=== PATIENT | female | born 1955 | race Caucasian/White ===

== ENCOUNTER 2020-01-22 07:16 | Inpatient (IN) | payer MEDICARE, OTHER ==
--- NOTE | 2020-01-22 08:08 | ED ---
General Adult HPI - General Chief complaint: Fever Stated complaint: cough, fever Time Seen by Provider: 01/22/20 07:21 Source: EMS, RN notes reviewed, old records reviewed Mode of arrival: EMS Limitations: physical limitation - History of Present Illness Initial comments: 64-year-old female presenting from [facility] with cough, fever, and concern for coronavirus.. There has been a series of known positives at this facility. Patient had developed a cough and fever over the past 24 hours. She is unable to contribute to history secondary to baseline mental status. She is bedbound, receives PEG tube feed and has an indwelling Pantoja catheter. - Related Data Allergies Allergy/AdvReac Type Severity Reaction Status Date / Time No Known Allergies Allergy Verified 01/22/20 07:57 Review of Systems ROS Statement: Those systems with pertinent positive or pertinent negative responses have been documented in the HPI. ROS Other: All systems not noted in ROS Statement are negative. Past Medical History Past Medical History: GERD/Reflux, Musculoskeletal Disorder, Renal Disease, Seizure Disorder, Thyroid Disorder History of Any Multi-Drug Resistant Organisms: None Reported Past Surgical History: Unable to Obtain Past Psychological History: Depression Smoking Status: Never smoker Past Alcohol Use History: None Reported Past Drug Use History: None Reported General Exam Limitations: no limitations General appearance: alert Head exam: Present: atraumatic, normocephalic Eye exam: Present: normal appearance, PERRL Neck exam: Present: normal inspection. Absent: tenderness, meningismus Respiratory exam: Present: rales, rhonchi. Absent: respiratory distress Cardiovascular Exam: Present: regular rate, normal rhythm GI/Abdominal exam: Present: soft. Absent: distended, tenderness, guarding Extremities exam: Present: normal inspection, normal capillary refill. Absent: pedal edema Neurological exam: Present: alert. Absent: oriented X3 Skin exam: Present: warm, dry, intact. Absent: cyanosis, diaphoretic Course Vital Signs 01/22/20 01/22/20 01/22/20 07:19 08:30 09:00 Temperature 99.8 F H Pulse Rate 84 80 81 Respiratory 18 20 21 Rate Blood Pressure 145/68 141/73 140/77 O2 Sat by Pulse 96 95 96 Oximetry EKG Findings - EKG Comments: EKG Findings:: EKG: Normal sinus rhythm, rate of 85, SC interval 184, QRS duration 82, QTC 423, no ST segment elevation Medical Decision Making - Medical Decision Making 64-year-old female from long-term care facility with cough, fever, and testing positive for coronavirus. x-ray, negative for focal pneumonia. Normal CBC, a specific wong virus test results including acute phase reactants are pending. the nursing facility where this patient resides does not have the capacity to isolate the patient's with coronavirus. She will be admitted. case discussed with Dr. Lopez, patient will be admitted with pulmonology on consult. - Lab Data Result diagrams: 01/22/20 07:31 01/22/20 07:31 Lab Results 01/22/20 01/22/20 01/22/20 Range/Units 07:31 07:31 07:31 WBC 4.3 (3.8-10.6) k/uL RBC 4.64 (3.80-5.40) m/uL Hgb 13.2 (11.4-16.0) gm/dL Hct 39.8 (34.0-46.0) % MCV 85.8 (80.0-100.0) fL MCH 28.5 (25.0-35.0) pg MCHC 33.2 (31.0-37.0) g/dL RDW 15.5 (11.5-15.5) % Plt Count 177 (150-450) k/uL PT 10.1 (9.0-12.0) sec INR 1.0 (<1.2) APTT 23.8 (22.0-30.0) sec D-Dimer 0.45 (<0.60) mg/L FEU Sodium 141 (137-145) mmol/L Potassium 4.8 (3.5-5.1) mmol/L Chloride 109 H (98-107) mmol/L Carbon Dioxide 25 (22-30) mmol/L Anion Gap 7 mmol/L BUN 33 H (7-17) mg/dL Creatinine 1.22 H (0.52-1.04) mg/dL Est GFR (CKD-EPI)AfAm 54 (>60 ml/min/1.73 sqM) Est GFR (CKD-EPI)NonAf 47 (>60 ml/min/1.73 sqM) Glucose 103 H (74-99) mg/dL Plasma Lactic Acid Rom (0.7-2.0) mmol/L Calcium 8.7 (8.4-10.2) mg/dL Magnesium 2.2 (1.6-2.3) mg/dL Total Bilirubin 0.5 (0.2-1.3) mg/dL AST 30 (14-36) U/L ALT 20 (4-34) U/L Alkaline Phosphatase 114 (38-126) U/L Lactate Dehydrogenase 576 (313-618) U/L Total Protein 7.0 (6.3-8.2) g/dL Albumin 3.9 (3.5-5.0) g/dL Urine Color Urine Appearance (Clear) Urine pH (5.0-8.0) Ur Specific [place] (1.001-1.035) Urine Protein (Negative) Urine Glucose (UA) (Negative) Urine Ketones (Negative) Urine Blood (Negative) Urine Nitrite (Negative) Urine Bilirubin (Negative) Urine Urobilinogen (<2.0) mg/dL Ur Leukocyte Esterase (Negative) Urine RBC (0-5) /hpf Urine WBC (0-5) /hpf Urine WBC Clumps (None) /hpf Ur Squamous Epith Cells (0-4) /hpf Amorphous Sediment (None) /hpf Urine Bacteria (None) /hpf Urine Mucus (None) /hpf 01/22/20 01/22/20 Range/Units 07:31 08:09 WBC (3.8-10.6) k/uL RBC (3.80-5.40) m/uL Hgb (11.4-16.0) gm/dL Hct (34.0-46.0) % MCV (80.0-100.0) fL MCH (25.0-35.0) pg MCHC (31.0-37.0) g/dL RDW (11.5-15.5) % Plt Count (150-450) k/uL PT (9.0-12.0) sec INR (<1.2) APTT (22.0-30.0) sec D-Dimer (<0.60) mg/L FEU Sodium (137-145) mmol/L Potassium (3.5-5.1) mmol/L Chloride (98-107) mmol/L Carbon Dioxide (22-30) mmol/L Anion Gap mmol/L BUN (7-17) mg/dL Creatinine (0.52-1.04) mg/dL Est GFR (CKD-EPI)AfAm (>60 ml/min/1.73 sqM) Est GFR (CKD-EPI)NonAf (>60 ml/min/1.73 sqM) Glucose (74-99) mg/dL Plasma Lactic Acid Rom 1.2 (0.7-2.0) mmol/L Calcium (8.4-10.2) mg/dL Magnesium (1.6-2.3) mg/dL Total Bilirubin (0.2-1.3) mg/dL AST (14-36) U/L ALT (4-34) U/L Alkaline Phosphatase (38-126) U/L Lactate Dehydrogenase (313-618) U/L Total Protein (6.3-8.2) g/dL Albumin (3.5-5.0) g/dL Urine Color Yellow Urine Appearance Cloudy H (Clear) Urine pH 7.5 (5.0-8.0) Ur Specific [place] 1.016 (1.001-1.035) Urine Protein 1+ H (Negative) Urine Glucose (UA) Negative (Negative) Urine Ketones Negative (Negative) Urine Blood Small H (Negative) Urine Nitrite Negative (Negative) Urine Bilirubin Negative (Negative) Urine Urobilinogen <2.0 (<2.0) mg/dL Ur Leukocyte Esterase Large H (Negative) Urine RBC 13 H (0-5) /hpf Urine WBC 57 H (0-5) /hpf Urine WBC Clumps Many H (None) /hpf Ur Squamous Epith Cells 5 H (0-4) /hpf Amorphous Sediment Rare H (None) /hpf Urine Bacteria Few H (None) /hpf Urine Mucus Few H (None) /hpf Disposition Clinical Impression: COVID-19 Disposition[facility] Condition: Stable Is patient prescribed a controlled substance at d/c from ED?: No Referrals: Andi Ivy MD [Primary Care Provider] - 1-2 days Decision to Admit Reason: Admit from EC Decision Date: 01/22/20 Decision Time: 09:09
[2020-01-22 08:27] LABS: Amorphous Sediment,Urine Rare /hpf; Appearance,Urine Cloudy (Clear); Bacteria,Urine Few /hpf; Bilirubin,Urine Negative (Negative); Blood,Urine Small (Negative); Color,Urine Yellow; Glucose,Urine (UA) Negative (Negative); Ketones,Urine Negative (Negative); Leukocyte Esterase,Urine Large (Negative); Mucus,Urine Few /hpf; Nitrite,Urine Negative (Negative); PH, Urine 7.5 (5.0-8.0); Protein,Urine 1+ (Negative); RBC,Urine 13 /hpf (0-5); Specific Gravity,Urine 1.016 (1.001-1.035); Squamous Epithelial Cell,Urine 5 /hpf (0-4); Urobilinogen,Urine <2.0 mg/dL (<2.0); WBC,Urine 57 /hpf (0-5)
[2020-01-22 08:27] LABS: D-Dimer 0.45 mg/L FEU (<0.60); Partial Thromboplastin Time 23.8 sec (22.0-30.0); Prothrombin Time 10.1 sec (9.0-12.0)
--- NOTE | 2020-01-22 08:29 | XR ---
EXAMINATION TYPE: XR chest 1V portable DATE OF EXAM: 01/22/2020 COMPARISON: NONE HISTORY: Cough and fever. Suspected COVID-19 pneumonia. TECHNIQUE: Single AP portable frontal upright view of the chest is obtained. FINDINGS: There is mild chronic parenchymal changes bilaterally suspected with reticular interstitia l prominence without suspicious focal air space opacity, pleural effusion, or pneumothorax seen. The cardiac silhouette size is mildly enlarged. The osseous structures are intact. IMPRESSION: Chronic changes and mild cardiomegaly without acute pulmonary process.
[2020-01-22 08:31] LABS: Albumin 3.9 g/dL (3.5-5.0); Calcium 8.7 mg/dL (8.4-10.2); Magnesium 2.2 mg/dL (1.6-2.3); Potassium 4.8 mmol/L (3.5-5.1); Total Bilirubin 0.5 mg/dL (0.2-1.3)
[2020-01-22] MEDS ORDERED: cefTRIAXone IN SWFI 1,000 MG/10 ML SYRINGE IVP STA (08:34)
[2020-01-22 08:36] LABS: HCT 39.8 % (34.0-46.0); HGB 13.2 gm/dL (11.4-16.0); MCH 28.5 pg (25.0-35.0); MCHC 33.2 g/dL (31.0-37.0); MCV 85.8 fL (80.0-100.0); Mean Platelet Volume 8.2; Platelet Count 177 k/uL (150-450); RBC 4.64 m/uL (3.80-5.40); RDW 15.5 % (11.5-15.5); WBC 4.3 k/uL (3.8-10.6)
[2020-01-22] MEDS ORDERED: NALOXONE 0.4 MG/ML 1 ML VIAL IV PRN (09:05)
[2020-01-22 09:07] LABS: Band Neutrophils % 2 %; Lymphocytes # (M) 0.86 k/uL (1.0-4.8); Monocytes # (M) 0.39 k/uL (0-1.0); Neutrophils % (M) 69 %; Nucleated Red Blood Cells 0 /100 WBC (0-0); Total Cells Counted 100
[2020-01-22 09:08] LABS: Anisocytosis (M) Present; Poikilocytosis (M) Present
[2020-01-22] MEDS: SODIUM CHLORIDE 0.9% 1,000 ML IV SCH (09:16)
[2020-01-22] MEDS: ACETAMINOPHEN TAB 325 MG TAB PO PRN (09:41)
[2020-01-22 09:57] LABS: C Reactive Protein 37.6 mg/L (<10.0)
[2020-01-22] MEDS ORDERED: ACETAMINOPHEN ORAL SUSP 160 MG/5 ML CUP PEG/G-TUBE PRN (12:50)
[2020-01-22] MEDS ORDERED: bisacodyL 10 MG SUPP RECTAL PRN (12:50)
[2020-01-22] MEDS ORDERED: MAGNESIUM HYDROXIDE 2,400 MG/10 ML CUP PEG/G-TUBE PRN (12:50)
[2020-01-22] MEDS: levETIRAcetam ORAL SOLN 500 MG/5 ML CUP PEG/G-TUBE SCH (16:59)
[2020-01-22] MEDS: ENOXAPARIN 40 MG/0.4 ML SYRINGE SQ SCH (17:00)
[2020-01-22] MEDS: carBAMazepine 200 MG TAB PEG/G-TUBE SCH (17:00)
[2020-01-22 17:06] LABS: Ferritin 66.6 ng/mL (10.0-291.0)
--- NOTE | 2020-01-22 18:52 | XR ---
EXAMINATION TYPE: XR abdomen 1V DATE OF EXAM: 01/22/2020 COMPARISON: NONE HISTORY: PEG tube check. TECHNIQUE: 3 views FINDINGS: Small amount of contrast was injected into the gastrostomy tube that appears to be in the b kishore of the stomach. There is no definite contrast extravasation. IMPRESSION: Gastrostomy tube appears to be in good position in the stomach. Limited exam.
--- NOTE | 2020-01-22 21:50 | P.CNPUL ---
History of Present Illness Consult date: 01/22/20 Chief complaint: fever and cough and COVID positive History of present illness: 64-year-old female patient, nonverbal due to chronic neurologic impairment , resides at [facility] and the patient was experiencing some increased cough and fever. Based on several other residents being covid positive, the patient was checked and the rapid testing came back positive and the patient was transferred to our facility for further care. The patient obviously is bedbound. She received enteral feeding for incision support. She has a chronic indwelling Pantoja catheter. She cannot volunteer any history. Time of my evaluation, the patient was on room air oxygen with a pulse is 95%. Chest x-ray was showing no acute pulmonary infiltrate. [place] presents for point. The patient has a slight lymphopenia with and lymphocyte count of 0.86. D-dimer is 0.45. LFTs were normal. The CRP was at 37.6. Lactic acid is at 1.2. The pro-calcitonin level is at 0.1. 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 History of Any Multi-Drug Resistant Organisms: None Reported Past Surgical History: Unable to Obtain Additional Past Surgical History / Comment(s): PEG Past Anesthesia/Blood Transfusion Reactions: Unable to Obtain Smoking Status: Never smoker - Past Family History Father History Unknown: Yes Mother History Unknown: Yes Medications and Allergies Home Medications Medication Instructions Recorded Confirmed Type Acetaminophen Oral Susp [Tylenol] 640 mg PEG/G-TUBE Q6H PRN 01/22/20 01/22/20 History Aspirin EC [Ecotrin Low Dose] 81 mg PEG/G-TUBE DAILY@0700 01/22/20 01/22/20 History Banatrol Plus 1 pack PEG/G-TUBE Q12H PRN 01/22/20 01/22/20 History Clobazam [Onfi] 10 mg PO DAILY@1700 01/22/20 01/22/20 History Esomeprazole Magnesium [NexIUM] 40 mg PEG/G-TUBE DAILY@0500 01/22/20 01/22/20 History Fluticasone Nasal [place] [Flonase 1 spr EA NOSTRIL DAILY@1200 01/22/20 01/22/20 History Nasal [place]] Levothyroxine Sodium [Synthroid] 150 mcg PEG/G-TUBE DAILY@0300 01/22/20 01/22/20 History Liquacel Liquid 30 ml PEG/G-TUBE DAILY@0700 01/22/20 01/22/20 History Magnesium Hydroxide [Milk of 2,400 mg PEG/G-TUBE Q48H PRN 01/22/20 01/22/20 History Magnesia] Na Phos,M-B/Na Phos,Di-Ba [Fleet 133 ml PEG/G-TUBE Q96H PRN 01/22/20 01/22/20 History Adult] bisacodyL [Dulcolax] 10 mg RECTAL DAILY PRN 01/22/20 01/22/20 History carBAMazepine [carBAMazepine Oral 300 mg PEG/G-TUBE BID@0700,1700 01/22/20 01/22/20 History Susp] levETIRAcetam [Keppra Oral 500 mg PEG/G-TUBE BID@0700,1700 01/22/20 01/22/20 History Solution] Allergies Allergy/AdvReac Type Severity Reaction Status Date / Time No Known Allergies Allergy Verified 01/22/20 09:52 Physical Exam Vitals: Vital Signs Temp Pulse Pulse Resp BP BP Pulse Ox 01/22/20 14:14 98.2 F 71 17 103/71 93 L 01/22/20 12:30 73 21 150/73 94 L 01/22/20 12:00 77 23 151/75 94 L 01/22/20 11:30 77 24 149/67 94 L 01/22/20 11:18 98.7 F 01/22/20 11:00 77 24 155/70 95 01/22/20 10:41 99.1 F 01/22/20 10:30 79 23 147/79 94 L 01/22/20 10:00 80 24 143/79 95 01/22/20 09:51 100.1 F H 01/22/20 09:30 80 22 152/75 94 L 01/22/20 09:00 81 21 140/77 96 01/22/20 08:30 80 20 141/73 95 01/22/20 07:19 99.8 F H 84 18 145/68 96 Intake and Output 01/22/20 01/22/20 01/22/20 06:59 14:59 22:59 Other: Voiding Method Indwelling Catheter Weight 104.326 kg The patient appeared well nourished and normally developed. Vital signs as documented. Head exam is unremarkable. No scleral icterus or corneal arcus noted. Neck is without jugular venous distension, thyromegaly, or carotid bruits. Carotid upstrokes are brisk bilaterally. Lungs are clear to auscultation and percussion. Cardiac exam reveals the PMI to be normally sized and situated. Rhythm is regular. First and second heart sounds normal. No murmurs, rubs or gallops. Abdominal exam reveals normal bowel sounds, no masses, no organomegaly and no aortic enlargement. the patient is a PEG tube placed on the patient'sactivated site is dry clean and intact. Extremities are nonedematous and both femoral and pedal pulses are normal.Examination of the skin revealed no evidence of significant rashes, suspicious appearing nevi or other concerning lesions. Results - Laboratory Findings CBC and BMP: 01/22/20 07:31 01/22/20 07:31 PT/INR, D-dimer PT 10.1 sec (9.0-12.0) 01/22/20 07:31 INR 1.0 (<1.2) 01/22/20 07:31 D-Dimer 0.45 mg/L FEU (<0.60) 01/22/20 07:31 Abnormal lab findings: Abnormal Labs 01/22/20 01/22/20 01/22/20 07:31 07:31 08:09 Lymphocytes # (Manual) 0.86 L Chloride 109 H BUN 33 H Creatinine 1.22 H Glucose 103 H C-Reactive Protein 37.6 H Urine Appearance Cloudy H Urine Protein 1+ H Urine Blood Small H Ur Leukocyte Esterase Large H Urine RBC 13 H Urine WBC 57 H Urine WBC Clumps Many H Ur Squamous Epith Cells 5 H Amorphous Sediment Rare H Urine Bacteria Few H Urine Mucus Few H - Diagnostic Findings Chest x-ray: image reviewed Assessment and Plan Plan: 1 COVID 19 infection, with secondary cough and fever. The patient has a signs of respiratory insufficiency and the patient has no sins of active pneumonia and the patient is maintaining a pulse ox of 95% 2 suspected UTI, the patient has a chronic indwelling Pantoja catheter for chronic urinary retention 3 developmental disorder 4 history of chronic seizures 5 neuromuscular dysfunction secondary to above 6 dysphagia, chronic and the patient receives enteral feeding for nutritional support 7 chronic urinary retention and the patient is a chronic indwelling Pantoja catheter. 8 Questionable history of DVT and pulmonary embolism 9 chronic kidney disease 10 hypothyroidism Plan Monitor Fever pattern Monitor respiratory status Monitor pulse ox IV Rocephin for possible UTI Urine cultures Blood cultures Enteral feeding for nutritional support Lovenox 40 mg SC daily Will follow.
--- NOTE | 2020-01-22 22:27 | P.HPIM ---
History of Present Illness H&P Date: 01/22/20 Patient is a 64-year-old female with a known history of developmental disorder and neuromuscular dysfunction, dysphagia status post PEG tube placement, urinary retention and chronic indwelling Pantoja catheter and bedridden, history of DVT and seizure disorder, hypothyroidism was sent to ER with complaints of cough and fever for the past 1 to 2 days. T-max was 100.1 on admission. Patient was tested positive at [facility] and was transferred to ER for further management. Chest x-ray showed chronic changes and mild cardiomegaly without acute pulmonary process EKG showed normal sinus rhythm Abdominal x-ray was done due to distention showed gastrostomy tube appears to be in good position in the stomach. Limited exam. Laboratory data showed absolute lymphocyte counts 0.86, BUN 33 and creatinine 1.22 LDH 576, ferritin 66.6, pro calcitonin 0.13 Urinalysis showed cloudy with large leukocyte esterase with RBCs and WBCs. Review of Systems Complete review of systems could not be obtained at this time. 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 History of Any Multi-Drug Resistant Organisms: None Reported Past Surgical History: Unable to Obtain Additional Past Surgical History / Comment(s): PEG Past Anesthesia/Blood Transfusion Reactions: Unable to Obtain Smoking Status: Never smoker - Past Family History Father History Unknown: Yes Mother History Unknown: Yes Medications and Allergies Home Medications Medication Instructions Recorded Confirmed Type Acetaminophen Oral Susp [Tylenol] 640 mg PEG/G-TUBE Q6H PRN 01/22/20 01/22/20 H istory Aspirin EC [Ecotrin Low Dose] 81 mg PEG/G-TUBE DAILY@0700 01/22/20 01/22/20 History Banatrol Plus 1 pack PEG/G-TUBE Q12H PRN 01/22/20 01/22/20 History Clobazam [Onfi] 10 mg PO DAILY@1700 01/22/20 01/22/20 History Esomeprazole Magnesium [NexIUM] 40 mg PEG/G-TUBE DAILY@0500 01/22/20 01/22/20 History Fluticasone Nasal [place] [Flonase 1 spr EA NOSTRIL DAILY@1200 01/22/20 01/22/20 History Nasal [place]] Levothyroxine Sodium [Synthroid] 150 mcg PEG/G-TUBE DAILY@0300 01/22/20 01/22/20 History Liquacel Liquid 30 ml PEG/G-TUBE DAILY@0700 01/22/20 01/22/20 History Magnesium Hydroxide [Milk of 2,400 mg PEG/G-TUBE Q48H PRN 01/22/20 01/22/20 History Magnesia] Na Phos,M-B/Na Phos,Di-Ba [Fleet 133 ml PEG/G-TUBE Q96H PRN 01/22/20 01/22/20 History Adult] bisacodyL [Dulcolax] 10 mg RECTAL DAILY PRN 01/22/20 01/22/20 History carBAMazepine [carBAMazepine Oral 300 mg PEG/G-TUBE BID@0700,1700 01/22/20 01/22/20 History Susp] levETIRAcetam [Keppra Oral 500 mg PEG/G-TUBE BID@0700,1700 01/22/20 01/22/20 History Solution] Allergies Allergy/AdvReac Type Severity Reaction Status Date / Time No Known Allergies Allergy Verified 01/22/20 09:52 Physical Exam Vitals: Vital Signs Temp Pulse Resp BP Pulse Ox 01/22/20 12:30 73 21 150/73 94 L 01/22/20 12:00 77 23 151/75 94 L 01/22/20 11:30 77 24 149/67 94 L 01/22/20 11:18 98.7 F 01/22/20 11:00 77 24 155/70 95 01/22/20 10:41 99.1 F 01/22/20 10:30 79 23 147/79 94 L 01/22/20 10:00 80 24 143/79 95 01/22/20 09:51 100.1 F H 01/22/20 09:30 80 22 152/75 94 L 01/22/20 09:00 81 21 140/77 96 01/22/20 08:30 80 20 141/73 95 01/22/20 07:19 99.8 F H 84 18 145/68 96 Intake and Output 01/21/20 01/22/20 01/22/20 22:59 06:59 14:59 Other: Weight 104.326 kg PHYSICAL EXAMINATION: Patient is lying in the bed comfortably, no acute distress, awake alert but not oriented.. HEENT: Normocephalic. Neck is supple. Pupils reactive. Nostrils clear. Oral cavity is moist. Ears reveal no drainage. Neck reveals no JVD, carotid bruits, or thyromegaly. CHEST EXAMINATION: Trachea is central. Symmetrical expansion. Bibasilar diminished air entry.Lung zheng clear to auscultation and percussion. CARDIAC: Normal S1, S2 with no gallops. No murmurs ABDOMEN: Soft. distended. Bowel sounds present. PEG tube site with yellowish drainage and surrounding excoriation. No organomegaly. No abdominal bruits. Extremities: trace edema. No clubbing or cyanosis Neurologically awake, alert and non verbal. able to move extremities while on bed Skin: No rash or skin lesions. Psychiatric: Coperative. Musculoskeletal: No joint swelling or deformity. Results CBC & Chem 7: 01/22/20 07:31 01/22/20 07:31 Labs: Abnormal Lab Results - Last 24 Hours (Table) 01/22/20 01/22/20 01/22/20 Range/Units 07:31 07:31 08:09 Lymphocytes # (Manual) 0.86 L (1.0-4.8) k/uL Chloride 109 H (98-107) mmol/L BUN 33 H (7-17) mg/dL Creatinine 1.22 H (0.52-1.04) mg/dL Glucose 103 H (74-99) mg/dL C-Reactive Protein 37.6 H (<10.0) mg/L Urine Appearance Cloudy H (Clear) Urine Protein 1+ H (Negative) Urine Blood Small H (Negative) Ur Leukocyte Esterase Large H (Negative) Urine RBC 13 H (0-5) /hpf Urine WBC 57 H (0-5) /hpf Urine WBC Clumps Many H (None) /hpf Ur Squamous Epith Cells 5 H (0-4) /hpf Amorphous Sediment Rare H (None) /hpf Urine Bacteria Few H (None) /hpf Urine Mucus Few H (None) /hpf Thrombosis Risk Factor Assmnt - DVT/VTE Prophylaxis DVT/VTE Prophylaxis: Pharmacologic Prophylaxis ordered - Choose All That Apply Any of the Below Risk Factors Present?: Yes Each Factor Represents 1 point: Obesity (BMI >25), Serious lung disease incl. pneumonia (< 1month) Other Risk Factors: Yes Each Risk Factor Represents 2 Points: Age 61-74 years Other congenital or acquired thrombophilia - If yes, enter type in comment: No Thrombosis Risk Factor Assessment Total Risk Factor Score: 4 Thrombosis Risk Factor Assessment Level: Moderate Risk Assessment and Plan Assessment: Acute COVID-19 infection with cough and fever. Acute urinary tract infection complicated with underlying chronic indwelling Pantoja catheter. Malfunction PEG tube Abdominal distention rule out obstruction. Developmental disorder and neuromuscular dysfunction Chronic dysphagia on PEG tube feeding Chronic urinary retention Hypothyroidism Chronic kidney disease stage III Seizure disorder on Keppra DVT prophylaxis with Lovenox 40 mg subcu daily Plan: Patient will be continued on gentle IV hydration with normal saline and continue with antibiotics in the form of ceftriaxone and follow-up urine culture reports. Continue with levothyroxine and follow-up closely. Currently patient is oxygenating well on room air. Pulmonary is on board. General surgery was consulted due to PEG tube malfunctioning and unable to flush. Further recommendations based on the clinical course. Prognosis guarded at this time. Time with Patient: Greater than 30
[2020-01-23] MEDS: LEVOTHYROXINE 75 MCG TAB PEG/G-TUBE SCH (02:33)
[2020-01-23] MEDS: PANTOPRAZOLE SODIUM 40 MG GRANULE PKT PEG/G-TUBE SCH (02:33)
[2020-01-23] MEDS ORDERED: LIQUACEL PEG/G-TUBE SCH (07:00)
[2020-01-23] MEDS: SODIUM CHLORIDE 0.9% 1,000 ML IV SCH (07:13)
[2020-01-23] MEDS: ENOXAPARIN 40 MG/0.4 ML SYRINGE SQ SCH (08:12)
[2020-01-23] MEDS: ASPIRIN 81 MG PEG/G-TUBE SCH (08:12)
[2020-01-23] MEDS: levETIRAcetam ORAL SOLN 500 MG/5 ML CUP PEG/G-TUBE SCH ×2 (08:13→17:06)
[2020-01-23] MEDS: FLUTICASONE 50MCG/SPRAY NASAL 16GM EA NOSTRIL SCH (08:13)
[2020-01-23] MEDS: carBAMazepine 200 MG TAB PEG/G-TUBE SCH ×2 (08:13→17:07)
--- NOTE | 2020-01-23 13:17 | P.GSCN ---
<Violet Membreno - Last Filed: 01/23/20 13:16> History of Present Illness Consult date: 01/23/20 History of present illness: CHIEF COMPLAINT: PEG tube malfunction HISTORY OF PRESENT ILLNESS: This is a 64-year-old female with developmental disorder, neuromuscular dysfunction, dysphagia status post PEG tube placement chronic indwelling Pantoja catheter for urinary retention, history of DVT and se izure disorder, hypothyroidism and chronic kidney disease. Patient is Tested positive for cold added at the scene like [facility]. There has been a series of known positive Covid cases at this facility. She did have cough and fever 100.1 on admission. Patient also was found to have a UTI and started on antibiotics. Surgery was consulted due to malfunctioning PEG tube. There is also concern of pus like drainage coming from the PEG tube aspirate per nurse. Cultures were obtained. At this time PEG tube is functioning appropriately. The nurse was able to place medications through the PEG tube. Abdominal x-ray shows gastrostomy tube appears to be in good position in the s tomach. There has been no nausea or vomiting reported. No evidence of abdominal pain. Please note that patient is unable to communicate and his poor historian. Therefore, information was obtained from chart and nursing staff. PAST MEDICAL HISTORY: See list. PAST SURGICAL HISTORY: See list. MEDICATIONS: See list. ALLERGIES: See list. SOCIAL HISTORY: No illicit drug use. REVIEW OF SYSTEMS: CONSTITUTIONAL: Denies fever or chills. HEENT: Denies blurred vision, vision changes, or eye pain. Denies hemoptysis CARDIOVASCULAR: Denies chest pain or pressure. RESPIRATORY: No shortness of breath. GASTROINTESTINAL: See HPI for pertinent findings HEMATOLOGIC: Denies bleeding disorders. GENITOURINARY: Denies any blood in urine or increased urinary frequency. SKIN: Denies pruitis. Denies rash. PHYSICAL EXAM: VITAL SIGNS: Reviewed GENERAL: Well-developed in no acute distress. HEENT: No sclera icterus. Extraocular movements grossly intact. Moist buccal mucosa. Head is atraumatic, normocephalic. No nasal drainage. ABDOMEN: Soft. Nondistended. Nontender. PEG tube site no evidence of drainage at this time. PEG tube is in good position NEUROLOGIC: Awake and lying in bed comfortably. LABORATORY DATA: WBC 4.3 hemoglobin 13.2 platelets 177 D-dimer 0.45 lactic 1.2 IMAGING: Abdominal x-ray shows gastrostomy tube appears to be in good position in the stomach Chest x-ray chronic changes and mild cardiomegaly without acute pulmonary process ASSESSMENT: 1. Possible Malfunctioning PEG tube 2. Acute COVID 19 infection with cough and fever 3. UTI with chronic indwelling Pantoja catheter 4. Chronic dysphagia and patient has PEG tube PLAN: -PEG tube is in good position and functioning appropriately -We'll restart tube feedings Thank you for this consultation Physician Test Driver note has been reviewed by physician. Signing provider agrees with the documented findings, assessment, and plan of care. 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 History of Any Multi-Drug Resistant Organisms: None Reported Past Surgical History: Unable to Obtain Additional Past Surgical History / Comment(s): PEG Past Anesthesia/Blood Transfusion Reactions: Unable to Obtain Smoking Status: Never smoker - Past Family History Father History Unknown: Yes Mother History Unknown: Yes Medications and Allergies Home Medications Medication Instructions Recorded Confirmed Type Acetaminophen Oral Susp [Tylenol] 640 mg PEG/G-TUBE Q6H PRN 01/22/20 01/22/20 History Aspirin EC [Ecotrin Low Dose] 81 mg PEG/G-TUBE DAILY@0700 01/22/20 01/22/20 History Banatrol Plus 1 pack PEG/G-TUBE Q12H PRN 01/22/20 01/22/20 History Clobazam [Onfi] 10 mg PO DAILY@1700 01/22/20 01/22/20 History Esomeprazole Magnesium [NexIUM] 40 mg PEG/G-TUBE DAILY@0500 01/22/20 01/22/20 History Fluticasone Nasal [place] [Flonase 1 spr EA NOSTRIL DAILY@1200 01/22/20 01/22/20 History Nasal [place]] Levothyroxine Sodium [Synthroid] 150 mcg PEG/G-TUBE DAILY@0300 01/22/20 01/22/20 History Liquacel Liquid 30 ml PEG/G-TUBE DAILY@0700 01/22/20 01/22/20 History Magnesium Hydroxide [Milk of 2,400 mg PEG/G-TUBE Q48H PRN 01/22/20 01/22/20 History Magnesia] Na Phos,M-B/Na Phos,Di-Ba [Fleet 133 ml PEG/G-TUBE Q96H PRN 01/22/20 01/22/20 History Adult] bisacodyL [Dulcolax] 10 mg RECTAL DAILY PRN 01/22/20 01/22/20 History carBAMazepine [carBAMazepine Oral 300 mg PEG/G-TUBE BID@0700,1700 01/22/20 01/22/20 History Susp] levETIRAcetam [Keppra Oral 500 mg PEG/G-TUBE BID@0700,1700 01/22/20 01/22/20 History Solution] Allergies Allergy/AdvReac Type Severity Reaction Status Date / Time No Known Allergies Allergy Verified 01/22/20 09:52 Surgical - Exam Vital Signs Temp Pulse Resp BP Pulse Ox 99.8 F H 84 18 145/68 96 01/22/20 07:19 01/22/20 07:19 01/22/20 07:19 01/22/20 07:19 01/22/20 07:19 Results - Labs 01/22/20 07:31 01/22/20 07:31 Abnormal Lab Results - Last 24 Hours (Table) 01/22/20 Range/Units 07:31 Procalcitonin 0.13 H (0.02-0.09) ng/mL Microbiology - Last 24 Hours (Table) 01/22/20 07:31 Blood Culture - Preliminary Blood No Growth after 24 hours 01/22/20 18:00 Gram Stain - Preliminary Abdomen Wound Culture - Preliminary 01/22/20 08:09 Urine Culture - Preliminary Urine,Voided <Rusty Denton - Last Filed: 01/23/20 13:46> History of Present Illness History of present illness: As above. Patient apparently had a large amount of gastric secretions around the PEG tube yesterday. Concern regarding the positioning of the tube initiated surgical consult. Catheterogram confirmed feeding tube within the stomach. Per nursing has been flushing easily. Will begin tube feeds at this time. Currently the site is free of any significant inflammation or drainage. Will follow. Surgical - Exam Vital Signs Temp Pulse Resp BP Pulse Ox 99.8 F H 84 18 145/68 96 01/22/20 07:19 01/22/20 07:19 01/22/20 07:19 01/22/20 07:19 01/22/20 07:19 Results - Labs 01/22/20 07:31 01/22/20 07:31 Abnormal Lab Results - Last 24 Hours (Table) 01/22/20 Range/Units 07:31 Procalcitonin 0.13 H (0.02-0.09) ng/mL Microbiology - Last 24 Hours (Table) 01/22/20 07:31 Blood Culture - Preliminary Blood No Growth after 24 hours 01/22/20 18:00 Gram Stain - Preliminary Abdomen Wound Culture - Preliminary 01/22/20 08:09 Urine Culture - Preliminary Urine,Voided
--- NOTE | 2020-01-23 13:38 | P.PN ---
Subjective Progress Note Date: 01/23/20 Principal diagnosis: Acute CoVID 19 infection 64-year-old female patient, nonverbal due to chronic neurologic impairment , resides at [facility] and the patient was experiencing some increased cough and fever. Based on several other residents being covid positive, the patient was checked and the rapid testing came back positive and the patient was transferred to our facility for further care. The patient obviously is bedbound. She received enteral feeding for incision support. She has a chronic indwelling Pantoja catheter. She cannot volunteer any history. Time of my evaluation, the patient was on room air oxygen with a pulse is 95%. Chest x-ray was showing no acute pulmonary infiltrate. Parvin presents for point. The patient has a slight lymphopenia with and lymphocyte count of 0.86. D-dimer is 0.45. LFTs were normal. The CRP was at 37.6. Lactic acid is at 1.2. The pro-calcitonin level is at 0.1. Urinalysis showing +1 protein, 57 WBC with clumps. The patient is seen today 01/23/2020 in follow-up on the regular medical floor. She is currently resting comfortably in bed. Awake and alert in no acute distress. Maintaining O2 saturations in the low 90s on room air. Temperature 99.1. Blood culture reveals no growth. Urine culture pending. Abdominal wound culture pending. Abdominal x-ray revealed gastrostomy tube in good position in the stomach. She is currently on ceftriaxone, Lovenox. Objective - Vital Signs Vital signs: Vital Signs Temp 99.1 F 01/23/20 07:00 Pulse 87 01/23/20 07:00 Resp 16 01/23/20 07:00 BP 164/80 01/23/20 07:00 Pulse Ox 91 L 01/23/20 07:00 Intake & Output 01/22/20 01/23/20 01/23/20 18:59 06:59 18:59 Output Total 550 400 Balance -550 -400 Weight 104.326 kg Output: Urine 550 400 Uretheral (Pantoja) 550 Other: Voiding Method Indwelling Catheter Indwelling Catheter Indwelling Catheter # Bowel Movements 1 - Exam A 64-year-old female patient appeared well nourished and normally developed. On room air. Vital signs as documented. Head exam is unremarkable. No scleral icterus or corneal arcus noted. Neck is without jugular venous distension, thyromegaly, or carotid bruits. Carotid upstrokes are brisk bilaterally. Lungs are clear to auscultation and percussion. Cardiac exam reveals the PMI to be normally sized and situated. Rhythm is regular. First and second heart sounds normal. No murmurs, rubs or gallops. Abdominal exam reveals normal bowel sounds, no masses, no organomegaly and no aortic enlargement. PEG tube site is dry clean and intact. Extremities are nonedematous and both femoral and pedal pulses are normal. Examination of the skin revealed no evidence of significant rashes, suspicious appearing nevi or other concerning lesions. - Labs CBC & Chem 7: 01/22/20 07:31 01/22/20 07:31 Labs: Abnormal Lab Results - Last 24 Hours (Table) 01/22/20 Range/Units 07:31 Procalcitonin 0.13 H (0.02-0.09) ng/mL Microbiology - Last 24 Hours (Table) 01/22/20 07:31 Blood Culture - Preliminary Blood No Growth after 24 hours 01/22/20 18:00 Gram Stain - Preliminary Abdomen Wound Culture - Preliminary 01/22/20 08:09 Urine Culture - Preliminary Urine,Voided Assessment and Plan Assessment: 1 COVID 19 infection, with secondary cough and fever. The patient has a signs of respiratory insufficiency and the patient has no signs of active pneumonia and the patient is maintaining a pulse ox of 91% 2 suspected UTI, the patient has a chronic indwelling Pantoja catheter for chronic urinary retention, currently on ceftriaxone 3 developmental disorder 4 history of chronic seizures 5 neuromuscular dysfunction secondary to above 6 dysphagia, chronic and the patient receives enteral feeding for nutritional support 7 chronic urinary retention and the patient is a chronic indwelling Pantoja catheter. 8 Questionable history of DVT and pulmonary embolism 9 chronic kidney disease 10 hypothyroidism Plan The patient was seen and evaluated by Dr. Rick Continue current medications We'll continue to follow I, the cosigning physician, performed a history & physical examination of the patient. Lungs sounds are clear. Maintaining good O2 saturations in the 90s on room air. I discussed the assessment and plan of care with my nurse practitioner, Tiffani Corea. I attest to the above note as dictated by her.
[2020-01-23] MEDS: ACETAMINOPHEN TAB 325 MG TAB PO PRN (17:25)
[2020-01-23] MEDS ORDERED: LEVOFLOXACIN 500 MG TAB PO SCH (21:00)
[2020-01-24] MEDS: SODIUM CHLORIDE 0.9% 1,000 ML IV SCH ×2 (04:23→22:41)
[2020-01-24] MEDS: PANTOPRAZOLE SODIUM 40 MG GRANULE PKT PEG/G-TUBE SCH (05:26)
[2020-01-24] MEDS: LEVOTHYROXINE 75 MCG TAB PEG/G-TUBE SCH (05:26)
[2020-01-24] MEDS: ENOXAPARIN 40 MG/0.4 ML SYRINGE SQ SCH (08:05)
[2020-01-24] MEDS: carBAMazepine 200 MG TAB PEG/G-TUBE SCH ×2 (08:06→16:23)
[2020-01-24] MEDS: ASPIRIN 81 MG PEG/G-TUBE SCH (08:06)
[2020-01-24] MEDS: levETIRAcetam ORAL SOLN 500 MG/5 ML CUP PEG/G-TUBE SCH ×2 (08:06→16:23)
[2020-01-24] MEDS: FLUTICASONE 50MCG/SPRAY NASAL 16GM EA NOSTRIL SCH (11:21)
--- NOTE | 2020-01-24 12:41 | P.PN ---
Subjective Progress Note Date: 01/24/20 Principal diagnosis: Feeding tube malfunction Patient doing well today. Tolerating tube feeds at goal. No issues with the feeding tube at this time. No obvious discomfort. Objective - Vital Signs Vital signs: Vital Signs Temp 97.8 F 01/24/20 07:00 Pulse 76 01/24/20 07:00 Resp 16 01/24/20 07:00 BP 145/71 01/24/20 07:00 Pulse Ox 94 L 01/24/20 07:00 Intake & Output 01/23/20 01/24/20 01/24/20 18:59 06:59 18:59 Output Total 400 Balance -400 Weight 84 kg 85.5 kg 85.5 kg Output: Urine 400 Other: Voiding Method Indwelling Catheter Indwelling Catheter Indwelling Catheter # Bowel Movements 1 - Exam Abdomen: Soft, nontender, nondistended, gastrostomy tube intact without abnormalities noted - Labs CBC & Chem 7: 01/22/20 07:31 01/22/20 07:31 Labs: Microbiology - Last 24 Hours (Table) 01/22/20 07:31 Blood Culture - Preliminary Blood No Growth after 48 hours 01/22/20 08:09 Urine Culture - Final Urine,Voided Pseudomonas aeruginosa Providencia stuartii 01/22/20 18:00 Gram Stain - Preliminary Abdomen Wound Culture - Preliminary Presumptive Staph aureus Assessment and Plan (1) Gastrostomy tube dysfunction Narrative/Plan: Gastrostomy tube functioning well at this time. Continue tube feeds at goal. We'll sign off. Please call if needed. Current Visit: Yes Status: Acute Code(s): K94.23 - GASTROSTOMY MALFUNCTION SNOMED Code(s): 581187574
--- NOTE | 2020-01-24 14:46 | P.PN ---
Subjective Progress Note Date: 01/24/20 Principal diagnosis: Acute Covid 19 infection 64-year-old female patient, nonverbal due to chronic neurologic impairment , resides at [facility] and the patient was experiencing some increased cough and fever. Based on several other residents being covid positive, the patient was checked and the rapid testing came back positive and the patient was transferred to our facility for further care. The patient obviously is bedbound. She received enteral feeding for incision support. She has a chronic indwelling Pantoja catheter. She cannot volunteer any history. Time of my evaluation, the patient was on room air oxygen with a pulse is 95%. Chest x-ray was showing no acute pulmonary infiltrate. Parvin presents for point. The patient has a slight lymphopenia with and lymphocyte count of 0.86. D-dimer is 0.45. LFTs were normal. The CRP was at 37.6. Lactic acid is at 1.2. The pro-calcitonin level is at 0.1. Urinalysis showing +1 protein, 57 WBC with clumps. The patient is seen today 01/23/2020 in follow-up on the regular medical floor. She is currently resting comfortably in bed. Awake and alert in no acute distress. Maintaining O2 saturations in the low 90s on room air. Temperature 99.1. Blood culture reveals no growth. Urine culture pending. Abdominal wound culture pending. Abdominal x-ray revealed gastrostomy tube in good position in the stomach. She is currently on ceftriaxone, Lovenox. On 01/24/2020 patient seen in follow-up on selective care unit. She is awake and alert, much more awake on today's evaluation, and she is able to answer some simple questions. Appears to be in no acute distress, room air pulse ox is 96%, hemodynamically stable, she's been afebrile today, her last episode of fever was yesterday evening with a temp of 101 Fahrenheit. Her Covid 19 PCR came back positive. Her urine culture showed pseudomonas aeruginosa and Providencia STuartii, . Ceftriaxone switch the patient to Fortaz. Remains on IV hydration with 0.9 normal saline at 50 ML per hour. Breathing seems to be comfortable, no cough or congestion, productive chest pain. Room air pulse ox is 96% Objective - Vital Signs Vital signs: Vital Signs Temp 98.3 F 01/24/20 14:02 Pulse 73 10/30/20 14:02 Resp 16 01/24/20 14:02 BP 131/74 01/24/20 14:02 Pulse Ox 96 01/24/20 14:02 Intake & Output 01/23/20 01/24/20 01/24/20 18:59 06:59 18:59 Output Total 400 Balance -400 Weight 84 kg 85.5 kg 85.5 kg Output: Urine 400 Other: Voiding Method Indwelling Catheter Indwelling Catheter Indwelling Catheter # Bowel Movements 1 - Exam GENERAL EXAM: Alert, very pleasant, 64-year-old female on room air with pulse ox of 96%, comfortable in no apparent distress. HEAD: Normocephalic/atraumatic. EYES: Normal reaction of pupils, equal size. Conjunctiva pink, sclera white. NOSE: Clear with pink turbinates. THROAT: No erythema or exudates. NECK: No masses, no JVD, no thyroid enlargement, no adenopathy. CHEST: No chest wall deformity. Symmetrical expansion. LUNGS: Equal air entry with no crackles, wheeze, rhonchi or dullness. CVS: Regular rate and rhythm, normal S1 and S2, no gallops, no murmurs, no rubs ABDOMEN: Soft, nontender. No hepatosplenomegaly, normal bowel sounds, no guarding or rigidity. EXTREMITIES: No clubbing, no edema, no cyanosis, 2+ pulses and upper and lower extremities. MUSCULOSKELETAL: Muscle strength and tone normal. SPINE: No scoliosis or deformity SKIN: No rashes CENTRAL NERVOUS SYSTEM: Alert and oriented -3. No focal deficits, tone is normal in all 4 extremities. PSYCHIATRIC: Alert and oriented -3. Appropriate affect. Intact judgment and insight. - Labs CBC & Chem 7: 01/22/20 07:31 01/22/20 07:31 Labs: Abnormal Lab Results - Last 24 Hours (Table) 01/22/20 Range/Units 07:31 Coronavirus (PCR) Detected A (Not Detected) Microbiology - Last 24 Hours (Table) 01/22/20 07:31 Blood Culture - Preliminary Blood No Growth after 48 hours 01/22/20 08:09 Urine Culture - Final Urine,Voided Pseudomonas aeruginosa Providencia stuartii 01/22/20 18:00 Gram Stain - Preliminary Abdomen Wound Culture - Preliminary Presumptive Staph aureus Assessment and Plan Plan: Assessment: 1 COVID 19 infection, with secondary cough and fever. The patient has a signs of respiratory insufficiency and the patient has no signs of active pneumonia and the patient is maintaining a pulse ox of 91% 2 acute UTI, the patient has a chronic indwelling Pantoja catheter for chronic urinary retention, with urine cultures positive for pseudomonas aeruginosa and Providencia STuartii 3 developmental disorder 4 history of chronic seizures 5 neuromuscular dysfunction secondary to above 6 dysphagia, chronic and the patient receives enteral feeding for nutritional support 7 chronic urinary retention and the patient is a chronic indwelling Pantoja catheter. 8 Questionable history of DVT and pulmonary embolism 9 chronic kidney disease 10 hypothyroidism Plan: We'll switch the antibiotic coverage to Fortaz, DC the Rocephin. Continue gentle IV hydration, repeat labs in the morning, she is breathing comfortably, she is afebrile. Continue monitoring dyspnea, oxygenation level, will obtain follow-up markers in the morning. We'll continue to follow I performed a history & physical examination of the patient and discussed their management with my nurse practitioner, Nicole Belcher. I reviewed the nurse practitioner's note and agree with the documented findings and plan of care. Lung sounds are positive for diminished breath sounds. The findings and the impression was discussed with the patient. I attest to the documentation by the nurse practitioner. Time with Patient: Less than 30
[2020-01-24] MEDS ORDERED: LEVOFLOXACIN 250 MG TAB PO SCH (21:00)
--- NOTE | 2020-01-24 23:41 | P.PN ---
Subjective Progress Note Date: 01/23/20 Patient is a 64-year-old female with a known history of developmental disorder and neuromuscular dysfunction, dysphagia status post PEG tube placement, urinary retention and chronic indwelling Pantoja catheter and bedridden, history of DVT and seizure disorder, hypothyroidism was sent to ER with complaints of cough and fever for the past 1 to 2 days. T-max was 100.1 on admission. [facility] and was transferred to ER for further management. Chest x-ray showed chronic changes and mild cardiomegaly without acute pulmonary process EKG showed normal sinus rhythm Abdominal x-ray was done due to distention showed gastrostomy tube appears to be in good position in the stomach. Limited exam. Laboratory data showed absolute lymphocyte counts 0.86, BUN 33 and creatinine 1.22 LDH 576, ferritin 66.6, pro calcitonin 0.13 Urinalysis showed cloudy with large leukocyte esterase with RBCs and WBCs. 01/23/2020 Patient is currently lying in the bed comfortably. T-max is 99.1. Blood cultures and urine cultures have been negative so far. Abdominal x-ray showed gastrostomy tube appears to be in good position in the stomach. General surgery recommends no intervention at this time. Patient is being continued on antibiotics in the form of ceftriaxone and follow- up urine culture report. Continue with Lovenox 90 gentle IV hydration. Patient cannot provide any history at baseline. Current medications reviewed. Objective - Vital Signs Vital signs: Vital Signs Temp 98.1 F 01/23/20 19:31 Pulse 81 01/23/20 19:31 Resp 15 01/23/20 19:31 BP 174/82 01/23/20 19:31 Pulse Ox 93 L 01/23/20 19:31 Intake & Output 01/23/20 01/23/20 01/24/20 06:59 18:59 06:59 Output Total 400 Balance -400 Weight 84 kg Output: Urine 400 Other: Voiding Method Indwelling Catheter Indwelling Catheter # Bowel Movements 1 - Exam PHYSICAL EXAMINATION: Patient is lying in the bed comfortably, no acute distress, awake alert but not oriented.. HEENT: Normocephalic. Neck is supple. Pupils reactive. Nostrils clear. Oral cavity is moist. Ears reveal no drainage. Neck reveals no JVD, carotid bruits, or thyromegaly. CHEST EXAMINATION: Trachea is central. Symmetrical expansion. Bibasilar diminished air entry.Lung zheng clear to auscultation and percussion. CARDIAC: Normal S1, S2 with no gallops. No murmurs ABDOMEN: Soft. distended. Bowel sounds present. PEG tube site with yellowish drainage and surrounding excoriation. No organomegaly. No abdominal bruits. Extremities: trace edema. No clubbing or cyanosis Neurologically awake, alert and non verbal. able to move extremities while on bed Skin: No rash or skin lesions. Psychiatric: Coperative. Musculoskeletal: No joint swelling or deformity. - Labs CBC & Chem 7: 01/22/20 07:31 01/22/20 07:31 Labs: Microbiology - Last 24 Hours (Table) 01/22/20 18:00 Gram Stain - Preliminary Abdomen Wound Culture - Preliminary Presumptive Staph aureus 01/22/20 08:09 Urine Culture - Preliminary Urine,Voided Gram Neg Bacilli Gram Neg Bacilli#2 01/22/20 07:31 Blood Culture - Preliminary Blood No Growth after 24 hours Assessment and Plan Assessment: Acute COVID-19 infection with cough and fever. Acute urinary tract infection complicated with underlying chronic indwelling Pantoja catheter. Malfunction PEG tube. resolved now. Abdominal distention rule out obstruction. Developmental disorder and neuromuscular dysfunction Chronic dysphagia on PEG tube feeding Chronic urinary retention Hypothyroidism Chronic kidney disease stage III Seizure disorder on Keppra DVT prophylaxis with Lovenox 40 mg subcu daily Plan: Patient will be continued on gentle IV hydration with normal saline and continue with antibiotics in the form of ceftriaxone and follow-up urine culture reports. Continue with levothyroxine and follow-up closely. Currently patient is oxygenating well on room air. Pulmonary is on board. Further recommendations based on the clinical course. Prognosis guarded at this time. Time with Patient: Greater than 30
--- NOTE | 2020-01-24 23:43 | P.PN ---
Subjective Progress Note Date: 01/24/20 Principal diagnosis: Acute COVID-19 infection with cough and fever. UTI Patient is a 64-year-old female with a known history of developmental disorder and neuromuscular dysfunction, dysphagia status post PEG tube placement, urinary retention and chronic indwelling Pantoja catheter and bedridden, history of DVT and seizure disorder, hypothyroidism was sent to ER with complaints of cough and fever for the past 1 to 2 days. T-max was 100.1 on admission. Patient was tested positive at [facility] and was transferred to ER for further management. Chest x-ray showed chronic changes and mild cardiomegaly without acute pulmonary process EKG showed normal sinus rhythm Abdominal x-ray was done due to distention showed gastrostomy tube appears to be in good position in the stomach. Limited exam. Laboratory data showed absolute lymphocyte counts 0.86, BUN 33 and creatinine 1.22 LDH 576, ferritin 66.6, pro calcitonin 0.13 Urinalysis showed cloudy with large leukocyte esterase with RBCs and WBCs. 01/23/2020 Patient is currently lying in the bed comfortably. T-max is 99.1. Blood cultures and urine cultures have been negative so far. Abdominal x-ray showed gastrostomy tube appears to be in good position in the stomach. General surgery recommends no intervention at this time. Patient is being continued on antibiotics in the form of ceftriaxone and follow- up urine culture report. Continue with Lovenox 90 gentle IV hydration. Patient cannot provide any history at baseline. 01/24/2020 Patient is currently lying in the bed awake alert and could not provide history at baseline. Patient is nonverbal. Does not appear to be in any discomfort. Tube feeding was restarted. Otherwise patient was febrile yesterday evening with T-max of 101. Currently on room air at 94% oxygen saturation. Urine cultures growing Pseudomonas aeruginosa and Zeferino. Wound cultures showed staph aureus. Patient was started on ceftazidime as per urine cultures. Continued on gentle IV hydration. Pulmonary and general surgery is on board. Current medications reviewed. Objective - Vital Signs Vital signs: Vital Signs Temp 99.4 F 01/24/20 19:36 Pulse 83 01/24/20 19:44 Resp 18 01/24/20 19:44 BP 148/96 01/24/20 19:36 Pulse Ox 98 01/24/20 19:36 Intake & Output 01/24/20 01/24/20 01/25/20 06:59 18:59 06:59 Output Total 400 500 Balance -400 -500 Weight 85.5 kg 85.5 kg Output: Urine 400 500 Uretheral (Pantoja) 500 Other: Voiding Method Indwelling Catheter Indwelling Catheter Indwelling Catheter # Bowel Movements 1 - Exam PHYSICAL EXAMINATION: Patient is lying in the bed comfortably, no acute distress, awake alert but not oriented.. HEENT: Normocephalic. Neck is supple. Pupils reactive. Nostrils clear. Oral cavity is moist. Ears reveal no drainage. Neck reveals no JVD, carotid bruits, or thyromegaly. CHEST EXAMINATION: Trachea is central. Symmetrical expansion. Bibasilar diminished air entry.Lung zheng clear to auscultation and percussion. CARDIAC: Normal S1, S2 with no gallops. No murmurs ABDOMEN: Soft. distended. Bowel sounds present. PEG tube site with yellowish drainage and surrounding excoriation. No organomegaly. No abdominal bruits. Extremities: trace edema. No clubbing or cyanosis Neurologically awake, alert and non verbal. able to move extremities while on b ed Skin: No rash or skin lesions. Psychiatric: Coperative. Musculoskeletal: No joint swelling or deformity. - Labs CBC & Chem 7: 01/22/20 07:31 01/22/20 07:31 Labs: Abnormal Lab Results - Last 24 Hours (Table) 01/22/20 Range/Units 07:31 Coronavirus (PCR) Detected A (Not Detected) Microbiology - Last 24 Hours (Table) 01/22/20 18:00 Gram Stain - Final Abdomen Wound Culture - Final Staphylococcus aureus 01/22/20 07:31 Blood Culture - Preliminary Blood No Growth after 48 hours 01/22/20 08:09 Urine Culture - Final Urine,Voided Pseudomonas aeruginosa Providencia stuartii Assessment and Plan Assessment: Acute COVID-19 infection with cough and fever. Acute urinary tract infection complicated with underlying chronic indwelling Pantoja catheter.Wound cultures growing Pseudomonas Malfunction PEG tube. resolved now. Abdominal distention rule out obstruction. Developmental disorder and neuromuscular dysfunction Chronic dysphagia on PEG tube feeding Chronic urinary retention Hypothyroidism Chronic kidney disease stage III Seizure disorder on Keppra DVT prophylaxis with Lovenox 40 mg subcu daily Plan: Patient will be continued on gentle IV hydration with normal saline and continue with antibiotics in the form of ceftriaxone and follow-up urine culture reports. Continue with levothyroxine and follow-up closely. Currently patient is oxygenating well on room air. Pulmonary is on board. Further recommendations based on the clinical course. Prognosis guarded at this time. Time with Patient: Greater than 30
[2020-01-25] MEDS: LEVOTHYROXINE 75 MCG TAB PEG/G-TUBE SCH (02:49)
[2020-01-25] MEDS: PANTOPRAZOLE SODIUM 40 MG GRANULE PKT PEG/G-TUBE SCH (05:34)
[2020-01-25 06:43] LABS: Basophils % (A) 1 %; Eosinophils % (A) 1 %; HCT 41.8 % (34.0-46.0); HGB 13.1 gm/dL (11.4-16.0); Hypochromasia Slight; Lymphocytes % (A) 41 %; MCH 27.8 pg (25.0-35.0); MCHC 31.3 g/dL (31.0-37.0); MCV 88.5 fL (80.0-100.0); Mean Platelet Volume 8.1; Monocytes # (A) 0.2 k/uL (0-1.0); Monocytes % (A) 7 %; Neutrophils # (A) 1.2 k/uL (1.3-7.7); Neutrophils % (A) 47 %; Platelet Count 174 k/uL (150-450); RBC 4.72 m/uL (3.80-5.40); RDW 15.6 % (11.5-15.5); WBC 2.5 k/uL (3.8-10.6)
[2020-01-25] MEDS: ASPIRIN 81 MG PEG/G-TUBE SCH (08:16)
[2020-01-25] MEDS: carBAMazepine 200 MG TAB PEG/G-TUBE SCH ×2 (08:16→16:18)
[2020-01-25] MEDS: levETIRAcetam ORAL SOLN 500 MG/5 ML CUP PEG/G-TUBE SCH ×2 (08:17→16:18)
[2020-01-25] MEDS: ENOXAPARIN 40 MG/0.4 ML SYRINGE SQ SCH (08:17)
[2020-01-25 08:50] LABS: African American GFR (CKD) 58 (>60 ml/min/1.73 sqM); Anion Gap 7 mmol/L; Blood Urea Nitrogen 25 mg/dL (7-17); Calcium 8.2 mg/dL (8.4-10.2); Carbon Dioxide 22 mmol/L (22-30); Chloride 116 mmol/L (98-107); Glucose 115 mg/dL (74-99); Non-African American GFR(CKD) 50 (>60 ml/min/1.73 sqM); Potassium 4.9 mmol/L (3.5-5.1); Sodium 145 mmol/L (137-145)
[2020-01-25] MEDS: FLUTICASONE 50MCG/SPRAY NASAL 16GM EA NOSTRIL SCH (11:55)
--- NOTE | 2020-01-25 12:45 | P.PN ---
Subjective Progress Note Date: 01/25/20 Principal diagnosis: Acute CoVID 19 infection 64-year-old female patient, nonverbal due to chronic neurologic impairment , resides at [facility] and the patient was experiencing some increased cough and fever. Based on several other residents being covid positive, the patient was checked and the rapid testing came back positive and the patient was transferred to our facility for further care. The patient obviously is bedbound. She received enteral feeding for incision support. She has a chronic indwelling Pantoja catheter. She cannot volunteer any history. Time of my evaluation, the patient was on room air oxygen with a pulse is 95%. Chest x-ray was showing no acute pulmonary infiltrate. Parvin presents for point. The patient has a slight lymphopenia with and lymphocyte count of 0.86. D-dimer is 0.45. LFTs were normal. The CRP was at 37.6. Lactic acid is at 1.2. The pro-calcitonin level is at 0.1. Urinalysis showing +1 protein, 57 WBC with clumps. The patient is seen today 01/23/2020 in follow-up on the regular medical floor. She is currently resting comfortably in bed. Awake and alert in no acute distress. Maintaining O2 saturations in the low 90s on room air. Temperature 99.1. Blood culture reveals no growth. Urine culture pending. Abdominal wound culture pending. Abdominal x-ray revealed gastrostomy tube in good position in the stomach. She is currently on ceftriaxone, Lovenox. On 01/24/2020 patient seen in follow-up on selective care unit. She is awake and alert, much more awake on today's evaluation, and she is able to answer some simple questions. Appears to be in no acute distress, room air pulse ox is 96%, hemodynamically stable, she's been afebrile today, her last episode of fever was yesterday evening with a temp of 101 Fahrenheit. Her Covid 19 PCR came back positive. Her urine culture showed pseudomonas aeruginosa and Providencia STuartii, . Ceftriaxone switch the patient to Fortaz. Remains on IV hydration with 0.9 normal saline at 50 ML per hour. Breathing seems to be comfortable, no cough or congestion, productive chest pain. Room air pulse ox is 96% The patient is seen today 01/25/2020 in follow-up on the regular medical floor. She is currently resting comfortably in bed. Awake and alert in no acute distress. Maintaining O2 saturation in the mid 90s on room air. She's been afebrile. Hemodynamically stable. Urine culture positive for pseudomonas and Providencia stuartii, abdominal wound positive for MSSA. White count 2.5. Hemoglobin 13.1. Sodium 145. Potassium 4.9. Creatinine 1.16. Continue ceftazidim. Objective - Vital Signs Vital signs: Vital Signs Temp 98.2 F 01/25/20 06:57 Pulse 82 01/25/20 06:57 Resp 17 01/25/20 06:57 BP 138/67 01/25/20 06:57 Pulse Ox 95 01/25/20 06:57 Intake & Output 01/24/20 01/25/20 01/25/20 18:59 06:59 18:59 Intake Total 400 Output Total 500 600 Balance -500 -200 Weight 85.5 kg 90.5 kg Intake: Intake, IV Titration 400 Amount Sodium Chloride 0.9% 1, 400 000 ml @ 50 mls/hr IV . Q20H [facility] Rx#:[id number] Output: Urine 500 600 Uretheral (Pantoja) 500 Other: Voiding Method Indwelling Catheter Indwelling Catheter Indwelling Catheter # Bowel Movements 1 - Exam A 64-year-old female patient appeared well nourished and normally developed. On room air with O2 saturations at 95%. Vital signs as documented. Head exam is unremarkable. No scleral icterus or corneal arcus noted. Neck is without jugular venous distension, thyromegaly, or carotid bruits. Carotid upstrokes are brisk bilaterally. Lungs are clear to auscultation and percussion. Cardiac exam reveals the PMI to be normally sized and situated. Rhythm is regular. First and second heart sounds normal. No murmurs, rubs or gallops. Abdominal exam reveals normal bowel sounds, no masses, no organomegaly and no aortic enlargement. PEG tube site is dry clean and intact. Extremities are nonedematous and both femoral and pedal pulses are normal. Examination of the skin revealed no evidence of significant rashes, suspicious appearing nevi or other concerning lesions. - Labs CBC & Chem 7: 01/25/20 05:53 01/25/20 05:53 Labs: Abnormal Lab Results - Last 24 Hours (Table) 01/22/20 01/25/20 01/25/20 Range/Units 07:31 05:53 05:53 WBC 2.5 L (3.8-10.6) k/uL RDW 15.6 H (11.5-15.5) % Neutrophils # 1.2 L (1.3-7.7) k/uL Chloride 116 H (98-107) mmol/L BUN 25 H (7-17) mg/dL Creatinine 1.16 H (0.52-1.04) mg/dL Glucose 115 H (74-99) mg/dL Calcium 8.2 L (8.4-10.2) mg/dL Coronavirus (PCR) Detected A (Not Detected) Microbiology - Last 24 Hours (Table) 01/22/20 07:31 Blood Culture - Preliminary Blood No Growth after 72 hours 01/22/20 18:00 Gram Stain - Final Abdomen Wound Culture - Final Staphylococcus aureus 01/22/20 08:09 Urine Culture - Final Urine,Voided Pseudomonas aeruginosa Providencia stuartii Assessment and Plan Assessment: 1 COVID 19 infection, with secondary cough and fever. The patient has a signs of respiratory insufficiency and the patient has no signs of active pneumonia and the patient is maintaining a pulse ox of 95% on room air 2 urinary tract infection secondary to pseudomonas aeruginosa and Providencia stuartii, the patient has a chronic indwelling Pantoja catheter for chronic urina ry retention, currently on ceftazidime 3 developmental disorder 4 history of chronic seizures 5 neuromuscular dysfunction secondary to above 6 dysphagia, chronic and the patient receives enteral feeding for nutritional support 7 chronic urinary retention and the patient is a chronic indwelling Pantoja catheter. 8 Questionable history of DVT and pulmonary embolism 9 chronic kidney disease 10 hypothyroidism Plan The patient was seen and evaluated by Dr. Prabhjot Gilliland for discharge from the pulmonary standpoint Continue current medications I, the cosigning physician, performed a history & physical examination of the patient. Lungs sounds are clear. Maintaining good O2 saturations in the 90s on room air. I discussed the assessment and plan of care with my nurse practitioner, Tiffani Corea. I attest to the above note as dictated by her.
[2020-01-25] MEDS: SODIUM CHLORIDE 0.9% 1,000 ML IV SCH (16:23)
[2020-01-26] MEDS: LEVOTHYROXINE 75 MCG TAB PEG/G-TUBE SCH (04:56)
[2020-01-26] MEDS: PANTOPRAZOLE SODIUM 40 MG GRANULE PKT PEG/G-TUBE SCH (04:56)
[2020-01-26] MEDS: levETIRAcetam ORAL SOLN 500 MG/5 ML CUP PEG/G-TUBE SCH ×2 (07:28→16:28)
[2020-01-26] MEDS: ASPIRIN 81 MG PEG/G-TUBE SCH (07:29)
[2020-01-26] MEDS: ENOXAPARIN 40 MG/0.4 ML SYRINGE SQ SCH (07:29)
[2020-01-26] MEDS: carBAMazepine 200 MG TAB PEG/G-TUBE SCH ×2 (07:29→16:29)
[2020-01-26 08:46] LABS: Basophils % (A) 1 %; Eosinophils # (A) 0.1 k/uL (0-0.7); Eosinophils % (A) 2 %; HCT 41.1 % (34.0-46.0); HGB 12.6 gm/dL (11.4-16.0); Hypochromasia Moderate; Lymphocytes # (A) 1.1 k/uL (1.0-4.8); Lymphocytes % (A) 35 %; MCH 27.3 pg (25.0-35.0); MCHC 30.7 g/dL (31.0-37.0); MCV 88.8 fL (80.0-100.0); Mean Platelet Volume 8.1; Monocytes # (A) 0.2 k/uL (0-1.0); Monocytes % (A) 6 %; Neutrophils # (A) 1.6 k/uL (1.3-7.7); Neutrophils % (A) 55 %; Platelet Count 155 k/uL (150-450); RBC 4.62 m/uL (3.80-5.40); RDW 15.7 % (11.5-15.5)
[2020-01-26 09:03] LABS: African American GFR (CKD) 61 (>60 ml/min/1.73 sqM); Anion Gap 7 mmol/L; Blood Urea Nitrogen 26 mg/dL (7-17); Calcium 8.2 mg/dL (8.4-10.2); Carbon Dioxide 24 mmol/L (22-30); Chloride 117 mmol/L (98-107); Glucose 128 mg/dL (74-99); Non-African American GFR(CKD) 53 (>60 ml/min/1.73 sqM); Potassium 4.7 mmol/L (3.5-5.1); Sodium 148 mmol/L (137-145)
--- NOTE | 2020-01-26 12:24 | P.PN ---
Subjective Progress Note Date: 01/26/20 Principal diagnosis: Acute CoVID 19 infection 64-year-old female patient, nonverbal due to chronic neurologic impairment , resides at [facility] and the patient was experiencing some increased cough and fever. Based on several other residents being covid positive, the patient was checked and the rapid testing came back positive and the patient was transferred to our facility for further care. The patient obviously is bedbound. She received enteral feeding for incision support. She has a chronic indwelling Pantoja catheter. She cannot volunteer any history. Time of my evaluation, the patient was on room air oxygen with a pulse is 95%. Chest x-ray was showing no acute pulmonary infiltrate. Parvin presents for point. The patient has a slight lymphopenia with and lymphocyte count of 0.86. D-dimer is 0.45. LFTs were normal. The CRP was at 37.6. Lactic acid is at 1.2. The pro-calcitonin level is at 0.1. Urinalysis showing +1 protein, 57 WBC with clumps. The patient is seen today 01/23/2020 in follow-up on the regular medical floor. She is currently resting comfortably in bed. Awake and alert in no acute distress. Maintaining O2 saturations in the low 90s on room air. Temperature 99.1. Blood culture reveals no growth. Urine culture pending. Abdominal wound culture pending. Abdominal x-ray revealed gastrostomy tube in good position in the stomach. She is currently on ceftriaxone, Lovenox. On 01/24/2020 patient seen in follow-up on selective care unit. She is awake and alert, much more awake on today's evaluation, and she is able to answer some simple questions. Appears to be in no acute distress, room air pulse ox is 96%, hemodynamically stable, she's been afebrile today, her last episode of fever was yesterday evening with a temp of 101 Fahrenheit. Her Covid 19 PCR came back positive. Her urine culture showed pseudomonas aeruginosa and Providencia STuartii, . Ceftriaxone switch the patient to Fortaz. Remains on IV hydration with 0.9 normal saline at 50 ML per hour. Breathing seems to be comfortable, no cough or congestion, productive chest pain. Room air pulse ox is 96% The patient is seen today 01/25/2020 in follow-up on the regular medical floor. She is currently resting comfortably in bed. Awake and alert in no acute distress. Maintaining O2 saturation in the mid 90s on room air. She's been afebrile. Hemodynamically stable. Urine culture positive for pseudomonas and Providencia stuartii, abdominal wound positive for MSSA. White count 2.5. Hemoglobin 13.1. Sodium 145. Potassium 4.9. Creatinine 1.16. Continue ceftazidim. The patient is seen today 01/26/2020 follow-up on the regular medical floor. She is awake and alert. Resting comfortably in bed. Maintaining O2 saturations in the 90s on room air. She remains afebrile. Hemodynamically stable. Urine culture positive for pseudomonas aeruginosa and Providencia stuartii, wound around the PEG tube exit site is positive for methicillin sensitive taphylococcus aureus. White count 3.0. Hemoglobin 12.6. Sodium 148. Potassium 4.7. Crit and 1.10. He remains on ceftaz edema. Objective - Vital Signs Vital signs: Vital Signs Temp 97.9 F 01/26/20 06:48 Pulse 79 01/26/20 06:48 Resp 16 01/26/20 06:48 BP 133/71 01/26/20 06:48 Pulse Ox 94 L 01/26/20 06:48 Intake & Output 01/25/20 01/26/20 01/26/20 19:59 06:59 18:59 Output Total Balance Weight Output: Urine Other: Voiding Method Indwelling Catheter - Exam A 64-year-old female patient appeared well nourished and normally developed. On room air with O2 saturations at 94%. Vital signs as documented. Head exam is unremarkable. No scleral icterus or corneal arcus noted. Neck is without jugular venous distension, thyromegaly, or carotid bruits. Carotid upstrokes are brisk bilaterally. Lungs are clear to auscultation and percussion. Cardiac exam reveals the PMI to be normally sized and situated. Rhythm is regular. First and second heart sounds normal. No murmurs, rubs or gallops. Abdominal exam reveals normal bowel sounds, no masses, no organomegaly and no aortic enlargement. PEG tube site is dry clean and intact. Extremities are nonedematous and both femoral and pedal pulses are normal. Examination of the skin revealed no evidence of significant rashes, suspicious appearing nevi or other concerning lesions. - Labs CBC & Chem 7: 01/26/20 08:14 01/26/20 08:14 Labs: Abnormal Lab Results - Last 24 Hours (Table) 01/26/20 01/26/20 Range/Units 08:14 08:14 WBC 3.0 L (3.8-10.6) k/uL MCHC 30.7 L (31.0-37.0) g/dL RDW 15.7 H (11.5-15.5) % Sodium 148 H (137-145) mmol/L Chloride 117 H (98-107) mmol/L BUN 26 H (7-17) mg/dL Creatinine 1.10 H (0.52-1.04) mg/dL Glucose 128 H (74-99) mg/dL Calcium 8.2 L (8.4-10.2) mg/dL Microbiology - Last 24 Hours (Table) 01/22/20 07:31 Blood Culture - Preliminary Blood No Growth after 96 hours Assessment and Plan Assessment: 1 COVID 19 infection, with secondary cough and fever. The patient has no signs of respiratory insufficiency and the patient has no signs of active pneumonia and the patient is maintaining a pulse ox of 95% on room air 2 urinary tract infection secondary to pseudomonas aeruginosa and Providencia stuartii, the patient has a chronic indwelling Pantoja catheter for chronic urinary retention, currently on ceftazidime 3 developmental disorder 4 history of chronic seizures 5 neuromuscular dysfunction secondary to above 6 dysphagia, chronic and the patient receives enteral feeding for nutritional support via a PEG tube. Wound is positive for MSSA 7 chronic urinary retention and the patient is a chronic indwelling Pantoja catheter. 8 Questionable history of DVT and pulmonary embolism 9 chronic kidney disease 10 hypothyroidism Plan The patient was seen and evaluated by Dr. Rick Labs reviewed Continue current medications Stable for discharge from the pulmonary standpoint, on room air I, the cosigning physician, performed a history & physical examination of the patient. Lungs sounds are clear. Maintaining good O2 saturations in the 90s on room air. I discussed the assessment and plan of care with my nurse practitioner, Tiffani Corea. I attest to the above note as dictated by her.
[2020-01-26] MEDS: FLUTICASONE 50MCG/SPRAY NASAL 16GM EA NOSTRIL SCH (12:32)
[2020-01-26] MEDS: SODIUM CHLORIDE 0.9% 1,000 ML IV SCH (12:33)
--- NOTE | 2020-01-27 00:04 | P.PN ---
Subjective Progress Note Date: 01/25/20 Principal diagnosis: Acute COVID-19 infection with cough and fever. UTI Patient is a 64-year-old female with a known history of developmental disorder and neuromuscular dysfunction, dysphagia status post PEG tube placement, urinary retention and chronic indwelling Pantoja catheter and bedridden, history of DVT and seizure disorder, hypothyroidism was sent to ER with complaints of cough and fever for the past 1 to 2 days. T-max was 100.1 on admission. Patient was tested positive at [facility] and was transferred to ER for further management. Chest x-ray showed chronic changes and mild cardiomegaly without acute pulmonary process EKG showed normal sinus rhythm Abdominal x-ray was done due to distention showed gastrostomy tube appears to be in good position in the stomach. Limited exam. Laboratory data showed absolute lymphocyte counts 0.86, BUN 33 and creatinine 1.22 LDH 576, ferritin 66.6, pro calcitonin 0.13 Urinalysis showed cloudy with large leukocyte esterase with RBCs and WBCs. 01/23/2020 Patient is currently lying in the bed comfortably. T-max is 99.1. Blood cultures and urine cultures have been negative so far. Abdominal x-ray showed gastrostomy tube appears to be in good position in the stomach. General surgery recommends no intervention at this time. Patient is being continued on antibiotics in the form of ceftriaxone and follow- up urine culture report. Continue with Lovenox 90 gentle IV hydration. Patient cannot provide any history at baseline. 01/24/2020 Patient is currently lying in the bed awake alert and could not provide history at baseline. Patient is nonverbal. Does not appear to be in any discomfort. Tube feeding was restarted. Otherwise patient was febrile yesterday evening with T-max of 101. Currently on room air at 94% oxygen saturation. Urine cultures growing Pseudomonas aeruginosa and Zeferino. Wound cultures showed staph aureus. Patient was started on ceftazidime as per urine cultures. Continued on gentle IV hydration. Pulmonary and general surgery is on board. 01/25/2020 Patient is currently resting in the bed comfortably. Awake alert but could not provide any history. No acute distress. Saturating at 90% on room air. Patient is being continued on antibiotics in the form of ceftazidime as per urine culture showing Pseudomonas and providentia. Patient has been afebrile. No nausea vomiting or diarrhea. Denies any abdominal pain. Current medications reviewed. Objective - Vital Signs Vital signs: Vital Signs Temp 98 F 01/25/20 14:43 Pulse 81 01/25/20 14:43 Resp 17 01/25/20 14:43 BP 138/66 01/25/20 14:43 Pulse Ox 96 01/25/20 14:43 Intake & Output 01/25/20 01/25/20 01/26/20 06:59 18:59 05:59 Intake Total 400 Output Total 600 850 Balance -200 -850 Weight 90.5 kg Intake: Intake, IV Titration 400 Amount Sodium Chloride 0.9% 1, 400 000 ml @ 50 mls/hr IV . Q20H REPLACED BY [facility] Rx#:[id number] Output: Urine 600 850 Other: Voiding Method Indwelling Catheter Indwelling Catheter - Exam PHYSICAL EXAMINATION: Patient is lying in the bed comfortably, no acute distress, awake alert but not oriented.. HEENT: Normocephalic. Neck is supple. Pupils reactive. Nostrils clear. Oral c avity is moist. Ears reveal no drainage. Neck reveals no JVD, carotid bruits, or thyromegaly. CHEST EXAMINATION: Trachea is central. Symmetrical expansion. Bibasilar diminished air entry.Lung zheng clear to auscultation and percussion. CARDIAC: Normal S1, S2 with no gallops. No murmurs ABDOMEN: Soft. distended. Bowel sounds present. PEG tube site with yellowish drainage and surrounding excoriation. No organomegaly. No abdominal bruits. Extremities: trace edema. No clubbing or cyanosis Neurologically awake, alert and non verbal. able to move extremities while on bed Skin: No rash or skin lesions. Psychiatric: Coperative. Musculoskeletal: No joint swelling or deformity. - Labs CBC & Chem 7: 01/26/20 08:14 01/26/20 08:14 Labs: Abnormal Lab Results - Last 24 Hours (Table) 01/25/20 01/25/20 Range/Units 05:53 05:53 WBC 2.5 L (3.8-10.6) k/uL RDW 15.6 H (11.5-15.5) % Neutrophils # 1.2 L (1.3-7.7) k/uL Chloride 116 H (98-107) mmol/L BUN 25 H (7-17) mg/dL Creatinine 1.16 H (0.52-1.04) mg/dL Glucose 115 H (74-99) mg/dL Calcium 8.2 L (8.4-10.2) mg/dL Microbiology - Last 24 Hours (Table) 01/22/20 07:31 Blood Culture - Preliminary Blood No Growth after 72 hours Assessment and Plan Assessment: Acute COVID-19 infection with cough and fever. Acute urinary tract infection complicated with underlying chronic indwelling Pantoja catheter. cultures growing Pseudomonas Malfunction PEG tube. resolved now. Abdominal distention rule out obstruction. Developmental disorder and neuromuscular dysfunction Chronic dysphagia on PEG tube feeding Chronic urinary retention Hypothyroidism Chronic kidney disease stage III Seizure disorder on Keppra DVT prophylaxis with Lovenox 40 mg subcu daily Plan: Patient will be continued on gentle IV hydration with normal saline and continue with antibiotics in the form of Ceftazidime as per urine culture report.. Continue with levothyroxine and follow-up closely. Currently patient is oxygenating well on room air. Pulmonary is on board. Further recommendations based on the clinical course. Prognosis guarded at this time. Time with Patient: Greater than 30
--- NOTE | 2020-01-27 00:07 | P.PN ---
Subjective Progress Note Date: 01/26/20 Principal diagnosis: Acute COVID-19 infection with cough and fever. UTI Patient is a 64-year-old female with a known history of developmental disorder and neuromuscular dysfunction, dysphagia status post PEG tube placement, urinary retention and chronic indwelling Pantoja catheter and bedridden, history of DVT and seizure disorder, hypothyroidism was sent to ER with complaints of cough and fever for the past 1 to 2 days. T-max was 100.1 on admission. Patient was tested positive at [facility] and was transferred to ER for further management. Chest x-ray showed chronic changes and mild cardiomegaly without acute pulmonary process EKG showed normal sinus rhythm Abdominal x-ray was done due to distention showed gastrostomy tube appears to be in good position in the stomach. Limited exam. Laboratory data showed absolute lymphocyte counts 0.86, BUN 33 and creatinine 1.22 LDH 576, ferritin 66.6, pro calcitonin 0.13 Urinalysis showed cloudy with large leukocyte esterase with RBCs and WBCs. 01/23/2020 Patient is currently lying in the bed comfortably. T-max is 99.1. Blood cultures and urine cultures have been negative so far. Abdominal x-ray showed gastrostomy tube appears to be in good position in the stomach. General surgery recommends no intervention at this time. Patient is being continued on antibiotics in the form of ceftriaxone and follow- up urine culture report. Continue with Lovenox 90 gentle IV hydration. Patient cannot provide any history at baseline. 01/24/2020 Patient is currently lying in the bed awake alert and could not provide history at baseline. Patient is nonverbal. Does not appear to be in any discomfort. Tube feeding was restarted. Otherwise patient was febrile yesterday evening with T-max of 101. Currently on room air at 94% oxygen saturation. Urine cultures growing Pseudomonas aeruginosa and Zeferino. Wound cultures showed staph aureus. Patient was started on ceftazidime as per urine cultures. Continued on gentle IV hydration. Pulmonary and general surgery is on board. 01/25/2020 Patient is currently resting in the bed comfortably. Awake alert but could not provide any history. No acute distress. Saturating at 90% on room air. Patient is being continued on antibiotics in the form of ceftazidime as per urine culture showing Pseudomonas and providentia. Patient has been afebrile. No nausea vomiting or diarrhea. Denies any abdominal pain. 01/26/2020 Patient is currently resting in the bed comfortably. No chest pain worsening shortness of breath. Saturating well on room air. Awake alert and cannot provide any history at baseline. Laboratory data showed sodium is 148. Patient is on tube feeding. Tolerating well. Pulmonary is following. Follow-up repeat labs tomorrow and anticipate discharge back to rehab. Current medications reviewed. Objective - Vital Signs Vital signs: Vital Signs Temp 99.4 F 01/26/20 20:05 Pulse 77 01/26/20 20:05 Resp 16 01/26/20 20:05 BP 155/70 01/26/20 20:05 Pulse Ox 96 01/26/20 20:05 Intake & Output 01/26/20 01/26/20 01/27/20 06:59 18:59 06:59 Output Total Balance Weight Output: Urine Other: Voiding Method Indwelling Catheter Indwelling Catheter - Exam PHYSICAL EXAMINATION: Patient is lying in the bed comfortably, no acute distress, awake alert but not oriented.. HEENT: Normocephalic. Neck is supple. Pupils reactive. Nostrils clear. Oral cavity is moist. Ears reveal no drainage. Neck reveals no JVD, carotid bruits, or thyromegaly. CHEST EXAMINATION: Trachea is central. Symmetrical expansion. Bibasilar diminished air entry.Lung zheng clear to auscultation and percussion. CARDIAC: Normal S1, S2 with no gallops. No murmurs ABDOMEN: Soft. distended. Bowel sounds present. PEG tube site with yellowish drainage and surrounding excoriation. No organomegaly. No abdominal bruits. Extremities: trace edema. No clubbing or cyanosis Neurologically awake, alert and non verbal. able to move extremities while on bed Skin: No rash or skin lesions. Psychiatric: Coperative. Musculoskeletal: No joint swelling or deformity. - Labs CBC & Chem 7: 01/26/20 08:14 01/26/20 08:14 Labs: Abnormal Lab Results - Last 24 Hours (Table) 01/26/20 01/26/20 Range/Units 08:14 08:14 WBC 3.0 L (3.8-10.6) k/uL MCHC 30.7 L (31.0-37.0) g/dL RDW 15.7 H (11.5-15.5) % Sodium 148 H (137-145) mmol/L Chloride 117 H (98-107) mmol/L BUN 26 H (7-17) mg/dL Creatinine 1.10 H (0.52-1.04) mg/dL Glucose 128 H (74-99) mg/dL Calcium 8.2 L (8.4-10.2) mg/dL Microbiology - Last 24 Hours (Table) 01/22/20 07:31 Blood Culture - Preliminary Blood No Growth after 96 hours Assessment and Plan Assessment: Acute COVID-19 infection with cough and fever. afebrile now. Acute urinary tract infection complicated with underlying chronic indwelling Pantoja catheter. cultures growing Pseudomonas and providentia Malfunction PEG tube. resolved now. Abdominal distention rule out obstruction. Developmental disorder and neuromuscular dysfunction Chronic dysphagia on PEG tube feeding Chronic urinary retention Hypothyroidism Chronic kidney disease stage III Seizure disorder on Keppra DVT prophylaxis with Lovenox 40 mg subcu daily Plan: Patient will be continued on gentle IV hydration with 0.45 saline and continue with antibiotics in the form of Ceftazidime as per urine culture report.. Continue with levothyroxine and follow-up closely. Currently patient is oxygenating well on room air. Pulmonary is on board. Further recommendations based on the clinical course. Prognosis guarded at this time. Time with Patient: Greater than 30
[2020-01-27] MEDS: SODIUM CHLORIDE 0.45% 1,000 ML IV SCH ×2 (00:59→13:30)
[2020-01-27 01:27] VITALS: RESP 18
[2020-01-27] MEDS: PANTOPRAZOLE SODIUM 40 MG GRANULE PKT PEG/G-TUBE SCH (04:13)
[2020-01-27] MEDS: LEVOTHYROXINE 75 MCG TAB PEG/G-TUBE SCH (04:13)
[2020-01-27 06:37] LABS: Basophils # (A) 0.1 k/uL (0-0.2); Basophils % (A) 3 %; Eosinophils # (A) 0.1 k/uL (0-0.7); Eosinophils % (A) 2 %; HCT 40.8 % (34.0-46.0); HGB 12.8 gm/dL (11.4-16.0); Hypochromasia Moderate; Lymphocytes % (A) 38 %; MCHC 31.4 g/dL (31.0-37.0); MCV 89.1 fL (80.0-100.0); Mean Platelet Volume 8.4; Monocytes # (A) 0.1 k/uL (0-1.0); Monocytes % (A) 6 %; Neutrophils # (A) 1.2 k/uL (1.3-7.7); Neutrophils % (A) 48 %; Platelet Count 133 k/uL (150-450); RBC 4.58 m/uL (3.80-5.40); RDW 15.6 % (11.5-15.5); WBC 2.5 k/uL (3.8-10.6)
[2020-01-27] MEDS: ASPIRIN 81 MG PEG/G-TUBE SCH (07:23)
[2020-01-27] MEDS: levETIRAcetam ORAL SOLN 500 MG/5 ML CUP PEG/G-TUBE SCH (07:23)
[2020-01-27] MEDS: ENOXAPARIN 40 MG/0.4 ML SYRINGE SQ SCH (07:23)
[2020-01-27] MEDS: carBAMazepine 200 MG TAB PEG/G-TUBE SCH (07:23)
[2020-01-27] MEDS: FLUTICASONE 50MCG/SPRAY NASAL 16GM EA NOSTRIL SCH (07:32)
[2020-01-27 09:25] LABS: African American GFR (CKD) 61.4 (60.0-200.0); Anion Gap 7.3 mmol/L (4.00-12.00); BUN/Creat Ratio 23.64 Ratio (12.00-20.00); Calcium 8.2 mg/dL (8.7-10.3); Carbon Dioxide 22.7 mmol/L (21.6-31.8); Potassium 5.3 mmol/L (3.5-5.5)
--- NOTE | 2020-01-27 14:18 | P.PN ---
Subjective Progress Note Date: 01/27/20 Principal diagnosis: Acute Covid 19 infection 64-year-old female patient, nonverbal due to chronic neurologic impairment , resides at [facility] and the patient was experiencing some increased cough and fever. Based on several other residents being covid positive, the patient was checked and the rapid testing came back positive and the patient was transferred to our facility for further care. The patient obviously is bedbound. She received enteral feeding for incision support. She has a chronic indwelling Pantoja catheter. She cannot volunteer any history. Time of my evaluation, the patient was on room air oxygen with a pulse is 95%. Chest x-ray was showing no acute pulmonary infiltrate. Parvin presents for point. The patient has a slight lymphopenia with and lymphocyte count of 0.86. D-dimer is 0.45. LFTs were normal. The CRP was at 37.6. Lactic acid is at 1.2. The pro-calcitonin level is at 0.1. Urinalysis showing +1 protein, 57 WBC with clumps. The patient is seen today 01/23/2020 in follow-up on the regular medical floor. She is currently resting comfortably in bed. Awake and alert in no acute distress. Maintaining O2 saturations in the low 90s on room air. Temperature 99.1. Blood culture reveals no growth. Urine culture pending. Abdominal wound culture pending. Abdominal x-ray revealed gastrostomy tube in good position in the stomach. She is currently on ceftriaxone, Lovenox. On 01/24/2020 patient seen in follow-up on selective care unit. She is awake and alert, much more awake on today's evaluation, and she is able to answer some simple questions. Appears to be in no acute distress, room air pulse ox is 96%, hemodynamically stable, she's been afebrile today, her last episode of fever was yesterday evening with a temp of 101 Fahrenheit. Her Covid 19 PCR came back positive. Her urine culture showed pseudomonas aeruginosa and Providencia STuartii, . Ceftriaxone switch the patient to Fortaz. Remains on IV hydration with 0.9 normal saline at 50 ML per hour. Breathing seems to be comfortable, no cough or congestion, productive chest pain. Room air pulse ox is 96% On 01/27/2020 patient seen in follow-up on general medical surgical floor, she is resting in bed, in no acute distress, she is on room air pulse ox of 95-97%, she's been afebrile, respirations are nonlabored, patient is a poor historian, related to underlying severe neurocognitive impairment, but appears to be in no acute distress, afebrile in the last 48 hours. Remains on Fortaz for MSSA wound infection on the abdomen, and urine culture positive for pseudomonas and Prudential. His labs have been reviewed, showing improvement until, 2.5, hemoglobin is 12.8, sodium is 147, potassium is 5.3, chloride is 117, BUN of 26 creatinine is 1.1. No acute events overnight. Patient is tolerating tube feedings. Objective - Vital Signs Vital signs: Vital Signs Temp 97.6 F 01/27/20 07:00 Pulse 76 01/27/20 07:00 Resp 18 01/27/20 01:25 BP 146/79 01/27/20 07:00 Pulse Ox 95 01/27/20 07:00 Intake & Output 01/26/20 01/27/20 01/27/20 18:59 06:59 18:59 Intake Total 262 Output Total 650 Balance -650 262 Weight 95.5 kg Intake: Tube Feeding 262 Output: Urine 650 Other: Voiding Method Indwelling Catheter Indwelling Catheter Indwelling Catheter # Bowel Movements 1 - Exam GENERAL EXAM: Alert, very pleasant, 64-year-old female on room air with pulse ox of 96%, comfortable in no apparent distress. HEAD: Normocephalic/atraumatic. EYES: Normal reaction of pupils, equal size. Conjunctiva pink, sclera white. NOSE: Clear with pink turbinates. THROAT: No erythema or exudates. NECK: No masses, no JVD, no thyroid enlargement, no adenopathy. CHEST: No chest wall deformity. Symmetrical expansion. LUNGS: Equal air entry with no crackles, wheeze, rhonchi or dullness. CVS: Regular rate and rhythm, normal S1 and S2, no gallops, no murmurs, no rubs ABDOMEN: Soft, nontender. No hepatosplenomegaly, normal bowel sounds, no guarding or rigidity. EXTREMITIES: No clubbing, no edema, no cyanosis, 2+ pulses and upper and lower extremities. MUSCULOSKELETAL: Muscle strength and tone normal. SPINE: No scoliosis or deformity SKIN: No rashes CENTRAL NERVOUS SYSTEM: Alert and oriented -3. No focal deficits, tone is normal in all 4 extremities. PSYCHIATRIC: Alert and oriented -3. Appropriate affect. Intact judgment and insight. - Labs CBC & Chem 7: 01/27/20 05:25 01/27/20 05:25 Labs: Abnormal Lab Results - Last 24 Hours (Table) 01/27/20 01/27/20 Range/Units 05:25 05:25 WBC 2.5 L (3.8-10.6) k/uL RDW 15.6 H (11.5-15.5) % Plt Count 133 L (150-450) k/uL Neutrophils # 1.2 L (1.3-7.7) k/uL Sodium 147 H (135-145) mmol/L Chloride 117 H (96-109) mmol/L Est GFR (CKD-EPI)NonAf 53.0 L (60.0-200.0) BUN/Creatinine Ratio 23.64 H (12.00-20.00) Ratio Calcium 8.2 L (8.7-10.3) mg/dL Microbiology - Last 24 Hours (Table) 01/22/20 07:31 Blood Culture - Preliminary Blood No Growth after 120 hours Assessment and Plan Plan: Assessment: 1 COVID 19 infection, with secondary cough and fever. The patient has a signs of respiratory insufficiency and the patient has no signs of active pneumonia and the patient is maintaining a pulse ox of 91% 2 acute UTI, the patient has a chronic indwelling Pantoja catheter for chronic urinary retention, with urine cultures positive for pseudomonas aeruginosa and Providencia STuartii 3 developmental disorder 4 history of chronic seizures 5 neuromuscular dysfunction secondary to above 6 dysphagia, chronic and the patient receives enteral feeding for nutritional support 7 chronic urinary retention and the patient is a chronic indwelling Pantoja catheter. 8 Questionable history of DVT and pulmonary embolism 9 chronic kidney disease 10 hypothyroidism Plan: Patient has been stable overnight, no acute events, no fever or chills, continue current antibiotics, continue GI and DVT prophylaxis, patient is tolerating tube feedings, from pulmonary perspective patient is stable for discharge to [address], [place] at [facility]. I performed a history & physical examination of the patient and discussed their management with my nurse practitioner, Nicole Belcher. I reviewed the nurse practitioner's note and agree with the documented findings and plan of care. Lung sounds are positive for diminished breath sounds. The findings and the impression was discussed with the patient. I attest to the documentation by the nurse practitioner. Time with Patient: Less than 30
[2020-01-27 14:36] VITALS: BMI 35.0
[2020-01-27 15:09] VITALS: BP 139/84; PULSE 85; TEMP 97.9
--- NOTE | 2020-01-27 15:15 | P.DS ---
Providers Date of admission: 01/22/20 09:06 Expected date of discharge: 01/27/20 Attending physician: Sosa Lopez Consults: 01/22/20 09:06 Consult Physician Routine Consulting Provider: Yang Rick Consult Reason/Comments: COVID-19 Do you want consulting provider notified?: Yes 01/22/20 17:48 Consult Physician Routine Consulting Provider: Rusty Denton Consult Reason/Comments: MALFUNCTIONING PEG TUBE Do you want consulting provider notified?: Yes Primary care physician: Andi Ivy Hospital Course: Discharge diagnosis Acute COVID-19 infection with cough and fever. afebrile now. Acute urinary tract infection complicated with underlying chronic indwelling Pantoja catheter. cultures growing Pseudomonas and providentia Malfunction PEG tube. resolved now. PEG tube site wound cultures growing MSSA Abdominal distention ruled out obstruction. Resolved now. Patient did have a bowel movement. Developmental disorder and neuromuscular dysfunction Chronic dysphagia on PEG tube feeding Chronic urinary retention Hypothyroidism Chronic kidney disease stage III Seizure disorder on Keppra DVT prophylaxis with Lovenox 40 mg subcu daily Hospital course Patient is a 64-year-old female with a known history of developmental disorder and neuromuscular dysfunction, dysphagia status post PEG tube placement, urinary retention and chronic indwelling Pantoja catheter and bedridden, history of DVT and seizure disorder, hypothyroidism was sent to ER with complaints of cough and fever for the past 1 to 2 days. T-max was 100.1 on admission. Patient was tested positive at [facility] and was transferred to ER for further management. Chest x-ray showed chronic changes and mild cardiomegaly without acute pulmonary process EKG showed normal sinus rhythm Abdominal x-ray was done due to distention showed gastrostomy tube appears to be in good position in the stomach. Limited exam. Laboratory data showed absolute lymphocyte counts 0.86, BUN 33 and creatinine 1.22 LDH 576, ferritin 66.6, pro calcitonin 0.13 Urinalysis showed cloudy with large leukocyte esterase with RBCs and WBCs. 01/23/2020 Patient is currently lying in the bed comfortably. T-max is 99.1. Blood cultures and urine cultures have been negative so far. Abdominal x-ray showed gastrostomy tube appears to be in good position in the stomach. General surgery recommends no intervention at this time. Patient is being continued on antibiotics in the form of ceftriaxone and follow- up urine culture report. Continue with Lovenox 90 gentle IV hydration. Patient cannot provide any history at baseline. 01/24/2020 Patient is currently lying in the bed awake alert and could not provide history at baseline. Patient is nonverbal. Does not appear to be in any discomfort. Tube feeding was restarted. Otherwise patient was febrile yesterday evening with T-max of 101. Currently on room air at 94% oxygen saturation. Urine cultures growing Pseudomonas aeruginosa and Zeferino. Wound cultures showed staph aureus. Patient was started on ceftazidime as per urine cultures. Continued on gentle IV hydration. Pulmonary and general surgery is on board. 01/25/2020 Patient is currently resting in the bed comfortably. Awake alert but could not provide any history. No acute distress. Saturating at 90% on room air. Patient is being continued on antibiotics in the form of ceftazidime as per urine culture showing Pseudomonas and providentia. Patient has been afebrile. No nausea vomiting or diarrhea. Denies any abdominal pain. 01/26/2020 Patient is currently resting in the bed comfortably. No chest pain worsening shortness of breath. Saturating well on room air. Awake alert and cannot provide any history at baseline. Laboratory data showed sodium is 148. Patient is on tube feeding. Tolerating well. Pulmonary is following. Follow-up repeat labs tomorrow and anticipate discharge back to rehab. 01/27/2020 Patient is currently resting in the bed comfortably. No acute distress. Patient is nonverbal and poor historian at baseline. Patient has been afebrile. Currently being continued on antibiotics in the form of ceftazidime for Pseudomonas and Providentia urinary tract infection. PEG tube site wound cultures growing MSSA. Complete antibiotic course with a ceftazidime. Laboratory data showed RBC 2.5, hemoglobin 12.8 and sodium 147 and potassium [id number] BUN 26 and creatinine 1.1. Patient is tolerating PEG tube feedings area Otherwise patient is stable to be discharged to extended care facility. PHYSICAL EXAMINATION: Patient is lying in the bed comfortably, no acute distress, awake alert but not oriented.. HEENT: Normocephalic. Neck is supple. Pupils reactive. Nostrils clear. Oral cavity is moist. Ears reveal no drainage. Neck reveals no JVD, carotid bruits, or thyromegaly. CHEST EXAMINATION: Trachea is central. Symmetrical expansion. Bibasilar diminished air entry.Lung zheng clear to auscultation and percussion. CARDIAC: Normal S1, S2 with no gallops. No murmurs ABDOMEN: Soft. distended. Bowel sounds present. PEG tube site with yellowish drainage and surrounding excoriation. No organomegaly. No abdominal bruits. Extremities: trace edema. No clubbing or cyanosis Neurologically awake, alert and non verbal. able to move extremities while on bed Skin: No rash or skin lesions. Psychiatric: Coperative. Musculoskeletal: No joint swelling or deformity. Vital Signs 01/27/20 15:00 Temperature 97.9 F Pulse Rate [ 85 Pulse Oximetery ] Blood Pressure 139/84 [Left Arm] O2 Sat by Pulse 93 L Oximetry Total time taken greater than 35 minutes including 18 minutes for counseling and coordination of care. Patient Condition at Discharge: Stable Plan - Discharge Summary Discharge Rx Participant: No New Discharge Prescriptions: New cefTAZidime [Fortaz] 1 gm IVPB Q12HR 3 Days #6 vial Continue Na Phos,M-B/Na Phos,Di-Ba [Fleet Adult] 133 ml PEG/G-TUBE Q96H PRN PRN Reason: Constipation bisacodyL [Dulcolax] 10 mg RECTAL DAILY PRN PRN Reason: Constipation Banatrol Plus 1 pack PEG/G-TUBE Q12H PRN PRN Reason: SUPPLEMENT Acetaminophen Oral Susp [Tylenol] 640 mg PEG/G-TUBE Q6H PRN PRN Reason: Pain Or Fever > 100.5 levETIRAcetam [Keppra Oral Solution] 500 mg PEG/G-TUBE BID@0700,1700 carBAMazepine [carBAMazepine Oral Susp] 300 mg PEG/G-TUBE BID@0700,1700 Liquacel Liquid 30 ml PEG/G-TUBE DAILY@0700 Levothyroxine Sodium [Synthroid] 150 mcg PEG/G-TUBE DAILY@0300 Esomeprazole Magnesium [NexIUM] 40 mg PEG/G-TUBE DAILY@0500 Fluticasone Nasal [place] [Flonase Nasal [place]] 1 spr EA NOSTRIL DAILY@1200 Aspirin EC [Ecotrin Low Dose] 81 mg PEG/G-TUBE DAILY@0700 Magnesium Hydroxide [Milk of Magnesia] 2,400 mg PEG/G-TUBE Q48H PRN PRN Reason: Constipation Discontinued Clobazam [Onfi] 10 mg PO DAILY@1700 Discharge Medication List Acetaminophen Oral Susp [Tylenol] 640 mg PEG/G-TUBE Q6H PRN 01/22/20 [History] Aspirin EC [Ecotrin Low Dose] 81 mg PEG/G-TUBE DAILY@0700 01/22/20 [History] Banatrol Plus 1 pack PEG/G-TUBE Q12H PRN 01/22/20 [History] Esomeprazole Magnesium [NexIUM] 40 mg PEG/G-TUBE DAILY@0500 01/22/20 [History] Fluticasone Nasal [place] [Flonase Nasal [place]] 1 spr EA NOSTRIL DAILY@1200 01/22/20 [History] Levothyroxine Sodium [Synthroid] 150 mcg PEG/G-TUBE DAILY@0300 01/22/20 [History] Liquacel Liquid 30 ml PEG/G-TUBE DAILY@0700 01/22/20 [History] Magnesium Hydroxide [Milk of Magnesia] 2,400 mg PEG/G-TUBE Q48H PRN 01/22/20 [History] Na Phos,M-B/Na Phos,Di-Ba [Fleet Adult] 133 ml PEG/G-TUBE Q96H PRN 01/22/20 [Hi story] bisacodyL [Dulcolax] 10 mg RECTAL DAILY PRN 01/22/20 [History] carBAMazepine [carBAMazepine Oral Susp] 300 mg PEG/G-TUBE BID@0700,1700 01/22/20 [History] levETIRAcetam [Keppra Oral Solution] 500 mg PEG/G-TUBE BID@0700,1700 01/22/20 [History] cefTAZidime [Fortaz] 1 gm IVPB Q12HR 3 Days #6 vial 01/27/20 [Rx] Follow up Appointment(s)/Referral(s): Andi Ivy MD [Primary Care Provider] - 1-2 days Discharge Disposition: TRANSFER TO SNF/ECF Care Plan Goals (MU): EN formula Jevity 1.5 Continuous 50 mL/hr 1,200 mL total/day 1,800 kcals total/day 30 mL free water flushes every 4 hours. Additional 612 mL of water/day Bolus 5 cans/day Jevity 1.5 Plan of Treatment: Peg tube: drain sponge
== END 2020-01-27 15:43 | DRG 178 ==
LOC: EEVIPCON 07:16 → EC 07:16 → 4SSUR 09:06
PROVIDERS: ADMIT Internal Medicine; ATTEND Internal Medicine
PROC: 05HC33Z Insertion of Infusion Device into Left Basilic Vein, Percutaneous Approach (ICD-10-PCS; principal; 2020-01-23 13:10)
PROC: 05HC33Z Insertion of Infusion Device into Left Basilic Vein, Percutaneous Approach (ICD-10-PCS; 2020-01-24 07:30)
PROC: 05HD33Z Insertion of Infusion Device into Right Cephalic Vein, Percutaneous Approach (ICD-10-PCS; 2020-01-27)
DX: U07.1 COVID-19 (principal); T83.511A Infection and inflammatory reaction due to indwelling urethral catheter, initial encounter; K94.23 Gastrostomy malfunction; K94.22 Gastrostomy infection; N39.0 Urinary tract infection, site not specified; N18.30 Chronic kidney disease, stage 3 unspecified; G70.9 Myoneural disorder, unspecified; G40.909 Epilepsy, unspecified, not intractable, without status epilepticus; B96.5 Pseudomonas (aeruginosa) (mallei) (pseudomallei) as the cause of diseases classified elsewhere; B96.89 Other specified bacterial agents as the cause of diseases classified elsewhere; B95.61 Methicillin susceptible Staphylococcus aureus infection as the cause of diseases classified elsewhere; E03.9 Hypothyroidism, unspecified; R50.9 Fever, unspecified; R05 Cough; K21.9 Gastro-esophageal reflux disease without esophagitis; R13.10 Dysphagia, unspecified; R33.9 Retention of urine, unspecified; K59.00 Constipation, unspecified; R26.9 Unspecified abnormalities of gait and mobility; F89 Unspecified disorder of psychological development; Z79.82 Long term (current) use of aspirin; Z79.890 Hormone replacement therapy; Z79.899 Other long term (current) drug therapy; Z74.01 Bed confinement status; Z86.718 Personal history of other venous thrombosis and embolism; Z87.19 Personal history of other diseases of the digestive system; Z86.59 Personal history of other mental and behavioral disorders; Y84.6 Urinary catheterization as the cause of abnormal reaction of the patient, or of later complication, without mention of misadventure at the time of the procedure; Y84.8 Other medical procedures as the cause of abnormal reaction of the patient, or of later complication, without mention of misadventure at the time of the procedure
CPT/HCPCS: 36410; 36415; 71045; 74018; 76937; 77001; 80048; 80053; 81001; 82728; 83605; 83615; 83735; 84145; 85025; 85379; 85610; 85730; 86140; 87040; 87070; 87077; 87086; 87186; 87205; 93005; 96374; 99285

== ENCOUNTER 2020-06-16 10:36 | Inpatient (IN) | payer MEDICARE, OTHER ==
--- NOTE | 2020-06-16 11:53 | ED ---
General Adult HPI - General Chief complaint: Urogenital Stated complaint: UTI Time Seen by Provider: 06/16/20 10:36 Source: patient, EMS, RN notes reviewed, old records reviewed Mode of arrival: EMS Limitations: altered mental status - History of Present Illness Initial comments: This is a 64-year-old female who is developmentally delayed. Patient was sent to [facility] this morning and they determined the patient had a urinary tract infection was hyponatremic. According to the patient's physician the physician is concerned that the patient is developing diabetes insipidus and would like the patient to come to our facility to be worked up further. Patient has history of fever and that is the reason the patient was sent to [facility]. There has been no history of any vomiting or diarrhea that we know of and no further history is available at this time - Related Data Home Medications Medication Instructions Recorded Confirmed Acetaminophen Oral Susp [Tylenol] 640 mg PEG/G-TUBE Q6H PRN 01/22/20 06/16/20 Aspirin EC [Ecotrin Low Dose] 81 mg PEG/G-TUBE DAILY@0700 01/22/20 06/16/20 Banatrol Plus 1 pack PEG/G-TUBE Q12H PRN 01/22/20 06/16/20 Fluticasone Nasal [place] [Flonase 1 spr EA NOSTRIL DAILY@0700 01/22/20 06/16/20 Nasal [place]] Levothyroxine Sodium [Synthroid] 150 mcg PEG/G-TUBE DAILY@0300 01/22/20 06/16/20 Liquacel Liquid 30 ml PEG/G-TUBE DAILY@0700 01/22/20 06/16/20 Magnesium Hydroxide [Milk of 2,400 mg PEG/G-TUBE Q48H PRN 01/22/20 06/16/20 Magnesia] Na Phos,M-B/Na Phos,Di-Ba [Fleet 133 ml PEG/G-TUBE Q96H PRN 01/22/20 06/16/20 Adult] bisacodyL [Dulcolax] 10 mg RECTAL Q72H PRN 01/22/20 06/16/20 carBAMazepine [carBAMazepine Oral 300 mg PEG/G-TUBE BID@0700,1700 01/22/20 06/16/20 Susp] levETIRAcetam [Keppra Oral 500 mg PEG/G-TUBE BID@0700,1700 01/22/20 06/16/20 Solution] Clobazam [Onfi] 10 mg PEG/G-TUBE DAILY@1700 06/16/20 06/16/20 Nexium 40mg Packet 40 mg PEG/G-TUBE DAILY@0500 06/16/20 06/16/20 Allergies Allergy/AdvReac Type Severity Reaction Status Date / Time No Known Allergies Allergy Verified 06/16/20 11:56 Review of Systems ROS Statement: Those systems with pertinent positive or pertinent negative responses have been documented in the HPI. ROS Other: All systems not noted in ROS Statement are negative. 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 History of Any Multi-Drug Resistant Organisms: None Reported Past Surgical History: Unable to Obtain Additional Past Surgical History / Comment(s): PEG Past Anesthesia/Blood Transfusion Reactions: Unable to Obtain Past Psychological History: Depression Smoking Status: Never smoker Past Alcohol Use History: None Reported Past Drug Use History: None Reported - Past Family History Father History Unknown: Yes Mother History Unknown: Yes General Exam - General Exam Comments Initial Comments: GENERAL: Patient is well-developed and well-nourished. Patient is nontoxic and well- hydrated and is in no acute distress. ENT: Neck is soft and supple. No significant lymphadenopathy is noted. Oropharynx is clear. Moist mucous membranes. EYES: The sclera were anicteric and conjunctiva were pink and moist. Extraocular movements were intact and pupils were equal round and reactive to light. Eyelids were unremarkable. PULMONARY: Unlabored respirations. Good breath sounds bilaterally. No audible rales rhonchi or wheezing was noted. CARDIOVASCULAR: There is a regular rate and rhythm without any murmurs gallops or rubs. ABDOMEN: Soft and nontender with normal bowel sounds. SKIN: Skin is clear with no lesions or rashes and otherwise unremarkable. NEUROLOGIC: Patient is alert patient at baseline is nonverbal. Cranial nerves II through XII are grossly intact. LYMPHATICS: No significant lymphadenopathy is noted PSYCHIATRIC: Normal psychiatric evaluation. Limitations: altered mental status Course Vital Signs 06/16/20 10:40 Temperature 98.8 F Pulse Rate 89 Respiratory 16 Rate Blood Pressure 174/87 O2 Sat by Pulse 95 Oximetry Medical Decision Making - Medical Decision Making Chest x-ray shows no acute abnormality. I spoke with Dr. Morrison he agreed to admit the patient admitted the patient wrote admitting orders and consult nephrology Disposition Clinical Impression: Urinary tract infection, Hypernatremia Disposition: ADMITTED IP TO THIS HOSP Referrals: Andi Ivy MD [Primary Care Provider] - 1-2 days Time of Disposition: 12:39
--- NOTE | 2020-06-16 11:58 | XR ---
EXAMINATION TYPE: XR chest 2V DATE OF EXAM: 06/16/2020 COMPARISON: Chest x-ray January 22, 2020 HISTORY: Dyspnea. TECHNIQUE: Frontal and lateral views of the chest are obtained. FINDINGS: Elevated left hemidiaphragm and chronic parenchymal changes redemonstrated. Background lung volumes redemonstrated. There is no new suspicious focal air space opacity, pleural effusion, or pne umothorax seen. The cardiac silhouette size is stable and enlarged with atherosclerotic change aorti c knob. The osseous structures are demineralized. IMPRESSION: Cardiomegaly and chronic parenchymal changes without acute pulmonary process. No signifi cant change from prior x-ray.
[2020-06-16] MEDS ORDERED: SODIUM CHLORIDE 0.9% 1,000 ML IV ONE (12:41)
[2020-06-16] MEDS ORDERED: ACETAMINOPHEN ORAL SUSP (PEDS) 3,840 MG/120 ML BOTTLE PEG/G-TUBE PRN (20:27)
[2020-06-16] MEDS ORDERED: NA PHOS,M-B/NA PHOS,DI-BA 133 ML ENEMA RECTAL PRN (20:27)
[2020-06-16] MEDS ORDERED: bisacodyL 10 MG SUPP RECTAL PRN (20:27)
[2020-06-16] MEDS ORDERED: MAGNESIUM HYDROXIDE 2,400 MG/10 ML CUP PEG/G-TUBE PRN (20:27)
[2020-06-16] MEDS: ENOXAPARIN 40 MG/0.4 ML SYRINGE SQ SCH (21:01)
[2020-06-16] MEDS: carBAMazepine 200 MG TAB PEG/G-TUBE SCH (21:09)
[2020-06-16] MEDS: levETIRAcetam ORAL SOLN 500 MG/5 ML CUP PEG/G-TUBE SCH (21:26)
[2020-06-17] MEDS: LEVOTHYROXINE 75 MCG TAB PEG/G-TUBE SCH (02:56)
[2020-06-17] MEDS: PANTOPRAZOLE SODIUM 40 MG GRANULE PKT PEG/G-TUBE SCH (05:37)
[2020-06-17] MEDS: ASPIRIN 81 MG PEG/G-TUBE SCH (06:47)
[2020-06-17] MEDS: carBAMazepine 200 MG TAB PEG/G-TUBE SCH ×2 (06:47→18:30)
[2020-06-17] MEDS: levETIRAcetam ORAL SOLN 500 MG/5 ML CUP PEG/G-TUBE SCH ×2 (06:52→18:30)
[2020-06-17] MEDS: LIQUACEL PEG/G-TUBE SCH (07:16)
[2020-06-17] MEDS: ENOXAPARIN 40 MG/0.4 ML SYRINGE SQ SCH (09:48)
[2020-06-17] MEDS: DEXTROSE 5%-0.45% NACL 1,000 ML IV SCH ×2 (11:09→18:01)
[2020-06-17 11:32] LABS: Appearance,Urine Turbid (Clear); Bacteria,Urine Moderate /hpf; Bilirubin,Urine Negative (Negative); Blood,Urine Large (Negative); Color,Urine Yellow; Glucose,Urine (UA) Negative (Negative); Ketones,Urine Negative (Negative); Leukocyte Esterase,Urine Large (Negative); Mucus,Urine Few /hpf; Nitrite,Urine Negative (Negative); PH, Urine 7.5 (5.0-8.0); Protein,Urine 2+ (Negative); RBC,Urine >182 /hpf (0-5); Specific Gravity,Urine 1.018 (1.001-1.035); Squamous Epithelial Cell,Urine 72 /hpf (0-4); Triple Phosphate Crystal,Urine Occasional /hpf; Urobilinogen,Urine <2.0 mg/dL (<2.0); WBC,Urine >182 /hpf (0-5)
[2020-06-17 11:37] LABS: Glucose,Whole Blood 104 mg/dL (75-99)
[2020-06-17 11:42] LABS: African American GFR (CKD) 48 (>60 ml/min/1.73 sqM); Anion Gap 11 mmol/L; Blood Urea Nitrogen 57 mg/dL (7-17); Calcium 9.7 mg/dL (8.4-10.2); Carbon Dioxide 25 mmol/L (22-30); Chloride 120 mmol/L (98-107); Glucose 102 mg/dL (74-99); Non-African American GFR(CKD) 42 (>60 ml/min/1.73 sqM); Sodium 156 mmol/L (137-145)
[2020-06-17 11:55] LABS: Potassium 4.9 mmol/L (3.5-5.1)
--- NOTE | 2020-06-17 12:04 | CONS ---
CONSULTATION REASON FOR CONSULT: Hypernatremia. HISTORY OF PRESENT ILLNESS: The patient is a 64-year-old female who was transferred from [facility] with concern for possible diabetes insipidus. It is difficult to obtain history from the patient. I did see a serum sodium of 157 yesterday on 06/16/2020. It appears that the patient has had good urine output, although urine output is not accurately charted. The patient has an underlying psych history and is maintained on Keppra and carbamazepine. She also has a history of hypothyroidism. Blood pressure is currently on the higher side with systolic 140-160 mmHg and patient is maintained on D5 0.45 at 125 mL an hour. She was initially on saline, which was discontinued last night. No other history can be obtained. However, there is no documentation of diarrhea, nausea or vomiting. The patient has a PEG tube and is maintained on tube feedings. It is unclear why. PAST MEDICAL HISTORY: Gastroesophageal reflux disease, seizure disorder, developmental delay and neuromuscular dysfunction details not clear, history of urine retention, history of enteric fistula details not known, hypothyroidism. PAST SURGICAL HISTORY: PEG tube. SOCIAL HISTORY: Negative for smoking, drug abuse or alcohol abuse. MEDICATIONS: Medications prior to admission included Tylenol, aspirin, milk of magnesia, , Jevity tube feeding, Synthroid, Dulcolax, Keppra, Nexium. ALLERGIES: None. REVIEW OF SYSTEMS: Review of systems cannot be obtained. Mostly as per HPI. PHYSICAL EXAMINATION: Patient is comfortable, awake. She does not communicate much. She did answer to simple questions as per nursing staff earlier today. Blood pressure was 151/71, heart rate 68 per minute. She is afebrile. EXAMINATION OF THE HEART: S1, S2. EXAMINATION OF THE LUNGS: Bilateral breath sounds are heard. Abdomen is soft, nontender, obese. Examination of lower extremities shows no evidence of edema. RESEARCH PROFESSOR exam shows patient is moving all 4 extremities. LABS: Labs are not available from today. Serum sodium was noted to be 157 yesterday with creatinine of 1.5 mg/dL. Other labs are all ordered and currently pending. ASSESSMENT: 1. Hypernatremia secondary to free water deficit. I did see that patient is maintained on tube feedings. We will most likely need to add free water with her tube feedings if she is maintained on that. However, if she is able to drink, she can increase her free water intake by mouth as well. 2. Seizure disorder, maintained on Keppra. 3. History of enteric fistula, details not clear. Currently maintained on tube feedings. The patient has a PEG tube. 4. Hypothyroidism. 5. Hypertension. PLAN: Continue with D5 0.45 for now. Check BMP today and then again in a.m. Check urinalysis. Thank you for this consultation. Will continue to follow the patient with you during her hospitalization. MMJANIAL / IJN: [id number] /
[2020-06-17 16:57] LABS: Glucose,Whole Blood 132 mg/dL (75-99)
[2020-06-17] MEDS: CLOBAZAM 10 MG PEG/G-TUBE SCH (18:12)
--- NOTE | 2020-06-17 19:51 | P.HPIM ---
History of Present Illness H&P Date: 06/17/20 Chief Complaint: Increased sodium History of presenting complaint: This is a 64-year-old patient who follows with Dr. Andi Ivy at [facility]. Chronic stable medications stated are scoliosis, epilepsy, myopathy, CHF, depression, mental retardation, bladder dysfunction, GERD, hypothyroid, chronic kidney disease. Patient is positive is had a nephrectomy. Patient has a chronic G-tube and a Pantoja catheter. Patient was sent in from her ECF to the [place] [facility] for low-grade fever. Vital signs on arrival there were blood pressure 1 59 x 6 Pulse 104 this patient 18 Epogen 100.5 pulse ox 94% room air. Doesn't concern by the physician there about diabetes insipidus has patient was transferred down here. Patient herself not able to give any history. Review of systems cannot be obtained with the patient Past medical history to include: Scoliosis, epilepsy, myopathy, CHF, depression, and retardation, bladder dysfunction, GERD, hypothyroid, chronic kidney disease, nephrectomy, patient has a chronic G-tube and a Pantoja catheter Social history: No history of smoking or alcohol reported. Currently At [facility]. Needs assistance with all ADLs. Patient likes to string beads. Family history: Patient cannot tell. Physical examination: VITAL SIGNS: ID 98.8, 89, 16, 174/87, 95% room air GENERAL: BMI 35.4, laying in bed awake. EYES: Pupils equal. Conjunctiva normal. HEENT: External appearance of nose and ears normal, oral cavity dry. NECK: JVD unable to assess; masses not palpable. HEART: First and second heart sounds are normal; no edema. LUNGS: Respiratory rate normal; decreased breath sounds. ABDOMEN: Soft, nontender, liver spleen not palpable, no masses palpable. PEG tube PSYCH: Unable to assessl. NEUROLOGICAL: [Cranial nerves grossly intact; no facial asymmetry, LYMPHATICS: No lymph nodes palpable in the axilla and neck INVESTIGATIONS, reviewed in the clinical context: Sodium 156 potassium 4.9 bun 57 creatinine 1.34 serum osmolality 345 UA positive for leukoesterase, WBC squamous epithelial cells Patient was negative for COVID, influenza A &B at [facility] Chest x-ray film personally reviewed by mo-portable/no obvious infiltrates Labs from [place]: WBC 8.1 hemoglobin 14.2 platelets 245 Assessment and plan: -Severe hypernatremia with hyperchloremia from free water deficit. Patient be started on IV fluids in the form of D5 0.45. He also had free fluids through the PEG tube -PEG tube feeding. Dietitian consulted. -Obesity BMI 35.4 -Chronic scoliosis -Chronic epilepsy disorder. Continue with Tegretol -Chronic serous myopathy. Patient will need assistance for activities. -Chronic mental retardation. -Chronic bladder dysfunction. Has a chronic Pantoja. Contaminated urine -Hypothyroid continue with Synthroid -Known chronic kidney disease. Baseline creatinine unknown. -Highly doubt UTI. No fever no white count. Patient's urine sample rather contaminated. No indication for antibiotics Start IV fluids both of the PEG tube and IV. Follow lites closely. Nephrology consulted. 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 History of Any Multi-Drug Resistant Organisms: None Reported Past Surgical History: Unable to Obtain Additional Past Surgical History / Comment(s): PEG Past Anesthesia/Blood Transfusion Reactions: Unable to Obtain Past Psychological History: Depression Smoking Status: Never smoker Past Alcohol Use History: None Reported Past Drug Use History: None Reported - Past Family History Father History Unknown: Yes Mother History Unknown: Yes Medications and Allergies Home Medications Medication Instructions Recorded Confirmed Type Acetaminophen Oral Susp [Tylenol] 640 mg PEG/G-TUBE Q6H PRN 01/22/20 06/16/20 History Aspirin EC [Ecotrin Low Dose] 81 mg PEG/G-TUBE DAILY@0700 01/22/20 06/16/20 History Banatrol Plus 1 pack PEG/G-TUBE Q12H PRN 01/22/20 06/16/20 History Fluticasone Nasal [place] [Flonase 1 spr EA NOSTRIL DAILY@0700 01/22/20 06/16/20 History Nasal [place]] Levothyroxine Sodium [Synthroid] 150 mcg PEG/G-TUBE DAILY@0300 01/22/20 06/16/20 History Liquacel Liquid 30 ml PEG/G-TUBE DAILY@0700 01/22/20 06/16/20 History Magnesium Hydroxide [Milk of 2,400 mg PEG/G-TUBE Q48H PRN 01/22/20 06/16/20 History Magnesia] Na Phos,M-B/Na Phos,Di-Ba [Fleet 133 ml PEG/G-TUBE Q96H PRN 01/22/20 06/16/20 History Adult] bisacodyL [Dulcolax] 10 mg RECTAL Q72H PRN 01/22/20 06/16/20 History carBAMazepine [carBAMazepine Oral 300 mg PEG/G-TUBE BID@0700,1700 01/22/20 06/16/20 History Susp] levETIRAcetam [Keppra Oral 500 mg PEG/G-TUBE BID@0700,1700 01/22/20 06/16/20 History Solution] Clobazam [Onfi] 10 mg PEG/G-TUBE DAILY@1700 06/16/20 06/16/20 History Nexium 40mg Packet 40 mg PEG/G-TUBE DAILY@0500 06/16/20 06/16/20 History Allergies Allergy/AdvReac Type Severity Reaction Status Date / Time No Known Allergies Allergy Verified 06/16/20 11:56 Physical Exam Vitals: Vital Signs Temp Pulse Resp BP Pulse Ox 06/17/20 06:55 98.0 F 68 16 151/71 98 06/17/20 05:00 97.5 F L 74 18 164/76 97 06/16/20 23:00 98.0 F 78 16 142/86 96 06/16/20 19:00 97.7 F 85 18 169/77 95 06/16/20 18:00 18 06/16/20 17:00 18 06/16/20 16:00 18 06/16/20 15:00 85 18 170/78 95 06/16/20 14:00 18 95 06/16/20 13:00 85 18 178/97 95 06/16/20 12:46 18 06/16/20 11:46 18 06/16/20 10:46 18 06/16/20 10:40 98.8 F 89 16 174/87 95 Intake and Output 06/16/20 06/17/20 06/17/20 22:59 06:59 14:59 Output Total 350 Balance -350 Output: Urine 350 Uretheral (Pantoja) 350 Results CBC & Chem 7: 06/17/20 10:49
[2020-06-18] MEDS: DEXTROSE 5%-0.45% NACL 1,000 ML IV SCH ×3 (00:12→18:22)
[2020-06-18] MEDS: LEVOTHYROXINE 75 MCG TAB PEG/G-TUBE SCH (04:43)
[2020-06-18] MEDS: PANTOPRAZOLE SODIUM 40 MG GRANULE PKT PEG/G-TUBE SCH (04:43)
[2020-06-18] MEDS: LIQUACEL PEG/G-TUBE SCH (05:43)
[2020-06-18] MEDS: levETIRAcetam ORAL SOLN 500 MG/5 ML CUP PEG/G-TUBE SCH ×2 (06:16→17:58)
[2020-06-18] MEDS: carBAMazepine 200 MG TAB PEG/G-TUBE SCH ×2 (06:17→17:59)
[2020-06-18] MEDS: ASPIRIN 81 MG PEG/G-TUBE SCH (06:18)
[2020-06-18] MEDS: ENOXAPARIN 40 MG/0.4 ML SYRINGE SQ SCH (08:35)
[2020-06-18 08:42] LABS: Basophils % (A) 1 %; Eosinophils # (A) 0.3 k/uL (0-0.7); Eosinophils % (A) 5 %; HCT 38.9 % (34.0-46.0); Lymphocytes # (A) 1.2 k/uL (1.0-4.8); Lymphocytes % (A) 19 %; MCH 28.5 pg (25.0-35.0); MCHC 33.3 g/dL (31.0-37.0); MCV 85.7 fL (80.0-100.0); Monocytes # (A) 0.3 k/uL (0-1.0); Monocytes % (A) 4 %; Neutrophils # (A) 4.2 k/uL (1.3-7.7); Neutrophils % (A) 69 %; Platelet Count 213 k/uL (150-450); RBC 4.54 m/uL (3.80-5.40); RDW 14.7 % (11.5-15.5); WBC 6.1 k/uL (3.8-10.6)
[2020-06-18 08:54] LABS: African American GFR (CKD) 51 (>60 ml/min/1.73 sqM); Anion Gap 7 mmol/L; Blood Urea Nitrogen 44 mg/dL (7-17); Calcium 8.7 mg/dL (8.4-10.2); Carbon Dioxide 24 mmol/L (22-30); Chloride 118 mmol/L (98-107); Glucose 138 mg/dL (74-99); Non-African American GFR(CKD) 45 (>60 ml/min/1.73 sqM); Potassium 4.1 mmol/L (3.5-5.1); Sodium 149 mmol/L (137-145)
--- NOTE | 2020-06-18 15:56 | PN ---
PROGRESS NOTE The patient is seen for followup for hypernatremia. She is currently maintained on half-normal saline and serum sodium continues to improve. There was concern for possible SIADH. However, urine output does not appear to be significantly high. A 24- hour urine output documented at about 1.2 L. PHYSICAL EXAMINATION: Patient does not communicate much. She appears apprehensive. Blood pressure was 148/66, heart rate 60 per minute. She is afebrile. EXAMINATION OF THE HEART: S1, S2. EXAMINATION OF LUNGS: Decreased breath sounds at bases. Abdomen is soft, nontender. Examination of lower extremities shows no evidence of edema. DESIGN CHECKER exam shows no major motor deficits. Patient is moving all 4 extremities, but does not communicate much. LABS: Labs show sodium 149, potassium 4.1, chloride 118, CO2 is 24, BUN 44, creatinine 1.28. ASSESSMENT: 1. Hypernatremia associated with free water deficit, maintained on half-normal saline. Patient also has tube feedings and I will add free water with her tube feedings as well. 2. History of seizure disorder. 3. Hypothyroidism. PLAN: Continue half-normal saline and increase free water with the feeding tube. MMODL / IJN: [id number] /
[2020-06-18] MEDS: CLOBAZAM 10 MG PEG/G-TUBE SCH (17:08)
[2020-06-19] MEDS: PANTOPRAZOLE SODIUM 40 MG GRANULE PKT PEG/G-TUBE SCH (06:08)
[2020-06-19] MEDS: LEVOTHYROXINE 75 MCG TAB PEG/G-TUBE SCH (06:08)
[2020-06-19] MEDS: DEXTROSE 5%-0.45% NACL 1,000 ML IV SCH (06:08)
[2020-06-19 07:58] LABS: African American GFR (CKD) 60 (>60 ml/min/1.73 sqM); Anion Gap 7 mmol/L; Basophils % (A) 1 %; Blood Urea Nitrogen 35 mg/dL (7-17); Calcium 8.7 mg/dL (8.4-10.2); Carbon Dioxide 23 mmol/L (22-30); Chloride 114 mmol/L (98-107); Eosinophils # (A) 0.3 k/uL (0-0.7); Eosinophils % (A) 6 %; Glucose 93 mg/dL (74-99); HCT 37.7 % (34.0-46.0); HGB 12.3 gm/dL (11.4-16.0); Lymphocytes # (A) 1.4 k/uL (1.0-4.8); Lymphocytes % (A) 24 %; MCH 27.9 pg (25.0-35.0); MCHC 32.7 g/dL (31.0-37.0); MCV 85.6 fL (80.0-100.0); Mean Platelet Volume 8.8; Monocytes # (A) 0.3 k/uL (0-1.0); Monocytes % (A) 6 %; Neutrophils # (A) 3.5 k/uL (1.3-7.7); Neutrophils % (A) 62 %; Non-African American GFR(CKD) 52 (>60 ml/min/1.73 sqM); Platelet Count 221 k/uL (150-450); Potassium 4.3 mmol/L (3.5-5.1); Sodium 144 mmol/L (137-145); WBC 5.6 k/uL (3.8-10.6)
[2020-06-19] MEDS: levETIRAcetam ORAL SOLN 500 MG/5 ML CUP PEG/G-TUBE SCH (08:40)
[2020-06-19] MEDS: ASPIRIN 81 MG PEG/G-TUBE SCH (08:41)
[2020-06-19] MEDS: ENOXAPARIN 40 MG/0.4 ML SYRINGE SQ SCH (08:41)
[2020-06-19] MEDS: LIQUACEL PEG/G-TUBE SCH (08:41)
[2020-06-19] MEDS: carBAMazepine 200 MG TAB PEG/G-TUBE SCH (08:41)
[2020-06-19 12:04] LABS: Appearance,Urine Cloudy (Clear); Bacteria,Urine Rare /hpf; Bilirubin,Urine Negative (Negative); Blood,Urine Large (Negative); Color,Urine Yellow; Glucose,Urine (UA) Negative (Negative); Ketones,Urine Negative (Negative); Leukocyte Esterase,Urine Large (Negative); Mucus,Urine Occasional /hpf; Nitrite,Urine Negative (Negative); Protein,Urine 1+ (Negative); RBC,Urine >182 /hpf (0-5); Specific Gravity,Urine 1.015 (1.001-1.035); Squamous Epithelial Cell,Urine 6 /hpf (0-4); Urobilinogen,Urine <2.0 mg/dL (<2.0); WBC,Urine 139 /hpf (0-5)
[2020-06-19 12:23] VITALS: BP 140/68; PULSE 65; RESP 17; TEMP 97.9
[2020-06-19 13:40] VITALS: BMI 35.1
--- NOTE | 2020-06-19 14:19 | P.PN ---
Subjective Progress Note Date: 06/18/20 Principal diagnosis: Hypernatremia This is a 64-year-old patient who follows with Dr. Andi Ivy at [facility]. Chronic stable medications stated are scoliosis, epilepsy, myopathy, CHF, depression, mental retardation, bladder dysfunction, GERD, hypothyroid, chronic kidney disease. Patient is positive is had a nephrectomy. Patient has a chronic G-tube and a Pantoja catheter. Patient was sent in from her ECF to the [place] ER for low-grade fever. Vital signs on arrival there were blood pressure 1 59 x 6 Pulse 104 this patient 18 Epogen 100.5 pulse ox 94% room air. Doesn't concern by the physician there about diabetes insipidus has patient was transferred down here. Patient herself not able to give any history. Sodium 156 potassium 4.9 bun 57 creatinine 1.34 serum osmolality 345 UA positive for leukoesterase, WBC squamous epithelial cells Patient was negative for COVID, influenza A &B at [place] Chest x-ray film personally reviewed by pa-portable/no obvious infiltrates Labs from [place]: WBC 8.1 hemoglobin 14.2 platelets 245 06/18/2020 Patient is currently lying in the bed comfortably. Awake and alert. Unable to provide any history at this time. No apparent distress. Patient is being continued on IV hydration with half-normal saline and sodium level is improving. Continue with free water via PEG tube and follow up sodium level. We will repeat urinalysis. Patient had Pseudomonas UTI previously. Otherwise patient is afebrile. No leukocytosis. Nephrology is on board. Discussed with medical staff. Current medications reviewed. Objective - Vital Signs Vital signs: Vital Signs Temp 98.6 F 06/18/20 05:57 Pulse 82 06/18/20 05:57 Resp 24 06/18/20 05:57 BP 162/72 06/18/20 05:57 Pulse Ox 94 L 06/18/20 05:57 Intake & Output 06/17/20 06/18/20 06/18/20 18:59 06:59 18:59 Intake Total 800 Output Total 825 450 Balance -25 -450 Weight 90.718 kg Intake: Intake, IV Titration 800 Amount Dextrose 5%-0.45% NaCl 1, 500 000 ml @ 125 mls/hr IV . Q8H [facility] Rx#:[id number] Sodium Chloride 0.9% 1, 300 000 ml @ 75 mls/hr IV . [id number] Rx#:[id number] Output: Urine 825 450 Other: Voiding Method Indwelling Catheter Indwelling Catheter # Bowel Movements 0 - Exam Physical examination: GENERAL: BMI 35.4, laying in bed awake. Patient is unable to provide any history at baseline. EYES: Pupils equal. Conjunctiva normal. HEENT: External appearance of nose and ears normal, oral cavity dry. NECK: JVD unable to assess; masses not palpable. HEART: First and second heart sounds are normal; no edema. LUNGS: Respiratory rate normal; decreased breath sounds. ABDOMEN: Soft, nontender, liver spleen not palpable, no masses palpable. PEG tube PSYCH: Unable to assessl. NEUROLOGICAL: [Cranial nerves grossly intact; no facial asymmetry, LYMPHATICS: No lymph nodes palpable in the axilla and neck - Labs CBC & Chem 7: 06/19/20 06:22 06/19/20 06:22 Labs: Abnormal Lab Results - Last 24 Hours (Table) 06/17/20 06/17/20 06/17/20 Range/Units 10:45 10:49 11:35 Sodium 156 H (137-145) mmol/L Chloride 120 H (98-107) mmol/L BUN 57 H (7-17) mg/dL Creatinine 1.34 H (0.52-1.04) mg/dL Glucose 102 H (74-99) mg/dL POC Glucose (mg/dL) 104 H (75-99) mg/dL Osmolality 345 H* (280-301) mosm/kg Urine Appearance Turbid H (Clear) Urine Protein 2+ H (Negative) Urine Blood Large H (Negative) Ur Leukocyte Esterase Large H (Negative) Urine RBC >182 H (0-5) /hpf Urine WBC >182 H (0-5) /hpf Urine WBC Clumps Many H (None) /hpf Ur Squamous Epith Cells 72 H (0-4) /hpf Triple Phos Crystals Occasional H (None) /hpf Urine Bacteria Moderate H (None) /hpf Urine Mucus Few H (None) /hpf 06/17/20 06/18/20 Range/Units 16:56 08:03 Sodium 149 H (137-145) mmol/L Chloride 118 H (98-107) mmol/L BUN 44 H (7-17) mg/dL Creatinine 1.28 H (0.52-1.04) mg/dL Glucose 138 H (74-99) mg/dL POC Glucose (mg/dL) 132 H (75-99) mg/dL Osmolality (280-301) mosm/kg Urine Appearance (Clear) Urine Protein (Negative) Urine Blood (Negative) Ur Leukocyte Esterase (Negative) Urine RBC (0-5) /hpf Urine WBC (0-5) /hpf Urine WBC Clumps (None) /hpf Ur Squamous Epith Cells (0-4) /hpf Triple Phos Crystals (None) /hpf Urine Bacteria (None) /hpf Urine Mucus (None) /hpf Assessment and Plan Assessment: -Severe hypernatremia with hyperchloremia from free water deficit. Patient be started on IV fluids in the form of D5 0.45. He also had free fluids through the PEG tube -PEG tube feeding. Dietitian consulted. -Obesity BMI 35.4 -Chronic scoliosis -Chronic epilepsy disorder. Continue with Tegretol -Chronic serous myopathy. Patient will need assistance for activities. -Chronic mental retardation. -Chronic bladder dysfunction. Has a chronic Pantoja. Contaminated urine -Hypothyroid continue with Synthroid -Known chronic kidney disease. Baseline creatinine unknown. -Possible UTI. No fever no white count. Patient's urine sample rather contaminated. No indication for antibiotics Start IV fluids both of the PEG tube and IV. Follow lites closely. Nephrology is following.. Given the complexity and severity of patient's condition expect the patient to be in the hospital at least for 2 overnights Time with Patient: Greater than 30
--- NOTE | 2020-06-19 14:24 | P.DS ---
Providers Date of admission: 06/16/20 10:54 Expected date of discharge: 06/19/20 Attending physician: Karri Morrison Consults: 06/16/20 12:41 Consult Physician Urgent Consulting Provider: Shonda Castillo Consult Reason/Comments: Hypernatremia Do you want consulting provider notified?: Yes Primary care physician: Andi Ivy Hospital Course: Discharge diagnosis -Severe hypernatremia with hyperchloremia from free water deficit. Improved now. Patient was given IV fluids in the form of D5 0.45. Continue with free fluids through the PEG tube -Mild acute kidney injury. Prerenal. Improved now. -PEG tube feeding. Dietitian consulted. -Obesity BMI 35.4 -Chronic scoliosis -Chronic epilepsy disorder. Continue with Tegretol -Chronic serous myopathy. Patient will need assistance for activities. -Chronic mental retardation. -Chronic bladder dysfunction. Has a chronic Pantoja. Contaminated urine -Hypothyroid continue with Synthroid -Known chronic kidney disease. Baseline creatinine unknown. -Possible UTI. No fever no white count. However repeat urinalysis is still abnormal. Patient will be started on antibiotic course due to prior history of Pseudomonas UTI. This is a 64-year-old patient who follows with Dr. Andi Ivy at [facility]. Chronic stable medications stated are scoliosis, epilepsy, myopathy, CHF, depression, mental retardation, bladder dysfunction, GERD, hypothyroid, chronic kidney disease. Patient is positive is had a nephrectomy. Patient has a chronic G-tube and a Pantoja catheter. Patient was sent in from her ECF to the [place] ER for low-grade fever. Vital signs on arrival there were blood pressure 1 59 x 6 Pulse 104 this patient 18 Epogen 100.5 pulse ox 94% room air. Doesn't concern by the physician there about diabetes insipidus has patient was transferred down here. Patient herself not able to give any history. Sodium 156 potassium 4.9 bun 57 creatinine 1.34 serum osmolality 345 UA positive for leukoesterase, WBC squamous epithelial cells Patient was negative for COVID, influenza A &B at [place] Chest x-ray film personally reviewed by hi-portable/no obvious infiltrates Labs from [place]: WBC 8.1 hemoglobin 14.2 platelets 245 06/18/2020 Patient is currently lying in the bed comfortably. Awake and alert. Unable to provide any history at this time. No apparent distress. Patient is being continued on IV hydration with half-normal saline and sodium level is improving. Continue with free water via PEG tube and follow up sodium level. We will repeat urinalysis. Patient had Pseudomonas UTI previously. Otherwise patient is afebrile. No leukocytosis. Nephrology is on board. Discussed with medical staff. 06/19/2020 Patient is awake alert but could not provide any history at baseline. Lying in the bed comfortably. No acute overnight issues. Patient is incontinent otherwise and also could not provide any urinary symptoms. Repeat urinalysis is still abnormal with elevated leukocytes and large leukocyte esterase. Patient be started on antibiotic course with Levaquin due to prior history of Pseudomonas UTI. Otherwise sodium level improved to 144 today. Patient was continued on IV hydration with half-normal saline and continue with free water via PEG tube at [facility]. Recommends repeat CBC and BMP in the next 3 days. Patient is stable to be discharged back to [facility]. Physical examination: GENERAL: BMI 35.4, laying in bed awake. Patient is unable to provide any history at baseline. EYES: Pupils equal. Conjunctiva normal. HEENT: External appearance of nose and ears normal, oral cavity dry. NECK: JVD unable to assess; masses not palpable. HEART: First and second heart sounds are normal; no edema. LUNGS: Respiratory rate normal; decreased breath sounds. ABDOMEN: Soft, nontender, liver spleen not palpable, no masses palpable. PEG tube PSYCH: Unable to assessl. NEUROLOGICAL: [Cranial nerves grossly intact; no facial asymmetry, patient is bedridden. LYMPHATICS: No lymph nodes palpable in the axilla and neck Vital Signs - 8 hr 06/19/20 12:23 Temperature 97.9 F Pulse Rate [ 65 Pulse Oximetery ] Respiratory 17 Rate Blood Pressure 140/68 [Left Arm] O2 Sat by Pulse 96 Oximetry Total time taken greater than 35 minutes including 18 minutes for counseling and coordination of care. Patient Condition at Discharge: Fair Plan - Discharge Summary Discharge Rx Participant: No New Discharge Prescriptions: New Levofloxacin [Levaquin] 500 mg PO DAILY 7 Days #7 tab Continue Na Phos,M-B/Na Phos,Di-Ba [Fleet Adult] 133 ml PEG/G-TUBE Q96H PRN PRN Reason: Constipation bisacodyL [Dulcolax] 10 mg RECTAL Q72H PRN PRN Reason: Constipation Banatrol Plus 1 pack PEG/G-TUBE Q12H PRN PRN Reason: Diarrhea Acetaminophen Oral Susp [Tylenol] 640 mg PEG/G-TUBE Q6H PRN PRN Reason: Pain Or Fever > 100.5 levETIRAcetam [Keppra Oral Solution] 500 mg PEG/G-TUBE BID@0700,1700 carBAMazepine [carBAMazepine Oral Susp] 300 mg PEG/G-TUBE BID@0700,1700 Liquacel Liquid 30 ml PEG/G-TUBE DAILY@0700 Levothyroxine Sodium [Synthroid] 150 mcg PEG/G-TUBE DAILY@0300 Fluticasone Nasal [place] [Flonase Nasal [place]] 1 spr EA NOSTRIL DAILY@0700 Aspirin EC [Ecotrin Low Dose] 81 mg PEG/G-TUBE DAILY@0700 Magnesium Hydroxide [Milk of Magnesia] 2,400 mg PEG/G-TUBE Q48H PRN PRN Reason: Constipation Nexium 40mg Packet 40 mg PEG/G-TUBE DAILY@0500 Clobazam [Onfi] 10 mg PEG/G-TUBE DAILY@1700 Discharge Medication List Acetaminophen Oral Susp [Tylenol] 640 mg PEG/G-TUBE Q6H PRN 01/22/20 [History] Aspirin EC [Ecotrin Low Dose] 81 mg PEG/G-TUBE DAILY@0700 01/22/20 [History] Banatrol Plus 1 pack PEG/G-TUBE Q12H PRN 01/22/20 [History] Fluticasone Nasal [place] [Flonase Nasal [place]] 1 spr EA NOSTRIL DAILY@0700 01/22/20 [History] Levothyroxine Sodium [Synthroid] 150 mcg PEG/G-TUBE DAILY@0300 01/22/20 [History] Liquacel Liquid 30 ml PEG/G-TUBE DAILY@0701/22/20 [History] Magnesium Hydroxide [Milk of Magnesia] 2,400 mg PEG/G-TUBE Q48H PRN 01/22/20 [History] Na Phos,M-B/Na Phos,Di-Ba [Fleet Adult] 133 ml PEG/G-TUBE Q96H PRN 01/22/20 [History] bisacodyL [Dulcolax] 10 mg RECTAL Q72H PRN 01/22/20 [History] carBAMazepine [carBAMazepine Oral Susp] 300 mg PEG/G-TUBE BID@0700,1700 01/22/20 [History] levETIRAcetam [Keppra Oral Solution] 500 mg PEG/G-TUBE BID@0700,1700 01/22/20 [History] Clobazam [Onfi] 10 mg PEG/G-TUBE DAILY@1700 06/16/20 [History] Nexium 40mg Packet 40 mg PEG/G-TUBE DAILY@0500 06/16/20 [History] Levofloxacin [Levaquin] 500 mg PO DAILY 7 Days #7 tab 06/19/20 [Rx] Follow up Appointment(s)/Referral(s): Andi Ivy MD [Primary Care Provider] - 1-2 days Activity/Diet/Wound Care/Special Instructions: Give 250 cc water every six hours via peg tube Discharge Disposition: TRANSFER TO SNF/ECF
--- NOTE | 2020-06-19 17:28 | PN ---
PROGRESS NOTE Patient is seen for followup for hypernatremia. Her serum sodium has improved significantly down to 144. She is maintained on half-normal saline. Patient has underlying cognitive impairment. Mentation is currently close to baseline. PHYSICAL EXAMINATION: On examination today patient is comfortable, awake, not in any acute distress. She does not communicate much and likes to put the covers over her head. Blood pressure was 147/73, heart rate 66 per minute. She is afebrile. EXAMINATION OF THE HEART: S1 and S2. EXAMINATION OF LUNGS: Decreased breath sounds at bases. ABDOMEN: Soft, non-tender. Examination of lower extremities shows no evidence of edema. [employer] exam is grossly intact. LABS: Sodium 144, potassium 4.3, chloride 114, BUN 35, creatinine 1.12, hemoglobin 12.3 g/dL. UA shows WBCs more than 182, protein 1+. ASSESSMENT: 1. Hypernatremia associated with free water deficit, currently improved, maintained on half-normal saline, which we can continue. 2. Acute kidney injury, prerenal, currently improved. 3. Urinary tract infection, maintained on antibiotics. 4. Hypothyroidism. PLAN: No evidence of diabetes insipidus. Continue to maintain patient on free water with her tube feedings. Continue current medications. Monitor labs as outpatient. MMODL / IJN: [id number] /
== END 2020-06-19 16:20 | DRG 641 ==
LOC: EC 10:36 → 1SOBS 10:54 → 5NMEDONC 20:24 → 1SOBS 06-17 21:37 → 5NMEDONC 06-18 16:21
PROVIDERS: ADMIT Hospitalist; ATTEND Hospitalist
DX: E87.0 Hyperosmolality and hypernatremia (principal); N39.0 Urinary tract infection, site not specified; I13.0 Hypertensive heart and chronic kidney disease with heart failure and stage 1 through stage 4 chronic kidney disease, or unspecified chronic kidney disease; N17.9 Acute kidney failure, unspecified; R62.50 Unspecified lack of expected normal physiological development in childhood; Z79.82 Long term (current) use of aspirin; G40.909 Epilepsy, unspecified, not intractable, without status epilepticus; Z20.822 Contact with and (suspected) exposure to COVID-19; K21.9 Gastro-esophageal reflux disease without esophagitis; R13.10 Dysphagia, unspecified; R26.9 Unspecified abnormalities of gait and mobility; R33.9 Retention of urine, unspecified; E03.9 Hypothyroidism, unspecified; F32.9 Major depressive disorder, single episode, unspecified; F79 Unspecified intellectual disabilities; I50.9 Heart failure, unspecified; M41.9 Scoliosis, unspecified; N18.9 Chronic kidney disease, unspecified; Z90.5 Acquired absence of kidney; E87.8 Other disorders of electrolyte and fluid balance, not elsewhere classified; E66.9 Obesity, unspecified; Z68.35 Body mass index [BMI] 35.0-35.9, adult; Z93.1 Gastrostomy status; G72.9 Myopathy, unspecified; N31.9 Neuromuscular dysfunction of bladder, unspecified; Z74.01 Bed confinement status
CPT/HCPCS: 71046; 80048; 81001; 83930; 83935; 84300; 85025; 87635; 99285

== ENCOUNTER 2020-10-05 20:10 | Emergency (ER) | payer MEDICARE, OTHER ==
[2020-10-05 20:19] VITALS: BP 143/89; PULSE 77; RESP 18; TEMP 98
--- NOTE | 2020-10-05 20:36 | ED ---
General Adult HPI - General Chief complaint: Recheck/Abnormal Lab/Rx Stated complaint: ABD pain Time Seen by Provider: 10/05/20 20:21 Source: EMS Mode of arrival: EMS Limitations: no limitations - History of Present Illness Initial comments: Dictation was produced using [employer] dictation software. please excuse any grammatical, word or spelling errors. Chief Complaint: 64-year-old female presents with displaced feeding tube History of Present Illness: 64-year-old female presents with displaced feeding tube. Patient has this tube placed several years ago. Patient has mental debility. She allegedly removes her feeding tube on several occasions. She is currently a resident at one of the local nursing homes. He was found today with her feeding tube removed. Chart review does not show any documentation with initial procedure was done with size it was initially placed. The ROS documented in this emergency department record has been reviewed and confirmed by me. Those systems with pertinent positive or negative responses have been documented in the HPI. All other systems are other negative and/or noncontributory. PHYSICAL EXAM: General Impression: Alert and oriented x3, not in acute distress HEENT: Normocephalic atraumatic, extra-ocular movements intact, pupils equal and reactive to light bilaterally, mucous membranes moist. Cardiovascular: Heart regular rate and rhythm Chest: Able to complete full sentences, no retractions, no tachypnea Abdomen: abdomen soft, non-tender, non-distended, no organomegaly, PEG tube site intact with intact tract Musculoskeletal: Pulses present and equal in all extremities, no peripheral edema Motor: no focal deficits noted Neurological: CN II-XII grossly intact, no focal motor or sensory deficits noted Skin: Intact with no visualized rashes Psych: Normal affect and mood ED course: 64-year-old female presents with PEG tube displacement. PEG tube was replaced using 16-Slovak. Vital signs upon arrival are within acceptable limits. No concerns of any other issues per nurse's received report from EMS. X-ray shows successful placement of feeding tube. pegogram xr confirms placement. Patient discharged. - Related Data Home Medications Medication Instructions Recorded Confirmed Acetaminophen Oral Susp [Tylenol] 640 mg PEG/G-TUBE Q6H PRN 01/22/20 06/16/20 Aspirin EC [Ecotrin Low Dose] 81 mg PEG/G-TUBE DAILY@0700 01/22/20 06/16/20 Banatrol Plus 1 pack PEG/G-TUBE Q12H PRN 01/22/20 06/16/20 Fluticasone Nasal [place] [Flonase 1 spr EA NOSTRIL DAILY@0700 01/22/20 06/16/20 Nasal [place]] Levothyroxine Sodium [Synthroid] 150 mcg PEG/G-TUBE DAILY@0300 01/22/20 06/16/20 Liquacel Liquid 30 ml PEG/G-TUBE DAILY@0700 01/22/20 06/16/20 Magnesium Hydroxide [Milk of 2,400 mg PEG/G-TUBE Q48H PRN 01/22/20 06/16/20 Magnesia] Na Phos,M-B/Na Phos,Di-Ba [Fleet 133 ml PEG/G-TUBE Q96H PRN 01/22/20 06/16/20 Adult] bisacodyL [Dulcolax] 10 mg RECTAL Q72H PRN 01/22/20 06/16/20 carBAMazepine [carBAMazepine Oral 300 mg PEG/G-TUBE BID@0700,1700 01/22/20 06/16/20 Susp] levETIRAcetam [Keppra Oral 500 mg PEG/G-TUBE BID@0700,1700 01/22/20 06/16/20 Solution] Clobazam [Onfi] 10 mg PEG/G-TUBE DAILY@1700 06/16/20 06/16/20 Nexium 40mg Packet 40 mg PEG/G-TUBE DAILY@0500 06/16/20 06/16/20 Previous Rx's Medication Instructions Recorded Levofloxacin [Levaquin] 500 mg PO DAILY 7 Days #7 tab 06/19/20 Allergies Allergy/AdvReac Type Severity Reaction Status Date / Time No Known Allergies Allergy Verified 06/16/20 11:56 Review of Systems ROS Statement: Those systems with pertinent positive or pertinent negative responses have been documented in the HPI. ROS Other: All systems not noted in ROS Statement are negative. 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 History of Any Multi-Drug Resistant Organisms: None Reported Past Surgical History: Unable to Obtain Additional Past Surgical History / Comment(s): PEG Past Anesthesia/Blood Transfusion Reactions: Unable to Obtain Past Psychological History: Depression Smoking Status: Never smoker Past Alcohol Use History: None Reported Past Drug Use History: None Reported - Past Family History Father History Unknown: Yes Mother History Unknown: Yes General Exam Limitations: no limitations Course Vital Signs 10/05/20 20:16 Temperature 98 F Pulse Rate 77 Respiratory 18 Rate Blood Pressure 143/89 O2 Sat by Pulse 95 Oximetry Disposition Clinical Impression: Uses feeding tube Disposition: HOME SELF-CARE Condition: Good Is patient prescribed a controlled substance at d/c from ED?: No Referrals: Andi Ivy MD [Primary Care Provider] - 1-2 days
--- NOTE | 2020-10-05 21:10 | XR ---
EXAMINATION TYPE: XR abdomen 1V DATE OF EXAM: 10/05/2020 COMPARISON: NONE HISTORY: Check PEG tube TECHNIQUE: Single view FINDINGS: There is some contrast injected into the gastrostomy tube. The contrast is seen flowing int o the proximal jejunum. There is no extravasation. IMPRESSION: Gastrostomy tube appears in good position.
== END 2020-10-05 21:46 | disposition home or self-care (01) ==
LOC: EC 20:10
DX: T85.528A Displacement of other gastrointestinal prosthetic devices, implants and grafts, initial encounter (principal); K21.9 Gastro-esophageal reflux disease without esophagitis; G40.909 Epilepsy, unspecified, not intractable, without status epilepticus; F32.9 Major depressive disorder, single episode, unspecified; Z79.890 Hormone replacement therapy; Z79.82 Long term (current) use of aspirin; Z79.899 Other long term (current) drug therapy
CPT/HCPCS: 43762; 74018; 99284

== ENCOUNTER 2020-10-23 20:33 | Emergency (ER) | payer MEDICARE, OTHER ==
[2020-10-23 20:58] VITALS: RESP 20; TEMP 97.6
--- NOTE | 2020-10-23 21:00 | ED ---
General Adult HPI - General Chief complaint: Recheck/Abnormal Lab/Rx Stated complaint: PEG tube leaking Time Seen by Provider: 10/23/20 20:47 Source: EMS Mode of arrival: EMS - History of Present Illness Initial comments: Dictation was produced using [email or web address] dictation software. please excuse any grammatical, word or spelling errors. Chief Complaint: 64-year-old female brought in for PEG tube malfunction History of Present Illness: 64-year-old female brought in for PEG tube displacement. According to EMS patient multiple displacement dislodged PEG tubes. Supposedly there was some leakage. Patient unable to provide history present illness at this time. Unable to obtain stated mental status PHYSICAL EXAM: General Impression: Alert, not in acute distress HEENT: Normocephalic atraumatic, extra-ocular movements intact, pupils equal and reactive to light bilaterally, mucous membranes moist. Cardiovascular: Heart regular rate and rhythm Chest: Able to complete full sentences, no retractions, no tachypnea Abdomen: abdomen soft, non-tender, non-distended, no organomegaly, mildly tympanitic PEG tube: There is a PEG tube in the left abdomen, per CBC secured in place no surrounding erythema to the skin Musculoskeletal: Pulses present and equal in all extremities, no peripheral edema Motor: no focal deficits noted Neurological: CN II-XII grossly intact, no focal motor or sensory deficits noted Skin: Intact with no visualized rashes Psych: Normal affect and mood ED course: 64-year-old female presents with PEG tube malfunction. Vital signs upon arrival are within acceptable limits. Patient is well-appearing at bedside. PEG tube appears to be within good position. Laboratory evaluation unremarkable. Findings within acceptable limits. There is gaseous distention without any obstruction. PEG tube is successfully placed with contrast in the stomach. Patient to be discharge. - Related Data Home Medications Medication Instructions Recorded Confirmed Acetaminophen Oral Susp [Tylenol] 640 mg PEG/G-TUBE Q6H PRN 01/22/20 06/16/20 Aspirin EC [Ecotrin Low Dose] 81 mg PEG/G-TUBE DAILY@0701/22/20 06/16/20 Banatrol Plus 1 pack PEG/G-TUBE Q12H PRN 01/22/20 06/16/20 Fluticasone Nasal [place] [Flonase 1 spr EA NOSTRIL DAILY@0701/22/20 06/16/20 Nasal [place]] Levothyroxine Sodium [Synthroid] 150 mcg PEG/G-TUBE DAILY@0300 01/22/20 06/16/20 Liquacel Liquid 30 ml PEG/G-TUBE DAILY@0700 01/22/20 06/16/20 Magnesium Hydroxide [Milk of 2,400 mg PEG/G-TUBE Q48H PRN 01/22/20 06/16/20 Magnesia] Na Phos,M-B/Na Phos,Di-Ba [Fleet 133 ml PEG/G-TUBE Q96H PRN 01/22/20 06/16/20 Adult] bisacodyL [Dulcolax] 10 mg RECTAL Q72H PRN 01/22/20 06/16/20 carBAMazepine [carBAMazepine Oral 300 mg PEG/G-TUBE BID@0700,1700 01/22/20 06/16/20 Susp] levETIRAcetam [Keppra Oral 500 mg PEG/G-TUBE BID@0700,1700 01/22/20 06/16/20 Solution] Clobazam [Onfi] 10 mg PEG/G-TUBE DAILY@1700 06/16/20 06/16/20 Nexium 40mg Packet 40 mg PEG/G-TUBE DAILY@0500 06/16/20 06/16/20 Previous Rx's Medication Instructions Recorded Levofloxacin [Levaquin] 500 mg PO DAILY 7 Days #7 tab 06/19/20 Allergies Allergy/AdvReac Type Severity Reaction Status Date / Time No Known Allergies Allergy Verified 06/16/20 11:56 Review of Systems ROS Statement: Those systems with pertinent positive or pertinent negative responses have been documented in the HPI. ROS Other: All systems not noted in ROS Statement are negative. 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 History of Any Multi-Drug Resistant Organisms: None Reported Past Surgical History: Unable to Obtain Additional Past Surgical History / Comment(s): PEG Past Anesthesia/Blood Transfusion Reactions: Unable to Obtain Past Psychological History: Depression Smoking Status: Never smoker Past Alcohol Use History: None Reported Past Drug Use History: None Reported - Past Family History Father History Unknown: Yes Mother History Unknown: Yes Course Vital Signs 10/23/20 20:40 Temperature 97.6 F Pulse Rate 70 Respiratory 20 Rate Blood Pressure 145/87 O2 Sat by Pulse 98 Oximetry Medical Decision Making - Lab Data Result diagrams: 10/23/20 21:14 10/23/20 21:14 Lab Results 10/23/20 10/23/20 Range/Units 21:14 21:14 WBC 6.9 (3.8-10.6) k/uL RBC 4.86 (3.80-5.40) m/uL Hgb 14.0 (11.4-16.0) gm/dL Hct 41.2 (34.0-46.0) % MCV 84.8 (80.0-100.0) fL MCH 28.8 (25.0-35.0) pg MCHC 34.0 (31.0-37.0) g/dL RDW 15.8 H (11.5-15.5) % Plt Count 297 (150-450) k/uL MPV 7.8 Neutrophils % 65 % Lymphocytes % 22 % Monocytes % 5 % Eosinophils % 5 % Basophils % 1 % Neutrophils # 4.5 (1.3-7.7) k/uL Lymphocytes # 1.5 (1.0-4.8) k/uL Monocytes # 0.4 (0-1.0) k/uL Eosinophils # 0.3 (0-0.7) k/uL Basophils # 0.0 (0-0.2) k/uL Sodium 139 (137-145) mmol/L Potassium 5.3 H (3.5-5.1) mmol/L Chloride 106 (98-107) mmol/L Carbon Dioxide 23 (22-30) mmol/L Anion Gap 10 mmol/L BUN 42 H (7-17) mg/dL Creatinine 1.03 (0.52-1.04) mg/dL Est GFR (CKD-EPI)AfAm 66 (>60 ml/min/1.73 sqM) Est GFR (CKD-EPI)NonAf 58 (>60 ml/min/1.73 sqM) Glucose 85 (74-99) mg/dL Calcium 9.6 (8.4-10.2) mg/dL Total Bilirubin 0.5 (0.2-1.3) mg/dL AST 30 (14-36) U/L ALT 16 (4-34) U/L Alkaline Phosphatase 99 (38-126) U/L Total Protein 7.7 (6.3-8.2) g/dL Albumin 4.4 (3.5-5.0) g/dL Disposition Clinical Impression: PEG tube malfunction Disposition: HOME SELF-CARE Condition: Good Instructions (If sedation given, give patient instructions): PEG Tube Insertion (DC) Is patient prescribed a controlled substance at d/c from ED?: No Referrals: Andi Ivy MD [Primary Care Provider] - 1-2 days
[2020-10-23 21:21] LABS: Basophils % (A) 1 %; Eosinophils # (A) 0.3 k/uL (0-0.7); Eosinophils % (A) 5 %; HCT 41.2 % (34.0-46.0); Lymphocytes # (A) 1.5 k/uL (1.0-4.8); Lymphocytes % (A) 22 %; MCH 28.8 pg (25.0-35.0); MCV 84.8 fL (80.0-100.0); Mean Platelet Volume 7.8; Monocytes # (A) 0.4 k/uL (0-1.0); Monocytes % (A) 5 %; Neutrophils # (A) 4.5 k/uL (1.3-7.7); Neutrophils % (A) 65 %; Platelet Count 297 k/uL (150-450); RBC 4.86 m/uL (3.80-5.40); RDW 15.8 % (11.5-15.5); WBC 6.9 k/uL (3.8-10.6)
[2020-10-23 21:27] LABS: Albumin 4.4 g/dL (3.5-5.0); Calcium 9.6 mg/dL (8.4-10.2); Potassium 5.3 mmol/L (3.5-5.1); Total Bilirubin 0.5 mg/dL (0.2-1.3); Total Protein 7.7 g/dL (6.3-8.2)
[2020-10-23] MEDS ORDERED: SODIUM CHLORIDE 0.9% 1,000 ML IV STA (21:51)
--- NOTE | 2020-10-23 22:02 | XR ---
EXAM: Abdomen radiograph. HISTORY: PEG tube. TECHNIQUE: Supine AP view. COMPARISON: 10/05/2020 FINDINGS: There is demonstration of a gastric tube with tip in the stomach, confirmed by adequately contrast op acification of the stomach and bowel loops via tube injection. There is a nonobstructive pattern. Colonic gaseous distention is seen. There are no pathologic calci fications. No acute osseous abnormality seen. IMPRESSION: Gastric tube with tip in the stomach. Nonobstructive bowel gas pattern. Colonic gaseous distention.
[2020-10-23 22:24] VITALS: BP 166/81; PULSE 71
== END 2020-10-23 23:30 | disposition home or self-care (01) ==
LOC: EC 20:33
DX: K94.23 Gastrostomy malfunction (principal); G40.909 Epilepsy, unspecified, not intractable, without status epilepticus; K21.9 Gastro-esophageal reflux disease without esophagitis; N18.9 Chronic kidney disease, unspecified; E03.9 Hypothyroidism, unspecified; F32.9 Major depressive disorder, single episode, unspecified; Z79.890 Hormone replacement therapy; Z79.82 Long term (current) use of aspirin; Z79.899 Other long term (current) drug therapy
CPT/HCPCS: 36415; 80053; 85025; 74018; 99284; Q9967

== ENCOUNTER 2020-11-02 23:59 | Emergency (ER) | payer MEDICARE, OTHER ==
--- NOTE | 2020-11-03 00:57 | ED ---
Recheck HPI - General Chief Complaint: Recheck/Abnormal Lab/Rx Stated Complaint: Peg Tube Issue Time Seen by Provider: 11/03/20 00:05 Source: patient, EMS Mode of arrival: ambulatory Limitations: language barrier, altered mental status, physical limitation - History of Present Illness Initial Comments: 64-year-old female presents to emergency Department with a chief complaint of PEG tube replacement. Patient patient is nonverbal at baseline. Patient is coming from a medical care facility from [facility] for PEG tube problems. There has been some leaking around the PEG tube for past 3 days. This is a 16-Russian PEG tube. Patient does not appear tender at the PEG tube site. - Related Data Home Medications Medication Instructions Recorded Confirmed Acetaminophen Oral Susp [Tylenol] 640 mg PEG/G-TUBE Q6H PRN 01/22/20 06/16/20 Aspirin EC [Ecotrin Low Dose] 81 mg PEG/G-TUBE DAILY@0700 01/22/20 06/16/20 Banatrol Plus 1 pack PEG/G-TUBE Q12H PRN 01/22/20 06/16/20 Fluticasone Nasal [place] [Flonase 1 spr EA NOSTRIL DAILY@0700 01/22/20 06/16/20 Nasal [place]] Levothyroxine Sodium [Synthroid] 150 mcg PEG/G-TUBE DAILY@0300 01/22/20 06/16/20 Liquacel Liquid 30 ml PEG/G-TUBE DAILY@0700 01/22/20 06/16/20 Magnesium Hydroxide [Milk of 2,400 mg PEG/G-TUBE Q48H PRN 01/22/20 06/16/20 Magnesia] Na Phos,M-B/Na Phos,Di-Ba [Fleet 133 ml PEG/G-TUBE Q96H PRN 01/22/20 06/16/20 Adult] bisacodyL [Dulcolax] 10 mg RECTAL Q72H PRN 01/22/20 06/16/20 carBAMazepine [carBAMazepine Oral 300 mg PEG/G-TUBE BID@0700,1700 01/22/20 06/16/20 Susp] levETIRAcetam [Keppra Oral 500 mg PEG/G-TUBE BID@0700,1700 01/22/20 06/16/20 Solution] Clobazam [Onfi] 10 mg PEG/G-TUBE DAILY@1700 06/16/20 06/16/20 Nexium 40mg Packet 40 mg PEG/G-TUBE DAILY@0500 06/16/20 06/16/20 Previous Rx's Medication Instructions Recorded Levofloxacin [Levaquin] 500 mg PO DAILY 7 Days #7 tab 06/19/20 Allergies Allergy/AdvReac Type Severity Reaction Status Date / Time No Known Allergies Allergy Verified 06/16/20 11:56 Review of Systems ROS Statement: Those systems with pertinent positive or pertinent negative responses have been documented in the HPI. ROS Other: All systems not noted in ROS Statement are negative. 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 History of Any Multi-Drug Resistant Organisms: None Reported Past Surgical History: Unable to Obtain Additional Past Surgical History / Comment(s): PEG Past Anesthesia/Blood Transfusion Reactions: Unable to Obtain Past Psychological History: Depression Smoking Status: Never smoker Past Alcohol Use History: None Reported Past Drug Use History: None Reported - Past Family History Father History Unknown: Yes Mother History Unknown: Yes General Exam Limitations: language barrier, altered mental status, physical limitation General appearance: alert, in no apparent distress, obese Head exam: Present: atraumatic, normocephalic, normal inspection Eye exam: Present: normal appearance Pupils: Present: normal accommodation ENT exam: Present: normal exam, normal oropharynx, mucous membranes moist Neck exam: Present: normal inspection, full ROM Respiratory exam: Present: normal lung sounds bilaterally. Absent: respiratory distress, wheezes, rales, rhonchi, stridor Cardiovascular Exam: Present: regular rate, normal rhythm, normal heart sounds. Absent: systolic murmur GI/Abdominal exam: Present: soft (PEG tube in the left upper quadrant. No significant excoriation near the ostomy site). Absent: distended, tenderness, guarding, rebound, rigid Extremities exam: Present: normal inspection, full ROM Back exam: Present: normal inspection, full ROM Neurological exam: Present: alert Skin exam: Present: warm, dry, normal color Course Vital Signs 11/03/20 00:03 Temperature 98.0 F Pulse Rate 78 Respiratory 18 Rate Blood Pressure 186/96 O2 Sat by Pulse 98 Oximetry Medical Decision Making - Medical Decision Making 64-year-old female, nonverbal at baseline presenting to the emergency department for PEG tube replacement. This was a 16-Russian PEG tube. No significant excoriation near the ostomy site. The old PEG tube was easily removed and a new PEG tube was placed. It was the same size. He was able to flush without difficulties. Patient tolerated procedure well. Case discussed with physician. Disposition Clinical Impression: PEG tube malfunction, Leaking PEG tube Disposition: HOME SELF-CARE Condition: Stable Instructions (If sedation given, give patient instructions): How to Use and Care for Your PEG Tube (ED) Additional Instructions: Please return to the Emergency Department if symptoms worsen or any other concerns. Is patient prescribed a controlled substance at d/c from ED?: No Referrals: Andi Ivy MD [Primary Care Provider] - 1-2 days Time of Disposition: 00:56
[2020-11-03 01:05] VITALS: BP 154/82; PULSE 75; RESP 16
[2020-11-03 01:29] VITALS: TEMP 97.7
== END 2020-11-03 01:26 | disposition home or self-care (01) ==
LOC: EC 23:59
DX: K94.23 Gastrostomy malfunction (principal); E66.9 Obesity, unspecified; N18.9 Chronic kidney disease, unspecified; E03.9 Hypothyroidism, unspecified; K21.9 Gastro-esophageal reflux disease without esophagitis; G40.909 Epilepsy, unspecified, not intractable, without status epilepticus; F32.9 Major depressive disorder, single episode, unspecified; Z79.82 Long term (current) use of aspirin; Z79.890 Hormone replacement therapy; Z79.899 Other long term (current) drug therapy; Z68.30 Body mass index [BMI] 30.0-30.9, adult
CPT/HCPCS: 43762; 99283

== ENCOUNTER → 2022-12-07 | Outpatient (CLI) | payer MEDICARE, OTHER ==
--- NOTE | 2022-12-07 12:22 | FL ---
Exam Date: 12/07/2022 11:47 AM. Modified barium swallow for dysphagia. Consistencies administered: Various consistency of barium. Fluoro time: 1 minute 40 seconds No images were sent to PACS. Please see speech pathology report. DAP: Not reported by machine [email or web address]
== END | disposition home or self-care (01) ==
LOC: RADFLMAIN 10:21
PROVIDERS: ATTEND Family Medicine
DX: R13.10 Dysphagia, unspecified (principal)
CPT/HCPCS: 74230

== ENCOUNTER 2023-06-12 00:38 | Observation (INO) | payer MEDICARE, OTHER ==
[2023-06-12] MEDS ORDERED: IOPAMIDOL CONTRAST (ORAL USE) VIAL PO PRN (01:17)
[2023-06-12 02:05] LABS: Basophils % (A) 1 %; Eosinophils # (A) 0.4 k/uL (0-0.7); Eosinophils % (A) 5 %; HCT 36.5 % (34.0-46.0); HGB 12.5 gm/dL (11.4-16.0); Lymphocytes # (A) 1.3 k/uL (1.0-4.8); Lymphocytes % (A) 17 %; MCH 30.8 pg (25.0-35.0); MCHC 34.3 g/dL (31.0-37.0); MCV 89.7 fL (80.0-100.0); Monocytes # (A) 0.3 k/uL (0-1.0); Monocytes % (A) 4 %; Neutrophils # (A) 5.6 k/uL (1.3-7.7); Neutrophils % (A) 71 %; Platelet Count 268 k/uL (150-450); RBC 4.06 m/uL (3.80-5.40); RDW 15.2 % (11.5-15.5); WBC 7.9 k/uL (3.8-10.6)
[2023-06-12 02:18] LABS: Chloride 105 mmol/L (98-107)
[2023-06-12 02:19] LABS: ALT 19 U/L (4-34); African American GFR (CKD) 65 (>60 ml/min/1.73 sqM); Anion Gap 8 mmol/L; Blood Urea Nitrogen 25 mg/dL (7-17); Calcium 8.7 mg/dL (8.4-10.2); Carbon Dioxide 25 mmol/L (22-30); Glucose 110 mg/dL (74-99); Non-African American GFR(CKD) 56 (>60 ml/min/1.73 sqM); Sodium 138 mmol/L (137-145)
[2023-06-12 02:26] LABS: AST 37 U/L (14-36); Albumin 3.5 g/dL (3.5-5.0); Potassium 5.6 mmol/L (3.5-5.1); Total Bilirubin 0.8 mg/dL (0.2-1.3); Total Protein 6.9 g/dL (6.3-8.2)
[2023-06-12 02:27] LABS: Alkaline Phosphatase 49 U/L (38-126)
--- NOTE | 2023-06-12 03:59 | CT ---
EXAM: CT Abdomen and Pelvis With Intravenous Contrast CLINICAL HISTORY: ITS.REASON CT Reason: re-eval possible obstruction TECHNIQUE: Axial computed tomography images of the abdomen and pelvis with intravenous contrast. CTDI is 38.28 mGy and DLP is 1900.4 mGy-cm. This CT exam was performed using one or more of the following dose reduction techniques: automated exposure control, adjustment of the mA and/or kV according to patient size, and/or use of iterative reconstruction technique. COMPARISON: No relevant prior studies available. FINDINGS: Lung bases: Unremarkable. No mass. No consolidation. ABDOMEN: Liver: Unremarkable. No mass. Gallbladder and bile ducts: Unremarkable. No calcified stones. No ductal dilation. Pancreas: Unremarkable. No mass. No ductal dilation. Spleen: Unremarkable. No splenomegaly. Adrenals: Unremarkable. No mass. Kidneys and ureters: No hydronephrosis of the right kidney. Absent left kidney, correlate for nephrectomy. Stomach and bowel: Metallic screw in the cecum, which was likely ingested. Diverticulosis, without acute diverticulitis. No small bowel obstruction. No free intraperitoneal air. PELVIS: Appendix: No findings to suggest acute appendicitis. Bladder: Pantoja catheter terminates in the urinary bladder. Reproductive: Distention of the endometrium measures 2 cm, recommend nonemergent pelvic ultrasound given the patient is postmenopausal. ABDOMEN and PELVIS: Intraperitoneal space: Unremarkable. No free air. No significant fluid collection. Bones/joints: Degenerative changes of the spine. No acute fracture. No dislocation. Soft tissues: Unremarkable. Vasculature: Atherosclerotic changes of the aorta. No abdominal aortic aneurysm. Lymph nodes: Unremarkable. No enlarged lymph nodes. Tubes, lines and devices: Hepatic steatosis prepared a PEG tube in the stomach. IMPRESSION: 1. Hepatic steatosis prepared a PEG tube in the stomach. 2. No hydronephrosis of the right kidney. Absent left kidney, correlate for nephrectomy. 3. Pantoja catheter terminates in the urinary bladder. 4. Distention of the endometrium measures 2 cm, recommend nonemergent pelvic ultrasound given the patient is postmenopausal. 5. Metallic screw in the cecum, which was likely ingested. 6. Diverticulosis, without acute diverticulitis. No small bowel obstruction. No free intraperitoneal air.
[2023-06-12] MEDS ORDERED: NALOXONE 0.4 MG/ML 1 ML VIAL IV PRN (04:02)
--- NOTE | 2023-06-12 04:09 | ED ---
General Adult HPI - General Chief complaint: Abdominal Pain Stated complaint: Peg tube leak Source: EMS Mode of arrival: EMS Limitations: physical limitation - History of Present Illness Initial comments: This patient is a 67-year-old woman who is here to have evaluation by surgery for possible internal hernia. The patient reportedly has history of stroke and is nonverbal. She was taken from her long-term care facility to the emergency department at [facility] to have evaluation related to suspected peg tube infection. There was noted to be some thick white drainage around the tube so they sent her to be evaluated. The patient not noted to have fever. While there the patient had CT scan which showed some thickened bowel loops that were interpreted as showing possible signs of internal hernia. On evaluation here the patient is not able to give any history as nonverbal. -: unknown Location: abdomen Consistency: constant Improves with: none Worsens with: none Treatments Prior to Arrival: none - Related Data Home Medications Medication Instructions Recorded Confirmed Acetaminophen Oral Susp [Tylenol] 640 mg PEG/G-TUBE Q6H PRN 01/22/20 06/16/20 Aspirin EC [Ecotrin Low Dose] 81 mg PEG/G-TUBE DAILY@0700 01/22/20 06/16/20 Banatrol Plus 1 pack PEG/G-TUBE Q12H PRN 01/22/20 06/16/20 Fluticasone Nasal [place] [Flonase 1 spr EA NOSTRIL DAILY@0701/22/20 06/16/20 Nasal [place]] Levothyroxine Sodium [Synthroid] 150 mcg PEG/G-TUBE DAILY@0300 01/22/20 06/16/20 Liquacel Liquid 30 ml PEG/G-TUBE DAILY@0701/22/20 06/16/20 Magnesium Hydroxide [Milk of 2,400 mg PEG/G-TUBE Q48H PRN 01/22/20 06/16/20 Magnesia] Na Phos,M-B/Na Phos,Di-Ba [Fleet 133 ml PEG/G-TUBE Q96H PRN 01/22/20 06/16/20 Adult] bisacodyL [Dulcolax] 10 mg RECTAL Q72H PRN 01/22/20 06/16/20 carBAMazepine [carBAMazepine Oral 300 mg PEG/G-TUBE BID@0700,1700 01/22/20 06/16/20 Susp] levETIRAcetam [Keppra Oral 500 mg PEG/G-TUBE BID@0700,1700 01/22/20 06/16/20 Solution] Nexium 40mg Packet 40 mg PEG/G-TUBE DAILY@0500 06/16/20 06/16/20 cloBAZam [Onfi] 10 mg PEG/G-TUBE DAILY@1700 06/16/20 06/16/20 Previous Rx's Medication Instructions Recorded levoFLOXacin [Levaquin] 500 mg PO DAILY 7 Days #7 tab 06/19/20 Allergies Allergy/AdvReac Type Severity Reaction Status Date / Time No Known Allergies Allergy Verified 06/12/23 00:46 Review of Systems ROS Statement: Those systems with pertinent positive or pertinent negative responses have been documented in the HPI. ROS Other: All systems not noted in ROS Statement are negative. 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 History of Any Multi-Drug Resistant Organisms: None Reported Past Surgical History: Unable to Obtain Additional Past Surgical History / Comment(s): PEG Past Anesthesia/Blood Transfusion Reactions: Unable to Obtain Past Psychological History: Depression Smoking Status: Never smoker Past Alcohol Use History: None Reported Past Drug Use History: None Reported - Past Family History Father History Unknown: Yes Mother History Unknown: Yes General Exam General appearance: alert, in no apparent distress Head exam: Present: atraumatic, normocephalic Eye exam: Present: normal appearance. Absent: scleral icterus, conjunctival injection ENT exam: Present: normal oropharynx Neck exam: Present: normal inspection, full ROM. Absent: tenderness Respiratory exam: Present: normal lung sounds bilaterally. Absent: respiratory distress, wheezes, rales, rhonchi, stridor, accessory muscle use Cardiovascular Exam: Present: regular rate, normal rhythm, normal heart sounds. Absent: systolic murmur, diastolic murmur, rubs, gallop GI/Abdominal exam: Present: soft, distended, other (PEG tube present with small amount of what appears to be fibrin). Absent: tenderness, guarding, rebound, pulsatile mass Course Vital Signs 06/12/23 06/12/23 06/12/23 00:41 02:30 03:23 Temperature 98.1 F Pulse Rate 90 89 98 Respiratory 21 34 H 22 Rate Blood Pressure 155/86 156/79 155/61 O2 Sat by Pulse 93 L 97 97 Oximetry 06/12/23 03:54 Temperature Pulse Rate 95 Respiratory 22 Rate Blood Pressure O2 Sat by Pulse 97 Oximetry Medical Decision Making - Medical Decision Making Patient is 67-year-old woman here transferred to have further evaluation related to some subtle CT abnormalities suggestive of possible internal hernia. Case discussed with Dr. Higginbotham, who states that the patient will need follow-up CT scan with bowel contrast. Patient will be placed on observation under medical service pending result and surgical consult. - Lab Data Result diagrams: 06/12/23 01:42 06/12/23 01:42 Lab Results 06/12/23 06/12/23 Range/Units 01:42 01:42 WBC 7.9 (3.8-10.6) k/uL RBC 4.06 (3.80-5.40) m/uL Hgb 12.5 (11.4-16.0) gm/dL Hct 36.5 (34.0-46.0) % MCV 89.7 (80.0-100.0) fL MCH 30.8 (25.0-35.0) pg MCHC 34.3 (31.0-37.0) g/dL RDW 15.2 (11.5-15.5) % Plt Count 268 (150-450) k/uL MPV 8.0 Neutrophils % 71 % Lymphocytes % 17 % Monocytes % 4 % Eosinophils % 5 % Basophils % 1 % Neutrophils # 5.6 (1.3-7.7) k/uL Lymphocytes # 1.3 (1.0-4.8) k/uL Monocytes # 0.3 (0-1.0) k/uL Eosinophils # 0.4 (0-0.7) k/uL Basophils # 0.0 (0-0.2) k/uL Sodium 138 (137-145) mmol/L Potassium 5.6 H (3.5-5.1) mmol/L Chloride 105 (98-107) mmol/L Carbon Dioxide 25 (22-30) mmol/L Anion Gap 8 mmol/L BUN 25 H (7-17) mg/dL Creatinine 1.04 (0.52-1.04) mg/dL Est GFR (CKD-EPI)AfAm 65 (>60 ml/min/1.73 sqM) Est GFR (CKD-EPI)NonAf 56 (>60 ml/min/1.73 sqM) Glucose 110 H (74-99) mg/dL Calcium 8.7 (8.4-10.2) mg/dL Total Bilirubin 0.8 (0.2-1.3) mg/dL AST 37 H (14-36) U/L ALT 19 (4-34) U/L Alkaline Phosphatase 49 (38-126) U/L Total Protein 6.9 (6.3-8.2) g/dL Albumin 3.5 (3.5-5.0) g/dL Disposition Clinical Impression: Abdominal pain Disposition: ADMITTED IP TO THIS HOSP Condition: Fair Is patient prescribed a controlled substance at d/c from ED?: No Referrals: Jermaine Martin MD [Primary Care Provider] - 1-2 days
[2023-06-12] MEDS: SODIUM CHLORIDE 0.9% 1,000 ML IV SCH (04:38)
[2023-06-12] MEDS ORDERED: ACETAMINOPHEN TAB 325 MG TAB PO PRN (14:37)
--- NOTE | 2023-06-12 14:51 | P.GSCN ---
History of Present Illness Consult date: 06/12/23 History of present illness: CHIEF COMPLAINT: Leakage around PEG tube HISTORY OF PRESENT ILLNESS: This is a 67-year-old female with a history of stroke and is nonverbal. Patient's history was obtained from nursing staff and patient's chart. Patient initially went to [place] for evaluation of white drainage around the PEG tube site. They did a CT scan abdomen pelvis that had shown thickened bowel loops that were interpreted as possible sign of internal hernia. Patient lying in bed comfortably. Does not appear in any pain. Her PEG tube site is currently clean and dry and intact. There are some mild irritation around the PEG tube site. There was a CT scan abdomen pelvis completed here with IV contrast that reported hepatic steatosis. Metallic screw in the cecum which was likely ingested. No bowel obstruction. No free intraperitoneal air. 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 PAST SURGICAL HISTORY: peg tube MEDICATIONS: See below ALLERGIES: See below SOCIAL HISTORY: No illicit drug use. REVIEW OF SYSTEMS: CONSTITUTIONAL: Denies fever or chills. HEENT: Denies blurred vision, vision changes, or eye pain. Denies hemoptysis CARDIOVASCULAR: Denies chest pain or pressure. RESPIRATORY: No shortness of breath. GASTROINTESTINAL: See HPI for pertinent findings HEMATOLOGIC: Denies bleeding disorders. GENITOURINARY: Denies any blood in urine or increased urinary frequency. SKIN: Denies pruitis. Denies rash. PHYSICAL EXAM: VITAL SIGNS: Reviewed GENERAL: Well-developed in no acute distress. HEENT: No sclera icterus. Extraocular movements grossly intact. Moist buccal mucosa. Head is atraumatic, normocephalic. No nasal drainage. ABDOMEN: Soft. Obese. Nondistended. nontender. PEG tube site with no drainage currently. Mild skin irritation around peg site NEUROLOGIC: awake and alert. nonverbal LABORATORY DATA: WBC 7.9 Hgb 12.5 platelets 268 na 136 potassium is 5.6 creatinine 1.04 IMAGING: CT scan abdomen and pelvis reports hepatic steatosis. PEG tube in stomach. No hydronephrosis of the right kidney. Absent left kidney. Distention of the endometrium measuring 2 cm. Recommend nonemergent pelvic ultrasound. Metallic screw in the cecum which was likely ingested. Diverticulosis without acute diverticulitis. No small bowel obstruction. No free intraperitoneal air. ASSESSMENT: 1. Abdominal pain improved 2. Drainage around PEG tube site prior to admission. Currently no drainage. 3. Metallic screw in the cecum noted on CAT scan possibly due to ingestion 3. History of CVA. Nonverbal. Dysphagia with PEG tube PLAN: -No surgical intervention planned -Resume patient's tube feeds. -Continue to monitor -Continue supportive care Physician Roads Superintendent note has been reviewed by physician. Signing provider agrees with the documented findings, assessment, and plan of care. 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 History of Any Multi-Drug Resistant Organisms: None Reported Past Surgical History: Unable to Obtain Additional Past Surgical History / Comment(s): PEG Past Anesthesia/Blood Transfusion Reactions: Unable to Obtain Past Psychological History: Depression Smoking Status: Never smoker Past Alcohol Use History: None Reported Past Drug Use History: None Reported - Past Family History Father History Unknown: Yes Mother History Unknown: Yes Medications and Allergies Home Medications Medication Instructions Recorded Confirmed Type Aspirin EC [Ecotrin Low Dose] 81 mg PO DAILY@0500 01/22/20 06/12/23 History Levothyroxine Sodium [Synthroid] 150 mcg PO DAILY@0500 01/22/20 06/12/23 History bisacodyL [Dulcolax] 10 mg RECTAL Q72H PRN 01/22/20 06/12/23 History carBAMazepine [carBAMazepine Oral 200 mg PEG/G-TUBE BID@0500,209901/22/20 06/12/23 History Susp] levETIRAcetam [Keppra Oral 500 mg PEG/G-TUBE BID@0500,209901/22/20 06/12/23 History Solution] cloBAZam [Onfi] 10 mg PO HS@209906/16/20 06/12/23 History Acetaminophen Tab [Tylenol] 650 mg PO Q4H PRN 06/12/23 06/12/23 History Calcitriol Oral Solution 1mcg/Ml 0.25 mcg PEG/G-TUBE WE@05006/12/23 06/12/23 History Cholecalciferol [Vitamin D3 (25 25 mcg PO HS@209906/12/23 06/12/23 History Mcg = 1000 Iu)] Dextran/Hypromellose/Glycerin 1 drop BOTH EYES BID@0500,209906/12/23 06/12/23 History [Artificial Tears 0.1-0.2-0.3%] Furosemide [Lasix] 20 mg PEG/G-TUBE DAILY@05006/12/23 06/12/23 History Loperamide [Imodium] 2 mg PO QID PRN 06/12/23 06/12/23 History Methenamine Hippurate [Hiprex] 1 gm PO BID@0500,209906/12/23 06/12/23 History Neutrogena T/Gel External Shampoo 1 applic TOPICAL SUTH 06/12/23 06/12/23 History 4% Omeprazole [PriLOSEC] 20 mg PO DAILY@0500 06/12/23 06/12/23 History allopurinoL [Zyloprim] 200 mg PO HS@209906/12/23 06/12/23 History amLODIPine [Norvasc] 5 mg PO DAILY@0500 06/12/23 06/12/23 History hydroCHLOROthiazide [Hydrodiuril] 12.5 mg PO DAILY@0500 06/12/23 06/12/23 History Allergies Allergy/AdvReac Type Severity Reaction Status Date / Time No Known Allergies Allergy Verified 06/12/23 11:05 Surgical - Exam Vital Signs Temp Pulse Resp BP Pulse Ox 98.1 F 90 21 155/86 93 L 06/12/23 00:41 06/12/23 00:41 06/12/23 00:41 06/12/23 00:41 06/12/23 00:41 Results - Labs 06/12/23 01:42 06/12/23 01:42 Abnormal Lab Results - Last 24 Hours (Table) 06/12/23 Range/Units 01:42 Potassium 5.6 H (3.5-5.1) mmol/L BUN 25 H (7-17) mg/dL Glucose 110 H (74-99) mg/dL AST 37 H (14-36) U/L Diabetes panel 06/12/23 Range/Units 01:42 Sodium 138 (137-145) mmol/L Potassium 5.6 H (3.5-5.1) mmol/L Chloride 105 (98-107) mmol/L Carbon Dioxide 25 (22-30) mmol/L BUN 25 H (7-17) mg/dL Creatinine 1.04 (0.52-1.04) mg/dL Glucose 110 H (74-99) mg/dL Calcium 8.7 (8.4-10.2) mg/dL AST 37 H (14-36) U/L ALT 19 (4-34) U/L Alkaline Phosphatase 49 (38-126) U/L Total Protein 6.9 (6.3-8.2) g/dL Albumin 3.5 (3.5-5.0) g/dL Calcium panel 06/12/23 Range/Units 01:42 Calcium 8.7 (8.4-10.2) mg/dL Albumin 3.5 (3.5-5.0) g/dL Pituitary panel 06/12/23 Range/Units 01:42 Sodium 138 (137-145) mmol/L Potassium 5.6 H (3.5-5.1) mmol/L Chloride 105 (98-107) mmol/L Carbon Dioxide 25 (22-30) mmol/L BUN 25 H (7-17) mg/dL Creatinine 1.04 (0.52-1.04) mg/dL Glucose 110 H (74-99) mg/dL Calcium 8.7 (8.4-10.2) mg/dL Adrenal panel 06/12/23 Range/Units 01:42 Sodium 138 (137-145) mmol/L Potassium 5.6 H (3.5-5.1) mmol/L Chloride 105 (98-107) mmol/L Carbon Dioxide 25 (22-30) mmol/L BUN 25 H (7-17) mg/dL Creatinine 1.04 (0.52-1.04) mg/dL Glucose 110 H (74-99) mg/dL Calcium 8.7 (8.4-10.2) mg/dL Total Bilirubin 0.8 (0.2-1.3) mg/dL AST 37 H (14-36) U/L ALT 19 (4-34) U/L Alkaline Phosphatase 49 (38-126) U/L Total Protein 6.9 (6.3-8.2) g/dL Albumin 3.5 (3.5-5.0) g/dL
[2023-06-12] MEDS: HEPARIN SODIUM,PORCINE 5,000 UNIT/ML 1 ML VIAL SQ SCH (15:50)
[2023-06-12 16:14] LABS: BUN/Creat Ratio 16.42 Ratio (12.00-20.00); Blood Urea Nitrogen 19.7 mg/dL (9.0-27.0); Calcium 8.8 mg/dL (8.7-10.3); Carbon Dioxide 24.9 mmol/L (21.6-31.8); Chloride 102 mmol/L (96-109); Glucose 94 mg/dL (70-110); Potassium 4.4 mmol/L (3.5-5.5); Sodium 141 mmol/L (135-145)
[2023-06-12] MEDS: CLOBAZAM 10 MG PO SCH (22:26)
[2023-06-12] MEDS: carBAMazepine 200 MG TAB PEG/G-TUBE SCH (22:30)
[2023-06-12] MEDS: allopurinoL 100 MG TAB PO SCH (22:30)
[2023-06-12] MEDS: levETIRAcetam ORAL SOLN 500 MG/5 ML CUP PEG/G-TUBE SCH (22:30)
[2023-06-12] MEDS: CHOLECALCIFEROL 25 MCG (1000 IU) TABLET PO SCH (22:30)
[2023-06-12] MEDS: ARTIFICIAL TEARS-HYPROMELLOSE DROPS 15 ML BTL BOTH EYES SCH (22:57)
--- NOTE | 2023-06-12 23:41 | P.HPIM ---
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 with PEG tube, bladder distention/indwelling catheter, gait disturbance,, history of seizure disorder, depression and hypothyroidism. Patient is nonverbal at baseline. Patient was seen at [facility] initially for evaluation of discharge from the PEG tube insertion site and ab dominal pain. CT of the abdomen pelvis was done showed thickened bowel loops that were interpreted as possible sign off internal hernia. Patient was transferred to [facility] for evaluation by general surgery. Repeat CT of the abdomen pelvis with contrast was done which showed hepatic steatosis. No hydronephrosis of the right kidney absent left kidney correlate for nephrectomy. Pantoja catheter terminates in the urinary bladder. Distention of the endometrium measures 2 cm recommend nonemergent pelvic ultrasound given the patient is menopausal. Metallic screws in the cecum which was likely ingested. Diverticulosis without acute diverticulitis. 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 History of Any Multi-Drug Resistant Organisms: None Reported Past Surgical History: Unable to Obtain Additional Past Surgical History / Comment(s): PEG Past Anesthesia/Blood Transfusion Reactions: Unable to Obtain Past Psychological History: Depression Smoking Status: Never smoker Past Alcohol Use History: None Reported Past Drug Use History: None Reported - Past Family History Father History Unknown: Yes Mother History Unknown: Yes Medications and Allergies Home Medications Medication Instructions Recorded Confirmed Type Aspirin EC [Ecotrin Low Dose] 81 mg PO DAILY@0500 01/22/20 03/18/24 History Levothyroxine Sodium [Synthroid] 150 mcg PO DAILY@49901/22/20 06/12/23 History bisacodyL [Dulcolax] 10 mg RECTAL Q72H PRN 01/22/20 06/12/23 History carBAMazepine [carBAMazepine Oral 200 mg PEG/G-TUBE BID@499,209901/22/20 06/12/23 History Susp] levETIRAcetam [Keppra Oral 500 mg PEG/G-TUBE BID@499,209901/22/20 06/12/23 History Solution] cloBAZam [Onfi] 10 mg PO HS@209906/16/20 06/12/23 History Acetaminophen Tab [Tylenol] 650 mg PO Q4H PRN 06/12/23 06/12/23 History Calcitriol Oral Solution 1mcg/Ml 0.25 mcg PEG/G-TUBE WE@49906/12/23 06/12/23 History Cholecalciferol [Vitamin D3 (25 25 mcg PO HS@209906/12/23 06/12/23 History Mcg = 1000 Iu)] Dextran/Hypromellose/Glycerin 1 drop BOTH EYES BID@499,209906/12/23 06/12/23 History [Artificial Tears 0.1-0.2-0.3%] Furosemide [Lasix] 20 mg PEG/G-TUBE DAILY@49906/12/23 06/12/23 History Loperamide [Imodium] 2 mg PO QID PRN 06/12/23 06/12/23 History Methenamine Hippurate [Hiprex] 1 gm PO BID@499,209906/12/23 06/12/23 History Neutrogena T/Gel External Shampoo 1 applic TOPICAL SUTH 06/12/23 06/12/23 History 4% Omeprazole [PriLOSEC] 20 mg PO DAILY@49906/12/23 06/12/23 History allopurinoL [Zyloprim] 200 mg PO HS@209906/12/23 06/12/23 History amLODIPine [Norvasc] 5 mg PO DAILY@49906/12/23 06/12/23 History hydroCHLOROthiazide [Hydrodiuril] 12.5 mg PO DAILY@49906/12/2306/11/24 History Allergies Allergy/AdvReac Type Severity Reaction Status Date / Time No Known Allergies Allergy Verified 06/12/23 11:05 Physical Exam Vitals: Vital Signs Temp Pulse Pulse Resp BP BP Pulse Ox 06/12/23 07:46 98.5 F 95 16 137/76 94 L 06/12/23 05:23 98.5 F 93 24 121/72 92 L 06/12/23 04:40 93 24 155/88 95 06/12/23 03:54 95 22 97 06/12/23 03:23 98 22 155/61 97 06/12/23 02:30 89 34 H 156/79 97 06/12/23 00:41 98.1 F 90 21 155/86 93 L Intake and Output 06/11/23 06/12/23 06/12/23 22:59 06:59 14:59 Other: Voiding Method Indwelling Catheter Weight 84 kg PHYSICAL EXAMINATION: Patient is lying in the bed awake alert but nonverbal at baseline... HEENT: Normocephalic. Neck is supple. Pupils reactive. Nostrils clear. Oral cavity is moist. Neck reveals no JVD, carotid bruits, or thyromegaly. CHEST EXAMINATION: Trachea is central. Symmetrical expansion. Lung zheng clear to auscultation and percussion. CARDIAC: Normal S1, S2 with no gallops. No murmurs ABDOMEN: Soft. Bowel sounds present. PEG tube site intact and clean. No drainage noted.. No organomegaly. No abdominal bruits. Extremities: reveal no edema. No clubbing or cyanosis Neurologically awake, alert but not oriented.. No gross focal deficits noted Skin: No rash or skin lesions. Psychiatric: Coperative. Could not be assessed. Musculoskeletal: No joint swelling or deformity. Results CBC & Chem 7: 06/12/23 01:42 06/12/23 11:21 Labs: Abnormal Lab Results - Last 24 Hours (Table) 06/12/23 Range/Units 01:42 Potassium 5.6 H (3.5-5.1) mmol/L BUN 25 H (7-17) mg/dL Glucose 110 H (74-99) mg/dL AST 37 H (14-36) U/L Thrombosis Risk Factor Assmnt - DVT/VTE Prophylaxis DVT/VTE Prophylaxis: Pharmacologic Prophylaxis ordered Assessment and Plan Assessment: Abdominal pain resolved now. CT abdomen pelvis showed no acute process. Drainage around the PEG tube insertion site. No drainage and site looks clean now. Metallic screw in the cecum likely ingested. Hyperkalemia due to hemolyzed sample. Follow-up repeat potassium. History of developmental delay and patient is nonverbal at baseline Dysphagia with PEG tube placement GERD Hypothyroidism Seizure disorder Depression DVT prophylaxis with heparin subcu Plan: Patient will be continued on IV hydration with normal saline. Currently nothing by mouth. General surgery is on board. Patient will be started back on PEG tube feeding once cleared by surgery. Continue with home medications and GI, DVT prophylaxis. Current pain management and follow-up closely. Time with Patient: Greater than 30
[2023-06-13] MEDS: amLODIPine 5 MG TAB PO SCH (00:07)
[2023-06-13] MEDS: ASPIRIN 81 MG PO SCH (05:32)
[2023-06-13] MEDS: LEVOTHYROXINE 75 MCG TAB PO SCH (05:32)
[2023-06-13] MEDS: PANTOPRAZOLE 40 MG TABLET PO SCH (05:32)
[2023-06-13 08:27] LABS: Amorphous Sediment,Urine Occasional /hpf; Appearance,Urine Cloudy (Clear); Bacteria,Urine Rare /hpf; Bilirubin,Urine Negative (Negative); Blood,Urine Negative (Negative); Color,Urine Colorless; Glucose,Urine (UA) Negative (Negative); Ketones,Urine Negative (Negative); Leukocyte Esterase,Urine Small (Negative); Nitrite,Urine Positive (Negative); Protein,Urine 1+ (Negative); RBC,Urine <1 /hpf (0-5); Specific Gravity,Urine 1.018 (1.001-1.035); Squamous Epithelial Cell,Urine 2 /hpf (0-4); Urobilinogen,Urine <2.0 mg/dL (<2.0); WBC,Urine 10 /hpf (0-5)
[2023-06-13 08:55] LABS: Basophils # (A) 0.04 X 10*3/uL (0.00-0.10); Basophils % (A) 0.7 %; Eosinophils # (A) 0.31 X 10*3/uL (0.04-0.35); Eosinophils % (A) 5.4 %; HCT 37.8 % (37.2-46.3); HGB 12.4 g/dL (12.0-15.0); Lymphocytes # (A) 1.23 X 10*3/uL (0.90-5.00); Lymphocytes % (A) 21.5 %; MCH 29.7 pg (27.0-32.0); MCHC 32.8 g/dL (32.0-37.0); MCV 90.4 FL (80.0-97.0); Mean Platelet Volume 9.8 FL (9.5-12.2); Monocytes # (A) 0.38 X 10*3/uL (0.20-1.00); Monocytes % (A) 6.6 %; NRBC Per 100 WBC 0 X 10*3/uL (0.00-0.01); Neutrophils # (A) 3.69 X 10*3/uL (1.80-7.70); Neutrophils % (A) 64.6 %; Platelet Count 277 X 10*3/uL (140-440); RBC 4.18 X 10*6/uL (4.10-5.20); RDW 14.8 % (11.5-14.5); WBC 5.72 X 10*3/uL (4.50-10.00)
[2023-06-13 09:07] LABS: BUN/Creat Ratio 17.08 Ratio (12.00-20.00); Blood Urea Nitrogen 20.5 mg/dL (9.0-27.0); Calcium 9.4 mg/dL (8.7-10.3); Carbon Dioxide 26.5 mmol/L (21.6-31.8); Chloride 104 mmol/L (96-109); Glucose 126 mg/dL (70-110); Potassium 4.3 mmol/L (3.5-5.5); Sodium 143 mmol/L (135-145)
--- NOTE | 2023-06-13 13:27 | P.PN ---
Subjective Progress Note Date: 06/13/23 CHIEF COMPLAINT: Abdominal pain HISTORY OF PRESENT ILLNESS: No new complaints reported. No evidence of a bdominal pain. She is tolerating tube feeds. No drainage from PEG tube site per nursing staff. Afebrile. WBC 5.72 Hgb 12.4 platelets 277 PHYSICAL EXAM: VITAL SIGNS: Reviewed. GENERAL: Well-developed in no acute distress. ABDOMEN: Soft. Nondistended. Nontender. NEUROLOGIC: awake. nonverbal ASSESSMENT: 1. Abdominal pain resolved 2. Drainage around PEG tube site prior to admission. Currently no drainage. 3. Metallic screw in the cecum noted on CAT scan possibly due to ingestion. Shanique steve chronic 3. History of CVA. Nonverbal. Dysphagia with PEG tube PLAN: -No surgical intervention planned -Continue tube feeds -Patient can be discharged from surgical standpoint when medically cleared Physician Tanning Salon Attendant note has been reviewed by physician. Signing provider agrees with the documented findings, assessment, and plan of care. Objective - Vital Signs Vital signs: Vital Signs Temp 97.7 F 06/13/23 07:42 Pulse 81 06/13/23 07:42 Resp 17 06/13/23 07:42 BP 141/69 06/13/23 07:42 Pulse Ox 90 L 06/13/23 07:42 FiO2 Intake & Output 06/12/23 06/13/23 06/13/23 18:59 06:59 18:59 Output Total 750 Balance -750 Weight 84 kg 83 kg Output: Urine 750 Other: Voiding Method Indwelling Catheter Indwelling Catheter Indwelling Catheter - Labs CBC & Chem 7: 06/13/23 04:41 06/13/23 04:41 Labs: Abnormal Lab Results - Last 24 Hours (Table) 06/12/23 06/13/23 06/13/23 Range/Units 11:21 04:41 04:41 RDW 14.8 H (11.5-14.5) % Immature Gran # 0.07 H (0.00-0.04) X 10*3/uL Anion Gap 14.10 H 12.50 H (4.00-12.00) mmol/L Est GFR (CKD-EPI) 50 L 50 L (>=60) Glucose 126 H (70-110) mg/dL Urine Appearance (Clear) Urine Protein (Negative) Urine Nitrite (Negative) Ur Leukocyte Esterase (Negative) Urine WBC (0-5) /hpf Urine WBC Clumps (None) /hpf Amorphous Sediment (None) /hpf Urine Bacteria (None) /hpf 06/13/23 Range/Units 05:45 RDW (11.5-14.5) % Immature Gran # (0.00-0.04) X 10*3/uL Anion Gap (4.00-12.00) mmol/L Est GFR (CKD-EPI) (>=60) Glucose (70-110) mg/dL Urine Appearance Cloudy H (Clear) Urine Protein 1+ H (Negative) Urine Nitrite Positive H (Negative) Ur Leukocyte Esterase Small H (Negative) Urine WBC 10 H (0-5) /hpf Urine WBC Clumps Rare H (None) /hpf Amorphous Sediment Occasional H (None) /hpf Urine Bacteria Rare H (None) /hpf
[2023-06-13] MEDS: LEVOFLOXACIN 500MG-D5W PMX 500 MG in DEXTROSE/WATER 1 100ML.BAG IVPB SCH (16:04)
[2023-06-13] MEDS: hydrALAZINE HCL 25 MG TAB PO STA (21:28)
--- NOTE | 2023-06-13 23:45 | P.PN ---
Subjective Progress Note Date: 06/13/23 Patient is a 67-year-old female with a past medical history of developmental disorder, oriented to person only, neuromuscular dysfunction, dysphagia/n.p.o. with PEG tube, bladder distention/indwelling catheter, gait disturbance,, history of seizure disorder, depression and hypothyroidism. Patient is nonverbal at baseline. Patient was seen at [facility] initially for evaluation of discharge from the PEG tube insertion site and abdominal pain. CT of the abdomen pelvis was done showed thickened bowel loops that were interpreted as possible sign off internal hernia. Patient was transferred to [facility] for evaluation by general surgery. Repeat CT of the abdomen pelvis with contrast was done which showed hepatic steatosis. No hydronephrosis of the right kidney absent left kidney correlate for nephrectomy. Pantoja catheter terminates in the urinary bladder. Distention of the endometrium measures 2 cm recommend nonemergent pelvic ultrasound given the patient is menopausal. Metallic screws in the cecum which was likely ingested. Diverticulosis without acute diverticulitis. Laboratory data showed sodium 138 potassium 5.6 Chloride 105 bicarb is 25 BUN 25 and creatinine 1.04 and blood sugar 110 AST 37 ALT 19 and alk phos 49 and albumin 3.5, WBC 7.9 hemoglobin 12.5 and platelets 268 06/13/2023 Patient is lying in the bed. Awake alert but nonverbal Denies any abdominal pain today. Did have a bowel movement. No complaints of chest pain or shortness of breath. Pantoja catheter has been exchanged. Urinalysis showed cloudy with nitrite positive and small leukocyte esterase with elevated WBCs. Started on antibiotics for possible UTI and follow-up urine culture report. Patient does have prior history of Pseudomonas urinary tract infection. Tolerating tube feedings. Anticipate discharge back to [facility] tomorrow. Current medications reviewed. Objective - Vital Signs Vital signs: Vital Signs Temp 98.2 F 06/13/23 19:46 Pulse 90 06/13/23 19:46 Resp 14 06/13/23 19:46 BP 185/75 06/13/23 19:46 Pulse Ox 93 L 06/13/23 19:46 FiO2 Intake & Output 06/13/23 06/13/23 06/14/23 06:59 18:59 06:59 Output Total 750 Balance -750 Weight 83 kg Output: Urine 750 Other: Voiding Method Indwelling Catheter Indwelling Catheter - Exam PHYSICAL EXAMINATION: Patient is lying in the bed awake alert but nonverbal at baseline... HEENT: Normocephalic. Neck is supple. Pupils reactive. Nostrils clear. Oral cavi ty is moist. Neck reveals no JVD, carotid bruits, or thyromegaly. CHEST EXAMINATION: Trachea is central. Symmetrical expansion. Lung zheng clear to auscultation and percussion. CARDIAC: Normal S1, S2 with no gallops. No murmurs ABDOMEN: Soft. Bowel sounds present. PEG tube site intact and clean. No drainage noted.. No organomegaly. No abdominal bruits. Extremities: reveal no edema. No clubbing or cyanosis Neurologically awake, alert but not oriented.. No gross focal deficits noted Skin: No rash or skin lesions. Psychiatric: Coperative. Could not be assessed. Musculoskeletal: No joint swelling or deformity. - Labs CBC & Chem 7: 06/14/23 04:36 06/14/23 04:36 Labs: Abnormal Lab Results - Last 24 Hours (Table) 06/13/23 06/13/23 06/13/23 Range/Units 04:41 04:41 05:45 RDW 14.8 H (11.5-14.5) % Immature Gran # 0.07 H (0.00-0.04) X 10*3/uL Anion Gap 12.50 H (4.00-12.00) mmol/L Est GFR (CKD-EPI) 50 L (>=60) Glucose 126 H (70-110) mg/dL Urine Appearance Cloudy H (Clear) Urine Protein 1+ H (Negative) Urine Nitrite Positive H (Negative) Ur Leukocyte Esterase Small H (Negative) Urine WBC 10 H (0-5) /hpf Urine WBC Clumps Rare H (None) /hpf Amorphous Sediment Occasional H (None) /hpf Urine Bacteria Rare H (None) /hpf Assessment and Plan Assessment: Abdominal pain resolved now. CT abdomen pelvis showed no acute process. Drainage around the PEG tube insertion site. No drainage and site looks clean now. Metallic screw in the cecum likely ingested. Which is possibly chronic. Hyperkalemia due to hemolyzed sample. Follow-up repeat potassium normalized. Possible urinary tract infection Prior history of UTI with Pseudomonas aeruginosa History of developmental delay and patient is nonverbal at baseline Dysphagia with PEG tube placement GERD Hypothyroidism Seizure disorder Depression DVT prophylaxis with heparin subcu Plan: Patient will be continued on IV hydration with normal saline. Currently nothing by mouth. Patient is tolerating PEG tube feeding. No leak is noted. General surgery is on board. Patient was started on Levaquin and follow-up urine culture report. Continue with home medications and GI, DVT prophylaxis. Current pain management and follow-up closely. Time with Patient: Greater than 30
[2023-06-14] MEDS: CALCITRIOL PEG/G-TUBE SCH (04:44)
[2023-06-14 08:47] LABS: Basophils # (A) 0.04 X 10*3/uL (0.00-0.10); Basophils % (A) 0.6 %; Eosinophils # (A) 0.37 X 10*3/uL (0.04-0.35); Eosinophils % (A) 5.4 %; HCT 39.1 % (37.2-46.3); HGB 12.9 g/dL (12.0-15.0); Lymphocytes # (A) 1.15 X 10*3/uL (0.90-5.00); Lymphocytes % (A) 16.8 %; MCH 29.5 pg (27.0-32.0); MCV 89.3 FL (80.0-97.0); Mean Platelet Volume 9.9 FL (9.5-12.2); Monocytes # (A) 0.41 X 10*3/uL (0.20-1.00); NRBC Per 100 WBC 0 X 10*3/uL (0.00-0.01); Neutrophils # (A) 4.78 X 10*3/uL (1.80-7.70); Neutrophils % (A) 69.9 %; Platelet Count 282 X 10*3/uL (140-440); RBC 4.38 X 10*6/uL (4.10-5.20); RDW 14.5 % (11.5-14.5); WBC 6.84 X 10*3/uL (4.50-10.00)
[2023-06-14 09:13] LABS: BUN/Creat Ratio 20.42 Ratio (12.00-20.00); Blood Urea Nitrogen 24.5 mg/dL (9.0-27.0); Carbon Dioxide 22.7 mmol/L (21.6-31.8); Chloride 108 mmol/L (96-109); Glucose 134 mg/dL (70-110); Potassium 4.4 mmol/L (3.5-5.5); Sodium 144 mmol/L (135-145)
[2023-06-14 14:36] VITALS: BMI 31.6
--- NOTE | 2023-06-14 14:41 | P.DS ---
Providers Date of admission: 06/12/23 04:05 Expected date of discharge: 06/14/23 Attending physician: Tk John Consults: 06/12/23 04:02 Consult Physician Routine Consulting Provider: Willie Blanco Consult Reason/Comments: abdominal distension/possible internal hernia Do you want consulting provider notified?: Already Contacted Primary care physician: Jermaine [facility] Course: Discharge diagnosis Abdominal pain resolved now. CT abdomen pelvis showed no acute process. Drainage around the PEG tube insertion site. No drainage and site looks clean now. Metallic screw in the cecum likely ingested. Which is possibly chronic. Hyperkalemia due to hemolyzed sample. Follow-up repeat potassium normalized. Possible urinary tract infection. Complete antibiotic course with Levaquin. 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 with PEG tube, bladder distention/indwelling catheter, gait disturbance,, history of seizure disorder, depression and hypothyroidism. Patient is nonverbal at baseline. Patient was seen at [facility] [place] initially for evaluation of discharge from the PEG tube insertion site and abdominal pain. CT of the abdomen pelvis was done showed thickened bowel loops that were interpreted as possible sign off internal hernia. Patient was transferred to [facility] for evaluation by general surgery. Repeat CT of the abdomen pelvis with contrast was done which showed hepatic steatosis. No hydronephrosis of the right kidney absent left kidney correlate for nephrectomy. Pantoja catheter terminates in the urinary bladder. Distention of the endometrium measures 2 cm recommend nonemergent pelvic ultrasound given the patient is menopausal. Metallic screws in the cecum which was likely ingested. Diverticulosis without acute diverticulitis. Laboratory data showed sodium 138 potassium 5.6 Chloride 105 bicarb is 25 BUN 25 and creatinine 1.04 and blood sugar 110 AST 37 ALT 19 and alk phos 49 and albumin 3.5, WBC 7.9 hemoglobin 12.5 and platelets 268 06/13/2023 Patient is lying in the bed. Awake alert but nonverbal Denies any abdominal pain today. Did have a bowel movement. No complaints of chest pain or shortness of breath. Pantoja catheter has been exchanged. Urinalysis showed cloudy with nitrite positive and small leukocyte esterase elevated WBCs. Started on antibiotics for possible UTI and follow-up urine culture report. Patient does have prior h istory of Pseudomonas urinary tract infection. Tolerating tube feedings. Anticipate discharge back to [facility] tomorrow. 06/14/2023 Patient currently lying in the bed. Awake alert and nonverbal at baseline. No complaints of abdominal pain. No diarrhea. Did have a bowel movement yesterday. No chest pain or shortness of breath. Patient has been afebrile. Continued on antibiotics Levaquin for urinary tract infection. Urine culture is not back yet. Patient will be continued on Levaquin via PEG tube. Pantoja catheter was replaced. No other acute overnight issues. Patient is being discharged back to [facility]. PHYSICAL EXAMINATION: Patient is lying in the bed awake alert but nonverbal at baseline... HEENT: Normocephalic. Neck is supple. Pupils reactive. Nostrils clear. Oral cavity is moist. Neck reveals no JVD, carotid bruits, or thyromegaly. CHEST EXAMINATION: Trachea is central. Symmetrical expansion. Lung zheng clear to auscultation and percussion. CARDIAC: Normal S1, S2 with no gallops. No murmurs ABDOMEN: Soft. Bowel sounds present. PEG tube site intact and clean. No drainage noted.. No organomegaly. No abdominal bruits. Extremities: reveal no edema. No clubbing or cyanosis Neurologically awake, alert but not oriented.. No gross focal deficits noted Skin: No rash or skin lesions. Psychiatric: Coperative. Could not be assessed. Musculoskeletal: No joint swelling or deformity. Vital Signs - 24 hr 06/13/23 06/14/23 06/14/23 19:46 01:30 07:35 Temperature 98.2 F 97.7 F 98.3 F Pulse Rate [ 90 87 85 Pulse Oximetery ] Respiratory 14 14 17 Rate Blood Pressure 185/75 182/77 147/70 [Right Arm] O2 Sat by Pulse 93 L 93 L 93 L Oximetry 06/14/23 09:29 Temperature Pulse Rate [ 85 Pulse Oximetery ] Respiratory 17 Rate Blood Pressure [Right Arm] O2 Sat by Pulse Oximetry Total time taken greater than 35 minutes including 18 minutes for counseling and coordination of care. Patient Condition at Discharge: Fair Plan - Discharge Summary New Discharge Prescriptions: New levoFLOXacin 500 mg PO DAILY 3 Days #3 tab Sennosides [Senokot] 8.6 mg PO HS PRN #20 tablet PRN Reason: Constipation Continue bisacodyL [Dulcolax] 10 mg RECTAL Q72H PRN PRN Reason: Constipation levETIRAcetam [Keppra Oral Solution] 500 mg PEG/G-TUBE BID@0500,2100 carBAMazepine [carBAMazepine Oral Susp] 200 mg PEG/G-TUBE BID@0500,2099 Levothyroxine Sodium [Synthroid] 150 mcg PO DAILY@0500 Aspirin EC [Ecotrin Low Dose] 81 mg PO DAILY@0500 Loperamide [Imodium] 2 mg PO QID PRN PRN Reason: Loose Stool Methenamine Hippurate [Hiprex] 1 gm PO BID@0500,2099 Neutrogena T/Gel External Shampoo 4% 1 applic TOPICAL SUTH cloBAZam [Onfi] 10 mg PO HS@2100 Dextran/Hypromellose/Glycerin [Artificial Tears 0.1-0.2-0.3%] 1 drop BOTH EYES BID@0500,2099 Acetaminophen Tab [Tylenol] 650 mg PO Q4H PRN PRN Reason: Pain Omeprazole [PriLOSEC] 20 mg PO DAILY@0500 hydroCHLOROthiazide [Hydrodiuril] 12.5 mg PO DAILY@0500 allopurinoL [Zyloprim] 200 mg PO HS@2100 Cholecalciferol [Vitamin D3 (25 Mcg = 1000 Iu)] 25 mcg PO HS@2100 Calcitriol Oral Solution 1mcg/Ml 0.25 mcg PEG/G-TUBE WE@0500 amLODIPine [Norvasc] 5 mg PO DAILY@0500 Discontinued Furosemide [Lasix] 20 mg PEG/G-TUBE DAILY@0500 Discharge Medication List Aspirin EC [Ecotrin Low Dose] 81 mg PO DAILY@0500 01/22/20 [History] Levothyroxine Sodium [Synthroid] 150 mcg PO DAILY@0500 01/22/20 [History] bisacodyL [Dulcolax] 10 mg RECTAL Q72H PRN 01/22/20 [History] carBAMazepine [carBAMazepine Oral Susp] 200 mg PEG/G-TUBE BID@0500,209901/22/20 [History] levETIRAcetam [Keppra Oral Solution] 500 mg PEG/G-TUBE BID@0500,209901/22/20 [History] cloBAZam [Onfi] 10 mg PO HS@209906/16/20 [History] Acetaminophen Tab [Tylenol] 650 mg PO Q4H PRN 06/12/23 [History] Calcitriol Oral Solution 1mcg/Ml 0.25 mcg PEG/G-TUBE WE@49906/12/23 [History] Cholecalciferol [Vitamin D3 (25 Mcg = 1000 Iu)] 25 mcg PO HS@209906/12/23 [History] Dextran/Hypromellose/Glycerin [Artificial Tears 0.1-0.2-0.3%] 1 drop BOTH EYES BID@499,209906/12/23 [History] Loperamide [Imodium] 2 mg PO QID PRN 06/12/23 [History] Methenamine Hippurate [Hiprex] 1 gm PO BID@499,209906/12/23 [History] Neutrogena T/Gel External Shampoo 4% 1 applic TOPICAL SUTH 06/12/23 [History] Omeprazole [PriLOSEC] 20 mg PO DAILY@49906/12/23 [History] allopurinoL [Zyloprim] 200 mg PO HS@209906/12/23 [History] amLODIPine [Norvasc] 5 mg PO DAILY@49906/12/23 [History] hydroCHLOROthiazide [Hydrodiuril] 12.5 mg PO DAILY@49906/12/23 [History] Sennosides [Senokot] 8.6 mg PO HS PRN #20 tablet 06/14/23 [Rx] levoFLOXacin 500 mg PO DAILY 3 Days #3 tab 06/14/23 [Rx] Follow up Appointment(s)/Referral(s): Jermaine Martin MD [Primary Care Provider] - 1-2 days [facility] [NON-STAFF] - As Needed Discharge Disposition: TRANSFER TO SNF/ECF
--- NOTE | 2023-06-14 15:27 | P.PN ---
Subjective Progress Note Date: 06/14/23 CHIEF COMPLAINT: Abdominal pain HISTORY OF PRESENT ILLNESS: No new complaints reported. No evidence of a bdominal pain. She is tolerating tube feeds. No drainage from PEG tube site. Afebrile. WBC 6.84 PHYSICAL EXAM: VITAL SIGNS: Reviewed. GENERAL: Well-developed in no acute distress. ABDOMEN: Soft. Nondistended. Nontender. NEUROLOGIC: awake. nonverbal ASSESSMENT: 1. Abdominal pain resolved. NO evidence of internal hernia on repeat CT 2. Drainage around PEG tube site prior to admission. Currently no drainage. 3. Metallic screw in the cecum noted on CAT scan possibly due to ingestion. Likely chronic 3. History of CVA. Nonverbal. Dysphagia with PEG tube PLAN: -No surgical intervention planned -Continue tube feeds -Patient can be discharged from surgical standpoint when medically cleared Physician Tie Sawyer note has been reviewed by physician. Signing provider agrees with the documented findings, assessment, and plan of care. Objective - Vital Signs Vital signs: Vital Signs Temp 98.3 F 06/14/23 07:35 Pulse 85 06/14/23 09:29 Resp 17 06/14/23 09:29 BP 147/70 06/14/23 07:35 Pulse Ox 93 L 06/14/23 07:35 FiO2 Intake & Output 06/13/23 06/14/23 06/14/23 18:59 06:59 18:59 Output Total 700 Balance -700 Weight 81 kg 81 kg Output: Urine 700 Other: Voiding Method Indwelling Catheter Indwelling Catheter Indwelling Catheter - Labs CBC & Chem 7: 06/14/23 04:36 06/14/23 04:36 Labs: Abnormal Lab Results - Last 24 Hours (Table) 06/14/23 06/14/23 Range/Units 04:36 04:36 Immature Gran # 0.09 H (0.00-0.04) X 10*3/uL Eosinophils # 0.37 H (0.04-0.35) X 10*3/uL Anion Gap 13.30 H (4.00-12.00) mmol/L Est GFR (CKD-EPI) 50 L (>=60) BUN/Creatinine Ratio 20.42 H (12.00-20.00) Ratio Glucose 134 H (70-110) mg/dL
[2023-06-14 15:46] VITALS: BP 159/77; PULSE 82; RESP 18; TEMP 98.2
== END 2023-06-14 19:02 ==
LOC: EC 00:38 → 4SSUR 04:05
PROVIDERS: ADMIT Hospitalist; ATTEND Hospitalist
DX: R10.9 Unspecified abdominal pain (principal); K94.23 Gastrostomy malfunction; E87.5 Hyperkalemia; G40.909 Epilepsy, unspecified, not intractable, without status epilepticus; K21.9 Gastro-esophageal reflux disease without esophagitis; E03.9 Hypothyroidism, unspecified; F32.A Depression, unspecified; N18.9 Chronic kidney disease, unspecified; I69.320 Aphasia following cerebral infarction; Z86.19 Personal history of other infectious and parasitic diseases; Z87.440 Personal history of urinary (tract) infections; Z79.51 Long term (current) use of inhaled steroids; Z79.82 Long term (current) use of aspirin; Z79.890 Hormone replacement therapy; Z79.899 Other long term (current) drug therapy
CPT/HCPCS: 96365; 96372 ×3; 99285; 36415; 80053; 80048 ×3; 85025 ×3; 81001; 87086; 87077; 87186; 74177; G0378 ×3; J1644 ×3; J1956; Q9967

== ENCOUNTER → 2024-09-04 | Outpatient (CLI) | payer MEDICARE, OTHER ==
[2024-09-04 18:15] LABS: Basophils # (A) 0.05 X 10*3/uL (0.00-0.10); Basophils % (A) 0.6 %; Eosinophils # (A) 0.31 X 10*3/uL (0.04-0.35); Eosinophils % (A) 3.8 %; HCT 36.2 % (37.2-46.3); HGB 11.5 g/dL (12.0-15.0); Lymphocytes # (A) 1.97 X 10*3/uL (0.90-5.00); Lymphocytes % (A) 24.4 %; MCH 30.2 pg (27.0-32.0); MCHC 31.8 g/dL (32.0-37.0); Mean Platelet Volume 10.4 FL (9.5-12.2); Monocytes # (A) 0.43 X 10*3/uL (0.20-1.00); Monocytes % (A) 5.3 %; NRBC Per 100 WBC 0 X 10*3/uL (0.00-0.01); Neutrophils # (A) 5.25 X 10*3/uL (1.80-7.70); Platelet Count 268 X 10*3/uL (140-440); RBC 3.81 X 10*6/uL (4.10-5.20); RDW 14.6 % (11.5-14.5); WBC 8.08 X 10*3/uL (4.50-10.00)
[2024-09-04 20:04] LABS: ALT 20 U/L (8-44); AST 18 U/L (13-35); Albumin/Globulin Ratio 1.43 Ratio (1.60-3.17); Alkaline Phosphatase 85 U/L (41-126); BUN/Creat Ratio 27.94 Ratio (12.00-20.00); Blood Urea Nitrogen 47.5 mg/dL (9.0-27.0); Calcium 9.2 mg/dL (8.7-10.3); Carbon Dioxide 20.3 mmol/L (21.6-31.8); Chloride 106 mmol/L (96-109); Globulin 2.8 g/dL (1.6-3.3); Glucose 131 mg/dL (70-110); Potassium 5.1 mmol/L (3.5-5.5); Rheumatoid Factor, Qnt <15 IU/mL (0-15); Sodium 141 mmol/L (135-145); Total Bilirubin <0.2 mg/dL (0.3-1.2); Total Protein 6.8 g/dL (6.2-8.2); Uric Acid 5.7 mg/dL (2.9-7.7)
[2024-09-04 21:16] LABS: Hepatitis B Surface AB- Quant 50.8 mIU/mL
[2024-09-04 23:01] LABS: Cardiolipin Ab IgG Interp Negative (Negative); Cardiolipin IgA Antibody <2.0 U/mL
[2024-09-04 23:05] LABS: Cardiolipin Ab IgM Interp Negative (Negative); Cardiolipin IgM Antibody <1.5 U/mL
[2024-09-04 23:59] LABS: Cyclic Citrull Pep IgG Unit <1.5 U/mL (<=3.9); Cyclic Citrullinated Pep IgG Negative
[2024-09-05 12:39] LABS: APTT 37 Sec(s) (<43); Dilute Russell Viper Venom 42 Sec(s) (<44)
== END | disposition home or self-care (01) ==
LOC: LABWHC1 13:57
PROVIDERS: ATTEND Internal Medicine Rheumatology
DX: E79.0 Hyperuricemia without signs of inflammatory arthritis and tophaceous disease (principal); E03.9 Hypothyroidism, unspecified; N18.30 Chronic kidney disease, stage 3 unspecified; R76.8 Other specified abnormal immunological findings in serum
CPT/HCPCS: 36415; 80053; 83520; 84550; 85025; 85613; 85730; 86038; 86039; 86140; 86147; 86200; 86235; 86431; 86706; 87522